=== PATIENT | female | born 1950 | race Caucasian/White ===

== ENCOUNTER → 2016-03-18 | Outpatient (CLI) | payer OTHER ==
[~2016-03-18] MED LIST: ATOR-54 PO; CHOL100010 PO; CITA20TA4 PO; FLNIN NAE; GLC/500 PO; LEVO88TA PO; OMEP20CA9 PO
--- NOTE | 2016-03-18 13:53 | MAMMOGRAPHY REPORT ---
BILATERAL DIGITAL DIAGNOSTIC MAMMOGRAM TOMOSYNTHESIS WITH CAD AND TARGETED LEFT ULTRASOUND: 7 CLINICAL HISTORY: History of right breast cancer status post treatment. Also with history of left br east calcifications in which stereotactic biopsy yielded atypical ductal hyperplasia, status post hdz rgical excision. TECHNIQUE: Breast tomosynthesis in addition to standard 2D mammography was performed. Current study was also evaluated with a Computer Aided Detection (CAD) system. Bilateral CC and MLO 2-D and yemi synthesis images and spot magnification left CC and ML views were obtained. COMPARISON: Comparison is made to exams dated: 10/27/2015 mammogram, 09/28/2015 mammogram, 12/23/2014 mammogram, 07/19/2013 mammogram, 07/18/2012 mammogram, and 02/09/2011 mammogram - [facility]. BREAST COMPOSITION: The tissue of both breasts is heterogeneously dense, which may obscure small ma sses. FINDINGS: There are new post surgical changes in the left lateral breast from a left breast surgical excision for atypia. Spot magnification views of the left breast demonstrate a new 6 mm cluster of coarse heterogeneous calcifications in the left breast at approximately 2 to 3:00 in the region of the surgical bed. These do not appear to be associated with a vessel and therefore do not appear to be vascular in origin. Given the history of left breast calcifications yielding atypia, the calcif ications are indeterminate and stereotactic biopsy is recommended for further evaluation. The remainder of both breasts are stable compared to prior exams, without suspicious masses, calcifi cations, or areas of architectural distortion noted. Other lateral benign calcifications are not si gnificantly changed. There are stable postsurgical changes in the right breast from prior lumpectom y. A biopsy marker clip is again noted within the left medial anterior breast. Targeted ultrasound was performed of the previously seen left breast masses. In the left breast at 7:00, 2 cm from the nipple, again noted is a slightly hypoechoic mass which measures 5 x 3 x 4 mm, s table compared to the December 2014 exam. In the left breast at 9:00, 1 cm from the nipple, again no shilo is an oval hypoechoic parallel mass which measures 5 x 4 x 2 mm, also stable compared to the Dec exam. Another oval hypoechoic mass in the left breast at 9:00, 1 cm from the nipple perlita uring 3 x 2 x 2 mm is also not significantly changed compared to the September 2015 exam. In the left breast at 9:00 subareolar region, there is an oval anechoic cyst with an isoechoic portion seen ante riorly, with the isoechoic portion measuring 3 x 2 mm and the cystic portion measuring 6 x 3 mm. Th is is probably benign and likely represents a complicated cyst. In the left breast at 12:00, 1 cm f rom the nipple, again noted is a hypoechoic circumscribed mass which measures 3 x 2 x 3 mm, which ap pears decreased compared to the December 2014 exam and is therefore benign and likely represents a c yst. IMPRESSION: ACR BI-RADS CATEGORY 4: SUSPICIOUS, TARGETED ULTRASOUND ACR BI-RADS CATEGORY 4: SUSPICI OUS 1. New 6 mm cluster of calcifications in the left 2 to 3:00 breast. Given the history of prior lef t breast calcifications which yielded atypia, the calcifications are indeterminate and stereotactic biopsy is recommended for further evaluation. 2. Multiple small similar appearing masses in the left breast on ultrasound, most which are stable dating back to the December 2014 exam and are therefore probably benign. Recommend follow-up ultras ound of the left breast in 6 months to reevaluate. A phone call was made to the physician's office to confirm faxed results were received. The patient has been verbally notified of the results. Approximately 10% of breast cancers are not detected with mammography. A negative mammographic repor t should not delay biopsy if a clinically suggestive mass is present. Nancy Kelly M.D. ah/:03/18/2016 12:01:37 Passenger Coach Driver: Shweta CARDONA)(Julianna), [facility] letter sent: Abnormal 4/5 BI-RADS Code: ACR BI-RADS Category 4: Suspicious Ultrasound BI-RADS: ACR BI-RADS Category 4: Suspic ious
== END | disposition home or self-care (01) ==
LOC: C.MAMM 09:03
PROVIDERS: ATTEND Surgery
DX: Z85.3 Personal history of malignant neoplasm of breast (principal); Z12.39 Encounter for other screening for malignant neoplasm of breast; R92.1 Mammographic calcification found on diagnostic imaging of breast; N63 Unspecified lump in breast

== ENCOUNTER → 2016-04-14 | Outpatient (CLI) | payer OTHER ==
--- NOTE | 2016-04-14 13:22 | Discharge Instructions ---
Discharge Instructions Procedure Procedure Date: Apr 14, 2016. Reason for visit: Left Calcifications. Discharge Discharge Date: Apr 14, 2016. Discharge Diagnosis: status post breast biopsy Instructions Activity Recommendations: Additional Limitations (see below) Return to School/Work: no limitations Recommended Home Diet: No Limitations Provider Instructions: ACTIVITY RECOMMENDATIONS: * No lifting, pushing, pulling or exercising the affected side for three days. RETURN TO SCHOOL/WORK: * You may return to work/school after the procedure, but do not perform any strenuous activities for 24 to 48 hours. MEDICATIONS: * Tylenol (two 325 mg) every four to six hours if needed for mild pain (if not allergic to Tylenol). DIET: * Resume previous diet. SPECIAL CARE INSTRUCTIONS: * Keep biopsy site dry for 24 hours. May shower after 24 hours, but do not soak (bathe) incision. * May remove Tegaderm (plastic patch) tomorrow AFTER showering. * Leave the steri-strips on for one week. Allow the steri-strips to fall off by themselves. If not off after one week, you may remove them. You may place a Bandaid crosswise over the strips, if desired. * Apply ice 10 minutes on and 10 minutes off as needed. * Wear a bra at bedtime to sleep more comfortably for 2-3 days. * Your referring physician should have the results after approximately 5 to 7 business days. * Call for unusual bleeding, fever, drainage, etc or if you have any questions call during normal business hours or after hours call Dr Kelly, [phone]. FOLLOW UP VISIT: Follow-up with Referring Physician as scheduled. Allergies Coded Allergies: Adhesives (Verified Allergy, Unknown, ITCHY, 10/25/12) Latex1 -Allergic Contact Dermititis (Verified Allergy, Unknown, LOCALIZED RASH, 10/25/12) Vinny Corado Recommendations: Call your doctor if: * Temperature above 101 degrees * Pain not relieved by pain medicine ordered * There is increased drainage or redness from any incision * You have any unanswered questions or concerns. Your Doctors Instructions noted above were prepared by provider Nancy Kelly. Patient Signature Section: Patient Instructions Signature Page Patricia Ryan Patient (or Guardian) Signature/Date: I have read and understand the instructions given to me by my caregivers. Caregiver/RN/Doctor Signature/Date: The above-named patient and/or guardian has received patient instructions on this date. + Original Patient Signature Page (only) stays with chart. Please make copy for patient.
--- NOTE | 2016-04-14 15:37 | MAMMOGRAPHY REPORT ---
UNILATERAL LEFT DIGITAL DIAGNOSTIC MAMMOGRAM: 04/14/2016 CLINICAL HISTORY: Status post stereotactic biopsy of left breast calcifications. TECHNIQUE: Postprocedural left CC and LM views were obtained. COMPARISON: Comparison is made to exams dated: 03/18/2016 mammogram, 10/27/2015 stereotactic biopsy, 09/28/2015 mammogram, 12/23/2014 mammogram, and 07/19/2013 mammogram - [facility]. BREAST COMPOSITION: The tissue of the left breast is heterogeneously dense, which may obscure small masses. FINDINGS: A new biopsy marker clip is seen within the left breast status post stereotactic biopsy o f left 3:00 breast calcifications. There is mild medial migration of the biopsy marker clip from th e biopsy site by approximately 2 cm, likely due to accordion effect. However, there are some residu al calcifications at the biopsy site which could be localized if surgical excision is needed. No si gnificant postbiopsy hematoma is seen. IMPRESSION: POST PROCEDURE IMAGING FOR MARKER PLACEMENT New biopsy marker clip status post stereotactic biopsy of left breast calcifications. There is medi al migration of the biopsy marker clip as described above. Pathology results are pending. Approximately 10% of breast cancers are not detected with mammography. A negative mammographic repor t should not delay biopsy if a clinically suggestive mass is present. Nancy Kelly M.D. ah/:04/14/2016 13:40:05 Hospice Community Liaison: Sirisha CARDONA)(M), [facility] BI-RADS Code: Post Procedure Imaging For Marker Placement
--- NOTE | 2016-04-14 15:37 | MAMMOGRAPHY REPORT ---
STEREOTACTIC GUIDED BIOPSY LEFT BREAST: 04/14/2016 CLINICAL HISTORY: Indeterminate cluster of calcifications in the left 2 to 3:00 breast. PATIENT CONSENT: The procedure, risks, benefits, and alternatives of stereotactic biopsy with clip p lacement were discussed with the patient, and verbal and written consent was obtained. A timeout wa s performed immediately prior to the procedure. PROCEDURE DESCRIPTION: With stereotactic guidance, aseptic technique, and lidocaine as a local anest hetic (1% lidocaine to anesthetize the skin and 1% lidocaine with epinephrine to anesthetize the celso per tissues), the area of concern was sampled multiple times with a 9-gauge vacuum-assisted biopsy n eedle ([employer]). The path of approach was lateral. The specimen radiograph demonstrates calcif ications to be present in the samples. The samples containing calcifications (labeled A) were separ ated from the samples without calcifications (labeled B). A metallic marker clip was placed at the biopsy site. This was confirmed on postprocedure mammograms. Direct pressure was applied at the bi opsy site and hemostasis was readily achieved. The patient tolerated the procedure without complica tion. She was given wound care instructions. COMPARISON: Comparison is made to exams dated: 03/18/2016 mammogram, 09/28/2015 mammogram, 10/27/2015 stereotactic biopsy, 12/23/2014 mammogram, and 07/19/2013 mammogram - [facility] [address]. IMPRESSION: STEREOTACTIC GUIDED BIOPSY Stereotactic biopsy of indeterminate calcifications in the left lateral breast at approximately 2 to 3:00, with clip placement. The patient will receive pathology results from her referring provider. Nancy Kelly M.D. ah/:04/14/2016 13:24:47 Attending Technologist: Michael Gonzalez RT(R)(M), [facility] [address] Nut Packer: Sirisha Alfredo RT(R)(M), [facility] [address]
== END | disposition home or self-care (01) ==
LOC: C.MAMM 12:28
PROVIDERS: ATTEND Surgery
DX: R92.1 Mammographic calcification found on diagnostic imaging of breast (principal)

== ENCOUNTER → 2016-10-14 | Outpatient (CLI) | payer OTHER ==
--- NOTE | 2016-10-17 15:52 | MAMMOGRAPHY REPORT ---
ULTRASOUND OF LEFT BREAST: 10/14/2016 CLINICAL HISTORY: History of right breast cancer status post treatment. Also with history of left afua ast calcifications in which stereotactic biopsy yielded atypical ductal hyperplasia, status post surg ical excision. The patient also had a recent benign left breast stereotactic biopsy. The patient pr esents for short interval follow-up of left breast masses. COMPARISON: Comparison is made to exams dated: 04/14/2016 stereotactic biopsy, 03/18/2016 mammogram, 11/2016 ultrasound, 10/27/2015 stereotactic biopsy, 10/27/2015 mammogram, and 12/31/2014 ultrasound - [facility]. TECHNIQUE: Real-time targeted ultrasound of the left breast was performed. FINDINGS: Real-time, high resolution targeted ultrasound was performed of the previously seen left b reast masses. In the left breast at 7:00, approximately 2-3 cm from the nipple, again noted is an ov al slightly hypoechoic 5 x 4 x 4 mm mass. The mass is not significantly changed dating back to the 2014 and September 2015 exams, when accounting for slight differences in measurement technique. In the left breast at 9:00, 1 cm from the nipple, again noted is an oval slightly hypoechoic mass wh ich measures 5 x 3 x 3 mm, not significantly changed dating back to at least the September 2015 exam and likely also the December 2014 exam. In the left breast at 9:00, 1 cm from the nipple, there is also an oval circumscribed anechoic mass which measures 4 x 5 mm, not significantly changed and has the a ppearance of a cyst on today's exam. In the left breast at 9:00 subareolar region, there is a circumscribed nearly anechoic 3 x 3 mm mass which is probably benign and likely represents a cyst. In the left 9:00 subareolar breast, again not ed is a mixed echogenicity circumscribed 6 x 3 x 3 mm mass, which contains an isoechoic as well as an echoic portion and is not significantly changed compared to the Mar 2016 exam and is probably benign and may represent a complicated cyst. In the left 9:00 subareolar breast, there is also a small isoe choic 3 x 2 x 2 mm mass, which is also unchanged compared to the Mar 2016 exam. In the left 12:00 br east, 1 cm from the nipple, there is an oval circumscribed anechoic 3 x 2 x 3 mm mass, which is uncha nged and has the appearance of a benign simple cyst on today's exam. Given the stability of the mass es, the masses are probably benign. Recommend another short interval follow-up in 6 months at the [facility] of routine mammograms. IMPRESSION: ACR-BI-RADS CATEGORY 3: PROBABLY BENIGN - FOLLOW-UP RECOMMENDED Multiple small masses in the left breast on ultrasound are stable compared to prior exams and are pro bably benign. Recommend another short interval follow-up targeted ultrasound in 6 months to reevaluat e benign-appearing masses in the left 7 and 9:00 breast. Routine bilateral diagnostic tomosynthesis m ammograms can be performed at that time. The patient was verbally notified of the results. Nancy Kelly M.D. ah/:10/14/2016 17:22:58 Legal Examiner: hSweta CARDONA)(Julianna), [facility] letter sent: Follow Up Recommended 3 BI-RADS Code: ACR-BI-RADS Category 3: Probably Benign
== END | disposition home or self-care (01) ==
LOC: C.MAMM 10:57
PROVIDERS: ATTEND Surgery
DX: N63 Unspecified lump in breast (principal)

== ENCOUNTER → 2017-05-19 | Outpatient (CLI) | payer OTHER ==
--- NOTE | 2017-05-22 07:46 | MAMMOGRAPHY REPORT ---
BILATERAL DIGITAL DIAGNOSTIC MAMMOGRAM TOMOSYNTHESIS WITH CAD AND TARGETED LEFT ULTRASOUND: 05/19/2017 CLINICAL HISTORY: History of right breast cancer status post treatment. Also with history of left afua ast calcifications in which stereotactic biopsy yielded atypical ductal hyperplasia, status post surg ical excision in 2015. She also underwent stereotactic biopsy of left breast calcifications April 25 which yielded benign findings including usual ductal hyperplasia. She presents for follow-up of l eft breast masses and for routine bilateral mammography. TECHNIQUE: Breast tomosynthesis in addition to standard 2D mammography was performed. Current study was also evaluated with a Computer Aided Detection (CAD) system. Bilateral CC and MLO 2D and tomosyn thesis images and spot magnification left CC and ML views were obtained. COMPARISON: Comparison is made to exams dated: 10/14/2016 ultrasound, 04/14/2016 mammogram, 03/18/2016 ma mmogram, 10/27/2015 mammogram, 09/28/2015 mammogram, and 12/23/2014 mammogram - [facility]. BREAST COMPOSITION: There are scattered areas of fibroglandular density in both breasts. FINDINGS: There are stable postsurgical changes in the right upper outer quadrant from prior lumpecto my as well as left upper outer quadrant from prior surgical excision for atypia. Numerous biopsy mar ker clips are again noted within the left breast. Bilateral benign-appearing calcifications are not significantly changed. Targeted ultrasound was performed of the areas of the previously seen left breast masses. In the lef t breast at 7:00, 3 cm from the nipple, again noted is an oval hypoechoic mass which measures 5 x 3 x 3 mm, not significantly changed dating back to the December 2014 exam. In the left breast at 9:00, 1 cm from the nipple, again noted is an oval slightly hypoechoic 5 x 4 mm mass which is not significa ntly changed compared to the December 2014 exam. An oval anechoic cyst measuring 5 mm is also seen w ithin the left breast at 9:00, 1 cm from the nipple, unchanged. The left subareolar breast there is a small isoechoic benign-appearing 3 x 2 mm mass which is also unchanged. A small oval anechoic bridgett gn simple cyst measuring 3 mm is seen within the left 12:00 breast, 1 cm from the nipple. IMPRESSION: ACR-BI-RADS CATEGORY 3: PROBABLY BENIGN, TARGETED ULTRASOUND ACR-BI-RADS CATEGORY 3: PRO BABLY BENIGN No mammographic evidence of malignancy in either breast. Small left breast masses at 7:00 and 9:00 s een on ultrasound are stable compared to multiple prior exams and are probably benign. Recommend michael ateral diagnostic tomosynthesis mammograms and repeat targeted ultrasound of the left breast in 12 mo nths to confirm longer stability. The patient has been verbally notified of the results. Approximately 10% of breast cancers are not detected with mammography. A negative mammographic report should not delay biopsy if a clinically suggestive mass is present. Nancy Kelly M.D. ah/:05/19/2017 15:45:25 Monomer Recovery Supervisor: Michael CRAFT(R)(M), [facility] letter sent: Follow Up Recommended 3 BI-RADS Code: ACR-BI-RADS Category 3: Probably Benign Ultrasound BI-RADS: ACR-BI-RADS Category 3: Pr obably Benign
== END | disposition home or self-care (01) ==
LOC: C.MAMM 10:22
PROVIDERS: ATTEND Surgery
DX: R92.1 Mammographic calcification found on diagnostic imaging of breast (principal); Z85.3 Personal history of malignant neoplasm of breast

== ENCOUNTER 2020-07-02 17:04 | Observation (INO) ==
--- NOTE | 2020-07-02 18:16 | Emergency Department Note ---
History of Present Illness General Chief complaint: Chest Pain Stated complaint: CHEST PAIN Time Seen by Provider: 07/02/20 18:01 Source: patient Mode of arrival: ambulatory Limitations: no limitations History of Present Illness Provider complaint: Chest pain Onset (ago): hour(s) Location: chest Radiation: non-radiation Severity: mild Pain Consistency: + now resolved Maximum Pain Intensity: 3 Current Pain Intensity: 0 Quality: + constant Relieved By: + none Exacerbated By: + none Associated symptoms: + nausea/vomiting; no fever/chills and no shortness of breath Treatments prior to arrival: none This is a 70-year-old female presents the emergency department with a complaint of chest pain that began earlier today. Patient states chest pain lasted about 45 minutes and then resolved spontaneously by the time she arrived here. Patient does have a history of CAD and does have a stent placed by Dr. Arango and to her "left main". Patient follows with Dr. Aguero routinely and actually saw him earlier this morning, prior to the onset of any symptoms. She states during this event she felt queasy/nauseated however did not vomit. Denies any coming dizziness/lightheadedness, or shortness of breath. Patient states she has intermittently noticed pain in her right neck recently, however this was not pronounced during the chest pain. Chest pain otherwise nonradiating, describes it as central and along the inferior medial aspect of the right breast. No other accompanying cough or cold symptoms recently, no fevers or chills. She denies any recent change in medications or diet. No recent change in activity. No history of GERD or reflux. Patient had not eaten since earlier this morning. Pt seen during a time of high acuity and national emergency pandemic while wearing PPE. Home Medications Medication Instructions Recorded Confirmed Type Jardiance 10 mg PO DAILY 07/02/20 07/02/20 History aspirin 81 mg PO HS 07/02/20 07/02/20 History citalopram 30 mg PO HS 07/02/20 07/02/20 History ergocalciferol (vitamin D2) 1,250 mcg PO WK 07/02/20 07/02/20 History [Vitamin D2] levothyroxine 88 mcg PO QAM 07/02/20 07/02/20 History metoprolol tartrate 12.5 mg PO Q12H 07/02/20 07/02/20 History omeprazole 20 mg PO DAILY PRN 07/02/20 07/02/20 History rosuvastatin 40 mg PO DAILY 07/02/20 07/02/20 History isosorbide mononitrate 30 mg PO QAM #30 tab 07/03/20 Rx Allergies Allergy/AdvReac Type Severity Reaction Status Date / Time adhesive Allergy Mild ITCHY Verified 07/02/20 18:52 latex Allergy Mild LOCALIZED Verified 07/02/20 18:52 RASH Past Med/Surg History Social History Smoking Status: Never smoker Second Hand Exposure: No; Do You Dip or Chew Tobacco: No; Hx Alcohol Use: No Hx Substance Use: No Preferred Language: Latvian Communication Ability: Effective Law Firm Consultant Required: No Beliefs That Will Affect Care: Hinduism marital status: Current Living Situation: Spouse Other Information That Helps Us Care for You: No Feels Safe at Home: Yes Safety Concerns: Feels Safe At This Time Assistive Devices: None Review of Systems See HPI for pertinent positives & negatives. and A total of 10 systems reviewed and were otherwise negative Physical Exam Vital Signs Vital Signs - 24 hr 07/02/20 17:11 Temperature 36.3 C L Temperature Source Temporal Artery Scan Pulse Rate 60 Respiratory Rate 18 Respiratory Effort / Characteristics Non-Labored Respiratory Depth Normal Blood Pressure 173/92 H Blood Pressure Mean 119 Pulse Oximetry 97 Oxygen Delivery Method Room Air Sepsis Recent Fever Within 48 Hours No Sepsis New/Unexplained Change in Mental Status No Sepsis Action Taken by Nursing No Action Required GENERAL: alert, well appearing, well nourished, no distress, non-toxic EYE EXAM: normal conjunctiva, PERRL and EOM's grossly intact OROPHARYNX: no exudate, no erythema, lips, buccal mucosa, and tongue normal and mucous membranes are moist NECK: supple, no nuchal rigidity, no adenopathy, non-tender LUNGS: Clear to auscultation. Normal chest wall mechanics, no w/r/r HEART: no murmurs, S1 normal and S2 normal, no reproducible pain with palpation. ABDOMEN: abdomen soft, non-tender, normo-active bowel sounds, no masses, no rebound or guarding. BACK: Back is symmetrical on inspection and there is no deformity, no midline tenderness, no CVA tenderness. SKIN: no rashes and no bruising UPPER EXTREMITIES: upper extremities are grossly normal. FROM, nml pulses b/l. LOWER EXTREMITIES: No pitting edema. FROM, nml pulses b/l. NEURO EXAM: Normal sensorium, cranial nerves II-XII grossly intact, normal speech, no gross weakness of arms, no gross weakness of legs. Gross sensation intact. Course Administered Medications Discontinued Medications Aspirin (Aspirin 81 Mg Ectab) 81 mg PO NOW STA Stop: 07/02/20 23:02 Last Admin: 07/03/20 00:35 Dose: 81 mg Documented by: [id number] Atropine Sulfate (Atropine Sulfate 0.1 Mg/Ml 10ml Syr) Confirm Administered Dose 2 mg IV .STK-MED ONE Stop: 07/03/20 09:51 Last Admin: 07/03/20 11:27 Dose: Not Given Documented by: [id number] Citalopram Hydrobromide (Citalopram 20 Mg Tab) 30 mg PO NOW STA Stop: 07/02/20 23:02 Last Admin: 07/03/20 00:34 Dose: 30 mg Documented by: [id number] Dobutamine HCl (Dobutamine Hcl 12.5 Mg/Ml 20 Ml Vial) Confirm Administered Dose 250 mg IV .STK-MED ONE Stop: 07/03/20 09:52 Last Admin: 07/03/20 11:28 Dose: 1 dose Documented by: [id number] Sodium Chloride (Nss 1000ml) 1,000 mls @ 80 mls/hr IV .[id number] [facility] Stop: 07/03/20 11:30 Last Infusion: 07/03/20 12:20 Dose: 0 mls/hr Documented by: [id number] Admin: 07/02/20 23:49 Dose: 80 mls/hr Documented by: [id number] Insulin Aspart (Insulin Aspart 100 Units/Ml 3 Ml Pen) 0 units SC ACHS FRANNY Stop: 08/02/20 07:29 Last Admin: 07/03/20 12:45 Dose: Not Given Documented by: [id number] Cosigned by: [id number] Admin: 07/03/20 09:24 Dose: Not Given Documented by: [id number] Cosigned by: [id number] Ioversol (Optiray 350 500ml) 110 ml IV ONCE ONE Stop: 07/02/20 21:44 Last Admin: 07/02/20 21:43 Dose: 110 ml Documented by: [id number] Isosorbide Mononitrate (Isosorbide [place] Extended Rel 30 Mg Tabcr) 30 mg PO QAM [facility] Stop: 08/02/20 10:59 Last Admin: 07/03/20 11:30 Dose: 30 mg Documented by: [id number] Levothyroxine Sodium (Levothyroxine Sodium 88 Mcg Tablet) 88 mcg PO DAILYBB [facility] Stop: 08/02/20 06:29 Last Admin: 07/03/20 05:54 Dose: 88 mcg Documented by: [id number] Metoprolol Tartrate (Metoprolol Tartrate 25 Mg Tab) 12.5 mg PO Q12 [facility] Stop: 08/01/20 23:00 Last Admin: 07/03/20 09:25 Dose: Not Given Documented by: [id number] Admin: 07/03/20 00:41 Dose: Not Given Documented by: [id number] Metoprolol Tartrate (Metoprolol Tartrate 1 Mg/Ml Vial) Confirm Administered Dose 10 mg IV .[employer] [facility] Stop: 07/03/20 09:51 Last Admin: 07/03/20 11:27 Dose: 5 mg Documented by: [id number] Rosuvastatin Calcium (Rosuvastatin Calcium 20 Mg Tab) 40 mg PO DAILY [facility] Stop: 08/02/20 08:59 Last Admin: 07/03/20 09:25 Dose: Not Given Documented by: [id number] Medical Decision Making Differential Diagnosis Differential diagnoses includes but is not limited to acute coronary syndrome, myocardial infarction, pericarditis, pulmonary embolus, aortic dissection, p neumonia, pneumothorax, musculoskeletal, shingles, esophageal. Medical Records Attestation: I reviewed the patient's medical records. Home Medications Current Medication List: was personally reviewed by me Laboratory Data Attestation: I reviewed the patient's lab results. Result diagrams: 07/03/20 06:04 07/03/20 06:04 Lab Results 07/02/20 07/02/20 07/02/20 Range/Units 18:15 18:15 18:15 WBC 9.79 (4.8-10.8) K/uL RBC 5.23 (4.2-5.4) M/uL Hgb 16.2 H (12.0-16.0) g/dL Hct 48.4 H (37-47) % MCV 92.5 (80-100) fL MCH 31.0 (25-34) pg MCHC 33.5 (32-36) g/dL RDW Std Deviation 47.7 H (36.4-46.3) fL RDW Coeff of Freya 14.1 (11.5-14.5) % Plt Count 572 H (130-400) K/uL MPV 10.8 H (7.4-10.4) fL Immature Gran % (Auto) 0.3 % Neut % (Auto) 69.3 % Lymph % (Auto) 19.6 % [place] % (Auto) 9.4 % Eos % (Auto) 0.8 % Baso % (Auto) 0.6 % Neut # (Auto) 6.78 H (1.4-6.5) K/uL Lymph # (Auto) 1.92 (1.2-3.4) K/uL [place] # (Auto) 0.92 H (0.11-0.59) K/uL Eos # (Auto) 0.08 (0-0.5) K/uL Baso # (Auto) 0.06 (0-0.2) K/uL Immature Gran # (Auto) 0.03 H (0.00-0.02) K/uL PT 10.3 (9.0-12.0) Seconds INR 1.0 (0.9-1.1) APTT 28.8 (21.0-31.0) Seconds PTT Ratio 1.1 D-Dimer 520 H* (0-500) ug/L FEU Sodium 138 (136-145) mmol/L Potassium 3.8 (3.5-5.1) mmol/L Chloride 105 (98-107) mmol/L Carbon Dioxide 26 (21-32) mmol/L Anion Gap 7.0 (3-11) BUN 14 (7-18) mg/dl Creatinine 0.75 (0.6-1.2) mg/dl Est Cr Clr Drug Dosing 51.2 ml/min Est GFR ( Amer) 92.3 ml/min Est GFR (Non-Af Amer) 79.6 ml/min BUN/Creatinine Ratio 19.0 (10-20) Glucose 127 H (70-99) mg/dl Calcium 9.6 (8.5-10.1) mg/dl Magnesium 2.4 (1.8-2.4) mg/dl Total Bilirubin 0.5 (0.2-1) mg/dl AST 14 L (15-37) U/L ALT 26 (12-78) U/L Alkaline Phosphatase 102 (45-117) U/L Troponin I < 0.015 (0-0.045) ng/ml NT-Pro-B Natriuret Pep 52 (0-900) pg/ml Total Protein 8.5 H (6.4-8.2) gm/dl Albumin 3.8 (3.4-5.0) gm/dl Globulin 4.7 H (2.5-4.0) gm/dl Albumin/Globulin Ratio 0.8 L (0.9-2) Lipase 111 (73-393) U/L TSH 0.755 (0.300-4.500) uIu/ml COVID-19 Eval Order SARS-CoV-2 (PCR) (Negative) 07/02/20 07/02/20 Range/Units 20:29 20:29 WBC (4.8-10.8) K/uL RBC (4.2-5.4) M/uL Hgb (12.0-16.0) g/dL Hct (37-47) % MCV (80-100) fL MCH (25-34) pg MCHC (32-36) g/dL RDW Std Deviation (36.4-46.3) fL RDW Coeff of Freya (11.5-14.5) % Plt Count (130-400) K/uL MPV (7.4-10.4) fL Immature Gran % (Auto) % Neut % (Auto) % Lymph % (Auto) % [place] % (Auto) % Eos % (Auto) % Baso % (Auto) % Neut # (Auto) (1.4-6.5) K/uL Lymph # (Auto) (1.2-3.4) K/uL [place] # (Auto) (0.11-0.59) K/uL Eos # (Auto) (0-0.5) K/uL Baso # (Auto) (0-0.2) K/uL Immature Gran # (Auto) (0.00-0.02) K/uL PT (9.0-12.0) Seconds INR (0.9-1.1) APTT (21.0-31.0) Seconds PTT Ratio D-Dimer (0-500) ug/L FEU Sodium (136-145) mmol/L Potassium (3.5-5.1) mmol/L Chloride (98-107) mmol/L Carbon Dioxide (21-32) mmol/L Anion Gap (3-11) BUN (7-18) mg/dl Creatinine (0.6-1.2) mg/dl Est Cr Clr Drug Dosing ml/min Est GFR ( Amer) ml/min Est GFR (Non-Af Amer) ml/min BUN/Creatinine Ratio (10-20) Glucose (70-99) mg/dl Calcium (8.5-10.1) mg/dl Magnesium (1.8-2.4) mg/dl Total Bilirubin (0.2-1) mg/dl AST (15-37) U/L ALT (12-78) U/L Alkaline Phosphatase (45-117) U/L Troponin I (0-0.045) ng/ml NT-Pro-B Natriuret Pep (0-900) pg/ml Total Protein (6.4-8.2) gm/dl Albumin (3.4-5.0) gm/dl Globulin (2.5-4.0) gm/dl Albumin/Globulin Ratio (0.9-2) Lipase (73-393) U/L TSH (0.300-4.500) uIu/ml COVID-19 Eval Order Covid19 at [facility] SARS-CoV-2 (PCR) NEGATIVE (Negative) Imaging Data My Impression: X-ray: I interpreted the following studies. Chest: A single view study of the chest was reviewed and was negative for cardiomegaly, focal infiltrate, effusion, pulmonary edema, or wide mediastinum. ECG Data Attestation: I personally reviewed and interpreted this ECG as follows: Indication: + chest pain Rate (beats per minute): 56 Rhythm: + sinus bradycardia ECG Intervals/blocks: + Normal QRS and + Normal QT ECG [place]: + Normal ECG ST segments: + Normal ST segments MDM Narrative This is a 70-year-old female presents emergency department with complaints of chest pain. Patient does have cardiac history including stenting prior. Patient was hemodynamically stable by the time of arrival pain resolved. Patient denied any changes in medications, does follow with cardiology regularly, however cannot recall her last echo or stress test. Due to patient's age, risk factors, and prior diagnosed CAD status post stenting, patient does have an elevated HEART score of 4. No other clear etiology for her chest pain earlier. Patient had a mildly elevated D-dimer, however when age-adjusted would be negative. Given patient's presentation and resolution of symptoms by arrival, I do not suspect PE. I do not otherwise suspect acute vascular phenomenon including dissection, thoracic aneurysm. I do not suspect GI bleed, perforation, mediastinitis, occult pneumonia, pleural effusion, pericarditis/telly carditis. Patient remained hemodynamically stable in the emergency room. Case discussed with hospitalist for additional evaluation and management. Patient had no recurrence of symptoms while here in the ER, no ectopy or dysrhythmia noted on telemetry. An order was placed for continuous cardiac monitoring. The monitor shows a rate of _60_ with _normal sinus_ rhythm. Impression & Plan Atypical chest pain Discharge Plan Visit Data Chief Complaint: Chest Pain Stated Complaint: CHEST PAIN ED Provider: Leeann Cruz Discharge Problem: Atypical chest pain Patient Disposition: Admitted As Inpatient Condition: Good Discharge Instructions Interventions: ED Discharge Assessment Last Done: 07/02/20 22:06
[2020-07-02 18:32] LABS: Basophils # (auto) 0.06 K/uL (0-0.2); Basophils % (auto) 0.6 %; Eosinophils # (auto) 0.08 K/uL (0-0.5); Eosinophils % (auto) 0.8 %; Hematocrit (blood only) 48.4 % (37-47); Hemoglobin 16.2 g/dL (12.0-16.0); Immature Granulocytes # (auto) 0.03 K/uL (0.00-0.02); Immature Granulocytes % (auto) 0.3 %; Lymphocytes # (auto) 1.92 K/uL (1.2-3.4); Lymphocytes % (auto) 19.6 %; Mean Corpuscular Hgb Conc 33.5 g/dL (32-36); Mean Corpuscular Volume 92.5 fL (80-100); Mean Platelet Volume 10.8 fL (7.4-10.4); Monocytes # (auto) 0.92 K/uL (0.11-0.59); Monocytes % (auto) 9.4 %; Neutrophils # (auto) 6.78 K/uL (1.4-6.5); Neutrophils % (auto) 69.3 %; Platelet Count 572 K/uL (130-400); RDW Coefficient of Variation 14.1 % (11.5-14.5); RDW Standard Deviation 47.7 fL (36.4-46.3); Red Blood Count 5.23 M/uL (4.2-5.4); White Blood Count 9.79 K/uL (4.8-10.8)
[2020-07-02 18:49] LABS: Partial Thromboplastin Ratio 1.1; Partial Thromboplastin Time 28.8 Seconds (21.0-31.0); Prothrombin Time 10.3 Seconds (9.0-12.0)
[2020-07-02 18:52] LABS: Alanine Aminotransferase 26 U/L (12-78); Albumin Level 3.8 gm/dl (3.4-5.0); Aspartate Aminotransferase 14 U/L (15-37); Blood Urea Nitrogen 14 mg/dl (7-18); Calcium 9.6 mg/dl (8.5-10.1); Carbon Dioxide 26 mmol/L (21-32); Chloride 105 mmol/L (98-107); Creatinine Clr Calc Pharmacy 51.2 ml/min; D Dimer 520 ug/L FEU (0-500); Est GFR (African American) 92.3 ml/min; Est GFR (Non-African American) 79.6 ml/min; Glucose 127 mg/dl (70-99); Lipase 111 U/L (73-393); Magnesium 2.4 mg/dl (1.8-2.4); Potassium 3.8 mmol/L (3.5-5.1); Sodium 138 mmol/L (136-145)
[2020-07-02 19:03] LABS: Albumin Globulin Ratio 0.8 (0.9-2); Alkaline Phosphatase 102 U/L (45-117); Bilirubin,Total 0.5 mg/dl (0.2-1); Globulin 4.7 gm/dl (2.5-4.0); NT Pro B Type Natriuretic Pept 52 pg/ml (0-900); Thyroid Stimulating Hormone 0.755 uIu/ml (0.300-4.500); Total Protein 8.5 gm/dl (6.4-8.2); Troponin I < 0.015 ng/ml (0-0.045)
--- NOTE | 2020-07-02 19:06 | XRay Report ---
XR chest 1V portable CLINICAL HISTORY: chest pain COMPARISON STUDY: Chest radiograph August 08, 2017. FINDINGS: Lung volumes are normal. Lungs are clear. There is no pneumothorax or pleural effusion. Car diac size is normal. Mediastinal contours are normal. There is no evidence for pulmonary edema. IMPRESSION: No acute cardiopulmonary findings. ACT 112: Negative or not required by law. Electronically signed by: Ariel Yao M.D. 07/02/2020 7:05 PM
[2020-07-02] MEDS ORDERED: OPTIRAY 350 500ml IV ONE (21:43)
[2020-07-02] MEDS ORDERED: SODIUM CHLORIDE 0.9% 1000ML 1,000 ML IV SCH (23:01)
[2020-07-02] MEDS ORDERED: ASPIRIN 81 MG ECTAB PO STA (23:01)
[2020-07-02] MEDS ORDERED: NITROGLYCERIN SL 0.4 MG/TAB TAB SL PRN (23:01)
[2020-07-02] MEDS ORDERED: ACETAMINOPHEN 325 MG TAB PO PRN (23:01)
[2020-07-02] MEDS ORDERED: CITALOPRAM 20 MG TAB PO STA (23:01)
[2020-07-02] MEDS ORDERED: PANTOprazole 40 MG TAB PO PRN (23:13)
[2020-07-02] MEDS ORDERED: GLUCAGON FOR INJ 1 MG VIAL IM PRN (23:15)
[2020-07-02] MEDS ORDERED: GLUCOSE 10 TABS/TUBE PO PRN (23:15)
[2020-07-02] MEDS ORDERED: GLUCOSE 40% GEL 15 GM TUBE PO PRN (23:15)
[2020-07-02] MEDS ORDERED: CARBOHYDRATES FOR HYPOGLYCEMIA PO PRN (23:15)
[2020-07-02] MEDS ORDERED: DEXTROSE 50% 50 ML SYRINGE IV PRN (23:15)
[2020-07-03] MEDS: METOPROLOL TARTRATE 25 MG TAB PO SCH ×2 (00:41→09:25)
--- NOTE | 2020-07-03 05:08 | History and Physical Report ---
DATE OF ADMISSION: 07/02/2020 CHIEF COMPLAINT: Chest pain. HISTORY OF PRESENT ILLNESS: A 70-year-old female with past medical history significant for type 2 diabetes, hypothyroidism, hyperlipidemia, history of CAD, status post stent to LAD, bilateral carotid artery stenosis, vitamin D deficiency, senile osteoporosis, who presents with chest pain. She was riding in the car when she noticed pain in central chest and below the right breast, discomfort like feeling, it lasted for 45 minutes. By the time, she came to the ER, the patient resolved. Pain was similar to her [place] and in the past. Currently resting comfortable and hemodynamically stable. Currently, no chest pain, no shortness of breath, no nausea, no dizziness, no headache, no blurred vision, no earache, no runny nose, no sore throat, no cough, no fevers, no abdominal pain. Normal bowel and bladder movements. Otherwise, she was ambulating fine before this episode. ALLERGIES: LATEX, LISINOPRIL, FOSAMAX. PAST MEDICAL HISTORY: As mentioned above. PAST SURGICAL HISTORY: Colonoscopy, laparoscopic cholecystectomy, ligation of oviduct, right breast lumpectomy, appendectomy. MEDICATIONS: The patient is on aspirin 81 mg p.o. at bedtime, citalopram 30 mg at bedtime, Jardiance 20 mg p.o. daily, vitamin D 1250 mcg p.o. weekly, levothyroxine 88 mcg p.o. a.m., metoprolol tartrate 12.5 mg p.o. b.i.d., omeprazole 20 mg p.o. daily p.r.n., rosuvastatin 40 mg p.o. daily. FAMILY HISTORY: Significant for mother has hypertension, father had heart attack. SOCIAL HISTORY: No smoking, no alcohol, no drug use. REVIEW OF SYMPTOMS: As per HPI. Rest of review of systems negative. PHYSICAL EXAMINATION: GENERAL: The patient is of moderate built, not in acute distress. VITAL SIGNS: Temperature 36.7, pulse 61, respiratory rate 16, blood pressure 117/76, oxygen 96% on room air. HEENT: Pupils equal, round, reactive to light. Oral mucosa moist. NECK: No JVD. No neck masses. CARDIOVASCULAR: S1, S2 heard, regular rate and rhythm. No murmur, no gallop. RESPIRATORY SYSTEM: Normal AP diameter. No accessory muscle use. No wheezing, no crackles. ABDOMEN: Soft. Bowel sounds present, nontender. No distention. CENTRAL NERVOUS SYSTEM: Cranial nerves II-XII grossly intact. Nonfocal. EXTREMITIES: No edema, no erythema. LABORATORY DATA: WBC 9.7, hemoglobin 16.2, hematocrit 48.4, platelets 572. PT 10.3, INR 1, APTT 28.18. D-dimer 520. Sodium 138, potassium 3.8, chloride 105, bicarbonate 26, BUN 14, creatinine 0.7, serum glucose 127, calcium 9.6, magnesium 2.4, total bilirubin 0.5, AST 14, ALT 26, alkaline phosphatase 102, troponin I less than 0.015. BNP 52. Lipase 111. TSH 0.7. SARS-CoV-2 PCR negative. IMAGING: Chest x-ray: No acute cardiopulmonary findings. CT of the chest, preliminary report, no PE, no acute findings. EKG: Sinus bradycardia, rate of 56, no acute ST changes seen. ASSESSMENT AND PLAN: This is a 70-year-old female who presents with chest pain. 1. Chest pain. History of coronary artery disease. Initial workup was negative. We will follow with serial enzymes, echo, keep n.p.o. after midnight and consult cardiology in a.m. for further recommendations. 2. History of coronary artery disease, status post stent. Continue statin, beta guillermina, and aspirin. 3. History of hypothyroidism. Continue Synthroid. 4. Hyperlipidemia. Continue statin. 5. Diabetes. Hold Jardiance, placed on insulin sliding scale. 6. Deep venous thrombosis prophylaxis, sequential compression devices. DISPOSITION: Observation in tele. Expect discharge and follow with family doctor. Level 1 full code. MTDD
[2020-07-03 06:27] LABS: Basophils # (auto) 0.03 K/uL (0-0.2); Basophils % (auto) 0.3 %; Eosinophils # (auto) 0.12 K/uL (0-0.5); Eosinophils % (auto) 1.1 %; Hematocrit (blood only) 45.2 % (37-47); Hemoglobin 15.4 g/dL (12.0-16.0); Immature Granulocytes # (auto) 0.03 K/uL (0.00-0.02); Immature Granulocytes % (auto) 0.3 %; Lymphocytes # (auto) 2.23 K/uL (1.2-3.4); Lymphocytes % (auto) 20.8 %; Mean Corpuscular Hemoglobin 30.9 pg (25-34); Mean Corpuscular Hgb Conc 34.1 g/dL (32-36); Mean Corpuscular Volume 90.8 fL (80-100); Mean Platelet Volume 10.6 fL (7.4-10.4); Monocytes # (auto) 1.07 K/uL (0.11-0.59); Neutrophils # (auto) 7.24 K/uL (1.4-6.5); Neutrophils % (auto) 67.5 %; Platelet Count 495 K/uL (130-400); RDW Coefficient of Variation 13.9 % (11.5-14.5); RDW Standard Deviation 45.5 fL (36.4-46.3); Red Blood Count 4.98 M/uL (4.2-5.4); White Blood Count 10.72 K/uL (4.8-10.8)
[2020-07-03] MEDS ORDERED: LEVOTHYROXINE SODIUM 88 MCG TABLET PO SCH (06:30)
[2020-07-03 07:01] LABS: BUN Creatinine Ratio 22.8 (10-20); Blood Urea Nitrogen 13 mg/dl (7-18); Calcium 8.7 mg/dl (8.5-10.1); Carbon Dioxide 23 mmol/L (21-32); Chloride 110 mmol/L (98-107); Est GFR (African American) 106.1 ml/min; Est GFR (Non-African American) 91.6 ml/min; Glucose 107 mg/dl (70-99); Magnesium 2.3 mg/dl (1.8-2.4); Potassium 3.7 mmol/L (3.5-5.1); Sodium 139 mmol/L (136-145)
[2020-07-03 07:06] LABS: Troponin I < 0.015 ng/ml (0-0.045)
--- NOTE | 2020-07-03 07:39 | CT Scan Report ---
CHEST CTA for PULMONARY ARTERIES CT DOSE: 214.07 mGy.cm HISTORY: Shortness of breath. TECHNIQUE: Multiaxial CT images of the chest were performed following the intravenous administration of contrast to evaluate the pulmonary arteries. Maximal intensity projection images were also obtaine d. A dose lowering technique was utilized adhering to the principles of ALARA. COMPARISON STUDY: None. FINDINGS: Normal caliber thoracic aorta with no evidence for dissection. 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 Nondiagnostic evaluation the bilateral lower lobe subsegmental pulmonary arteries d ue to the respiratory motion artifact. Otherwise, the remaining pulmonary arteries show no filling de fects to suggest a pulmonary embolus. Prominent mediastinal and bilateral hilar lymph nodes. Dominant AP window lymph node measures 17 x 11 mm. The remaining pulmonary lymph nodes are subcentimeter in s hort axis diameter. The heart is normal in size. No pleural or pericardial effusions. A 2 cm hypodens e lesion within the posterior segment of the right hepatic lobe. This favors a cyst. Cholecystectomy. The visualized spleen is unremarkable. Normal esophagus. Postoperative changes within the right krista st. Slightly heterogeneous left thyroid lobe is noted. No suspicious lytic or blastic osseous lesions . No pneumothorax. The central airways are patent. A 3 mm nodule within the right upper lobe in image 128. No focal lung consolidations to suggest pneumonia. IMPRESSION: 1. No evidence for pulmonary embolus. 2. Prominent mediastinal and bilateral hilar lymph nodes. These are of uncertain clinical significanc e. 3. A 3 mm indeterminate pulmonary nodule within the right upper lobe. Please refer to the chart below for recommended follow-up. Please refer to below summary of Fleischner criteria recommendations for follow-up of incidental CT n odules (Kvng Garcia, Guidelines for management of small pulmonary nodules detected on CT scans: A sta tement from the Fleischner Society, Radiology 237: [id number].) SOLID NODULES Solitary nodule size: <6 mm * Low risk patients: no follow-up needed * high risk patients: optional CT at 12 months Solitary nodule size: 6-8 mm * Low risk patients: follow-up at 6-12 months, then consider further follow-up at 18-24 months * high risk patients: initial follow-up CT at 6-12 months and then at 18-24 months if no change Solitary nodule size: >8 mm * either low or high risk patients - consider follow-up CT at 3 months, and/or CT-PET, and/or biopsy Multiple nodules size: <6 mm * Low risk patients: no routine follow-up * high risk patients: optional CT at 12 months Multiple nodules size: 6-8 mm * Low risk patients: follow-up at 3-6 months, then consider further follow-up at 18-24 months * high risk patients: follow-up at 3-6 months, then at 18-24 months if no change Multiple nodules size: >8 mm * Low risk patients: follow-up at 3-6 months, then consider further follow-up at 18-24 months * high risk patients: follow-up at 3-6 months, then at 18-24 months if no change Note: newly detected indeterminate nodule in persons 35 years of age or older. * Low risk patients: minimal or absent history of smoking and/or other known risk factors * high risk patients: history of smoking or of other known risk factors (e.g. first degree relative with lung cancer, or exposure to asbestos, radon, uranium) * if a nodule up to 8 mm is partly solid or is ground glass further follow-up is required after 24 m onths to exclude possible slow growing adenocarcinoma (OSVALDO) SUBSOLID NODULES Solitary pure ground-glass nodule * nodule size <6 mm - no CT follow-up required * nodule size >=6 mm - follow-up CT at 6-12 months, then every 2 years until 5 years Solitary part-solid nodule * nodule size <6 mm - no CT follow-up required * nodule size >=6 mm - follow-up CT at 3-6 months. If unchanged, and solid component remains <6 mm, then annual follow-up for 5 years Multiple subsolid nodules * nodule size <6 mm - follow-up CT at 3-6 months, consider further follow-up at 2 and 4 years if sta ble * nodule size >=6 mm - follow-up CT at 3-6 months, subsequent management based on the most suspiciou s nodule(s) ACT 112: Positive. There are findings on this exam that require communication between the performing entity and the patient following Patient Test Result Information Act ([place] Act 112) guidelines. Electronically signed by: Jaxon Brizuela M.D. 07/03/2020 7:38 AM
[2020-07-03] MEDS ORDERED: ROSUVASTATIN CALCIUM 20 MG TAB PO SCH (09:00)
[2020-07-03] MEDS: INSULIN ASPART 100 UNITS/ML 3 ML PEN SC SCH ×2 (09:24→12:45)
[2020-07-03] MEDS ORDERED: METOPROLOL TARTRATE 1 MG/ML VIAL IV ONE (09:50)
[2020-07-03] MEDS ORDERED: ATROPINE SULFATE 0.1 MG/ML 10ML SYR IV ONE (09:50)
[2020-07-03] MEDS ORDERED: DOBUTamine HCL 12.5 MG/ML 20 ML VIAL IV ONE (09:51)
--- NOTE | 2020-07-03 10:33 | Cardiology Consultation ---
Date of Consultation July 03, 2020 Assessment & Plan (1) Chest pain: (2) CAD (coronary artery disease): (3) DM type 2 (diabetes mellitus, type 2): (4) Dyslipidemia: Dobutamine stress echocardiogram was nonischemic so I do not see any cardiac component to her chest discomfort. No medication changes to be made. okay to discharge to home. Follow-up as scheduled as an outpatient. History of Present Illness Reason for Consultation: chest pain Requesting Physician: Dr. Yang Attending Physician: Elias Boles MD History of Present Illness It was my pleasure to see Mrs. Davis in consultation today E 2020. she is a very pleasant 70-year-old woman who normally follows with Dr. Aguero of our Cardiology practice. She was seen by him in routine follow-up today doing well that time but later developed chest discomfort. She described as a pain in her chest similar to her previous anginal equivalent. She states that lasted about 45 minutes and deviating factors. She also denies any associated symptoms. Otherwise, she states that her normal state of health lately and feeling well. She has been compliant with all her meds. Allergies Allergy/AdvReac Type Severity Reaction Status Date / Time adhesive Allergy Mild ITCHY Verified 07/02/20 18:52 latex Allergy Mild LOCALIZED Verified 07/02/20 18:52 RASH Home Medications Medication Instructions Recorded Confirmed Type Jardiance 10 mg PO DAILY 07/02/20 07/02/20 History aspirin 81 mg PO HS 07/02/20 07/02/20 History citalopram 30 mg PO HS 07/02/20 07/02/20 History ergocalciferol (vitamin D2) 1,250 mcg PO WK 07/02/20 07/02/20 History [Vitamin D2] levothyroxine 88 mcg PO QAM 07/02/20 07/02/20 History metoprolol tartrate 12.5 mg PO Q12H 07/02/20 07/02/20 History omeprazole 20 mg PO DAILY PRN 07/02/20 07/02/20 History rosuvastatin 40 mg PO DAILY 07/02/20 07/02/20 History isosorbide mononitrate 30 mg PO QAM #30 tab 07/03/20 Rx Patient History Social History Smoking Status: Never smoker Second Hand Exposure: No; Do You Dip or Chew Tobacco: No; Hx Alcohol Use: No Hx Substance Use: No Preferred Language: Spanish Communication Ability: Effective Director Pharmacovigilance Required: No Beliefs That Will Affect Care: Roman Catholic marital status: Current Living Situation: Spouse Other Information That Helps Us Care for You: No Feels Safe at Home: Yes Safety Concerns: Feels Safe At This Time Assistive Devices: None Review of Systems Review of Systems: All systems reviewed & are unremarkable except as noted in HPI & below Physical Exam Physical Exam: Physical Exam: General: Awake, alert and oriented x 3. No acute distress. HEENT: Normocephalic, atraumatic. Pupils equal, round and reactive to light and accommodation. Extraocular muscles are intact. Anicteric sclera. Moist mucous membranes. Neck: No JVD. No bruit. Cardiovascular: Regular. No S-4. Normal S-1 and S-2. No S-3. No murmurs, rubs or gallops. Pulmonary: Clear to auscultation bilaterally. No rales, rhonchi, or wheezing. Abdomen: Bowel sounds x 4, soft. No rebound, guarding or tenderness. No organomegaly. Extremities: No clubbing, cyanosis or edema. +2 pedal pulses bilaterally. Skin: Warm and dry. Results & Data ([facility]) Vital Signs (Past 12 Hours) Vital Signs Temp Pulse Pulse Resp BP Pulse Ox 07/03/20 09:00 72 07/03/20 07:27 36.7 C 60 16 127/68 92 07/03/20 02:54 36.7 C 61 16 117/76 96 07/03/20 01:43 62 07/03/20 00:40 57 L 16 134/79 98 07/02/20 23:08 36.6 C 53 L 18 132/90 97
[2020-07-03] MEDS ORDERED: ISOSORBIDE MONO EXTENDED REL 30 MG TABCR PO SCH (11:00)
--- NOTE | 2020-07-03 12:08 | Hospitalist Progress Note ---
Date of Service July 03, 2020 Assessment & Plan (1) Chest pain: History of CAD with LAD stent No more chest pain since admission Serial troponins and EKG remain unremarkable Echo of the heart showednormal LV chamber size with EF of 55 to 60%, no segmental wall motion abnormalities, grade 1 diastolic dysfunction, aortic valve sclerosis mild without aortic stenosis Appreciate cardiology input and recommendation Status post negative stress test She will be discharged home this afternoon (2) CAD (coronary artery disease): (3) DM type 2 (diabetes mellitus, type 2): As above new home medications Blood sugar remains stable in the hospital (4) Dyslipidemia: Continue statin (5) Hypothyroidism: Continue supplement DVT prophylaxis-SCDs and increase ambulation CODE STATUS-full Disposition Discharged home this afternoon Admission and Anticipated Discharge Date Admission Date: July 02, 2020 Subjective 07/03/2020 The patient was seen and examined in medical telemetry unit She has history of CAD status post stent to LAD was admitted yesterday with chest pain She denies any more chest pain since admission and remains hemodynamically stable She is a status post negative stress echo She denies any other significant symptoms Review of Systems Review of Systems: All systems reviewed and are unremarkable except as noted below Respiratory: no dyspnea on exertion Cardiovascular: no chest pain and no palpitations Physical Exam Physical Exam: Lying in bed comfortably Constitutional: average body habitus; not ill appearing Eyes: PERRL, conjunctivae normal, anicteric sclerae ENMT: external ear and nose normal, oropharynx normal Neck: trachea midline, no thyromegaly Respiratory: no respiratory distress Auscultation: lungs clear to auscultation bilaterally Cardiovascular: Rate/Rhythm: regular rate and regular rhythm Heart Sounds: no murmur Extremities: no edema Gastrointestinal (Abdomen): Inspection/Auscultation: normal bowel sounds; abdomen not distended Percussion/Palpation: abdomen soft; abdomen nontender Musculoskeletal: No acute arthritis in any joint Neurologic: Alert, awake and oriented x3. No focal sensory and/or motor deficit appreciated Psychiatric: A+Ox3, euthymic affect Lymphatic: no cervical or axillary lymphadenopathy Results & Data Results & Data ([facility]) Vital Signs (Past 12 Hours) Vital Signs Temp Pulse Pulse Resp BP Pulse Ox 07/03/20 11:23 36.7 C 54 L 16 119/73 96 07/03/20 09:00 72 07/03/20 07:27 36.7 C 60 16 127/68 92 07/03/20 02:54 36.7 C 61 16 117/76 96 07/03/20 01:43 62 07/03/20 00:40 57 L 16 134/79 98 Laboratory Results Short CBC 07/02/20 07/03/20 Range/Units 18:15 06:04 WBC 9.79 10.72 (4.8-10.8) K/uL Hgb 16.2 H 15.4 (12.0-16.0) g/dL Hct 48.4 H 45.2 (37-47) % Plt Count 572 H 495 H (130-400) K/uL BMP 07/02/20 07/03/20 18:15 06:04 Sodium 138 139 Potassium 3.8 3.7 Chloride 105 110 H Carbon Dioxide 26 23 BUN 14 13 Creatinine 0.75 0.59 L Glucose 127 H 107 H Calcium 9.6 8.7 Cardiac Enzymes 07/02/20 07/02/20 07/03/20 Range/Units 18:15 23:33 06:04 Troponin I < 0.015 < 0.015 < 0.015 (0-0.045) ng/ml Liver Function 07/02/20 Range/Units 18:15 Total Bilirubin 0.5 (0.2-1) mg/dl AST 14 L (15-37) U/L ALT 26 (12-78) U/L Alkaline Phosphatase 102 (45-117) U/L Albumin 3.8 (3.4-5.0) gm/dl Medications Administered Current Inpatient Medications Acetaminophen (Acetaminophen 325 Mg Tab) 650 mg PO Q4H PRN PRN Reason: Pain or Fever Stop: 08/01/20 23:00 Aspirin (Aspirin 81 Mg Ectab) 81 mg PO HS FRANNY Stop: 08/02/20 20:59 Citalopram Hydrobromide (Citalopram 20 Mg Tab) 30 mg PO HS FRANNY Stop: 08/02/20 20:59 Dextrose (Dextrose 50% 50 Ml Syringe) 25 - 50 ml IV UD PRN; Protocol PRN Reason: Hypoglycemia Protocol Stop: 08/01/20 23:14 Ergocalciferol (Ergocalciferol 50,000 Units 1250 Mcg Cap) 50,000 units PO Mcgrath@0900 FRANNY Stop: 08/04/20 08:59 Glucagon (Glucagon For Inj 1 Mg Vial) 1 mg IM UD PRN; Protocol PRN Reason: Hypoglycemia Protocol Stop: 08/01/20 23:14 Glucose (Glucose 40% Gel 15 Gm Tube) 15 - 30 gm PO UD PRN; Protocol PRN Reason: Hypoglycemia Protocol Stop: 08/01/20 23:14 Glucose (Glucose 10 Tabs/Tube) 4 - 8 tabs PO UD PRN; Protocol PRN Reason: Hypoglycemia Protocol Stop: 08/01/20 23:14 Insulin Aspart (Insulin Aspart 100 Units/Ml 3 Ml Pen) 0 units SC ACHS [facility] Stop: 08/02/20 07:29 Last Admin: 07/03/20 09:24 Dose: Not Given Documented by: Isosorbide Mononitrate (Isosorbide Carter Extended Rel 30 Mg Tabcr) 30 mg PO QAM [facility] Stop: 08/02/20 10:59 Last Admin: 07/03/20 11:30 Dose: 30 mg Documented by: Levothyroxine Sodium (Levothyroxine Sodium 88 Mcg Tablet) 88 mcg PO DAILYBB [facility] Stop: 08/02/20 06:29 Last Admin: 07/03/20 05:54 Dose: 88 mcg Documented by: Metoprolol Tartrate (Metoprolol Tartrate 25 Mg Tab) 12.5 mg PO Q12 [facility] Stop: 08/01/20 23:00 Last Admin: 07/03/20 09:25 Dose: Not Given Documented by: Miscellaneous (Carbohydrates For Hypoglycemia ) 15 - 30 gm PO UD PRN PRN Reason: Hypoglycemia Treatment Stop: 08/01/20 23:14 Nitroglycerin (Nitroglycerin Sl 0.4 Mg/Tab Tab) 0.4 mg SL UD PRN PRN Reason: Chest Pain Stop: 08/01/20 23:00 Pantoprazole Sodium (Pantoprazole 40 Mg Tab) 40 mg PO DAILY PRN PRN Reason: HEARTBURN/INDIGESTION Stop: 08/01/20 23:12 Rosuvastatin Calcium (Rosuvastatin Calcium 20 Mg Tab) 40 mg PO DAILY [facility] Stop: 08/02/20 08:59 Last Admin: 07/03/20 09:25 Dose: Not Given Documented by:
--- NOTE | 2020-07-03 15:40 | Electrocardiogram Report ---
Test Reason : Blood Pressure : / mmHG Vent. Rate : 059 BPM Atrial Rate : 059 BPM P-R Int : 186 ms QRS Dur : 072 ms QT Int : 450 ms P-R-T Axes : 049 -06 041 degrees QTc Int : 445 ms Sinus bradycardia Otherwise normal ECG When compared with ECG of 02-JUL-2020 17:16, (unconfirmed) No significant change was found Confirmed by Je Graf ([id number]) on 07/03/2020 3:40:22 PM Referred By: REFERRED SELF Confirmed By:Je Graf
[2020-07-03] MEDS ORDERED: CITALOPRAM 20 MG TAB PO SCH (21:00)
[2020-07-03] MEDS ORDERED: ASPIRIN 81 MG ECTAB PO SCH (21:00)
--- NOTE | 2020-07-04 08:28 | Discharge Summary ---
Date of Service July 04, 2020 Admission HPI Per Admitting Provider DICTATED BY: Neil Yang MD DATE OF ADMISSION: 07/02/2020 CHIEF COMPLAINT: Chest pain. HISTORY OF PRESENT ILLNESS: A 70-year-old female with past medical history significant for type 2 diabetes, hypothyroidism, hyperlipidemia, history of CAD, status post stent to LAD, bilateral carotid artery stenosis, vitamin D deficiency, senile osteoporosis, who presents with chest pain. She was riding in the car when she noticed pain in central chest and below the right breast, discomfort like feeling, it lasted for 45 minutes. By the time, she came to the ER, the patient resolved. Pain was similar to her SC and in the past. Currently resting comfortable and hemodynamically stable. Currently, no chest pain, no shortness of breath, no nausea, no dizziness, no headache, no blurred vision, no earache, no runny nose, no sore throat, no cough, no fevers, no abdominal pain. Normal bowel and bladder movements. Otherwise, she was ambulating fine before this episode. Admission Exam Per Admitting Provider GENERAL: The patient is of moderate built, not in acute distress. VITAL SIGNS: Temperature 36.7, pulse 61, respiratory rate 16, blood pressure 117/76, oxygen 96% on room air. HEENT: Pupils equal, round, reactive to light. Oral mucosa moist. NECK: No JVD. No neck masses. CARDIOVASCULAR: S1, S2 heard, regular rate and rhythm. No murmur, no gallop. RESPIRATORY SYSTEM: Normal AP diameter. No accessory muscle use. No wheezing, no crackles. ABDOMEN: Soft. Bowel sounds present, nontender. No distention. CENTRAL NERVOUS SYSTEM: Cranial nerves II-XII grossly intact. Nonfocal. EXTREMITIES: No edema, no erythema. Principal Diagnosis Chest pain, negative Dobutamine stress test, CAD, type 2 diabetes, hyperlipidemia, hypothyroidism Discharge Exam Constitutional average body habitus; not ill appearing Eyes PERRL, conjunctivae normal, anicteric sclerae ENMT external ear and nose normal, oropharynx normal Neck trachea midline, no thyromegaly Respiratory no respiratory distress Auscultation: lungs clear to auscultation bilaterally Cardiovascular Rate/Rhythm: regular rate and regular rhythm Heart Sounds: no murmur Extremities: no edema Gastrointestinal (Abdomen) Inspection/Auscultation: normal bowel sounds; abdomen not distended Percussion/Palpation: abdomen soft; abdomen nontender Psychiatric A+Ox3, euthymic affect Lymphatic no cervical or axillary lymphadenopathy Discharge Data Allergies Allergy/AdvReac Type Severity Reaction Status Date / Time adhesive Allergy Mild ITCHY Verified 07/02/20 18:52 latex Allergy Mild LOCALIZED Verified 07/02/20 18:52 RASH Consultations 07/02/20 20:27 ED Decision to Admit Stat 07/03/20 08:00 Consult Cardiology Routine Ordered Studies 07/02/20 21:01 CT angio chest PE protocol Urgent Hospital Course (1) Chest pain: History of CAD with LAD stent No more chest pain since admission Serial troponins and EKG remain unremarkable Echo of the heart showednormal LV chamber size with EF of 55 to 60%, no segmental wall motion abnormalities, grade 1 diastolic dysfunction, aortic valve sclerosis mild without aortic stenosis Appreciate cardiology input and recommendation Status post negative Dobutamine stress test She will be discharged home this afternoon (2) CAD (coronary artery disease): (3) DM type 2 (diabetes mellitus, type 2): As above new home medications Blood sugar remains stable in the hospital (4) Dyslipidemia: Continue statin (5) Hypothyroidism: Continue supplement DVT prophylaxis-SCDs and increase ambulation CODE STATUS-full Disposition Discharged home this afternoon Total Time Total Time Spent Total Time Spent (In Minutes): 35 minutes Total Time Includes: Examination of the Patient, Discharge Planning, Medication Reconciliation and Communication With Other Providers Discharge Plan Discharge Items Patient Disposition: Home - Self-Care Reason For Visit: CHEST PAIN Discharge Diagnosis: Chest pain, negative Dobutamine stress test, CAD, type 2 diabetes, hyperlipidemia, hypothyroidism Condition on Discharge: Good Activity: Resume your previous activity Non-emergency contact: Primary Care Provider Call non-emergency contact if: you have any medication questions and your sympt oms worsen Follow-up/Referrals: Rosita Diaz PA-C [Primary Care Provider] - (Date & Time 07/10/2020 9:00 AM Provider Allie Bull MD [facility] ) Diet: Carb Consistent or DM2 and Heart Healthy Addtl Attending Provider Instructions: Please keep follow-up appointments with your primary care physician and chemistry laboratory technician Your new medication is going to be isosorbide mononitrate once a day Please take your medications regularly Pending Studies at Discharge: No Stand-Alone Forms: [facility], Smoking Cessation Medications and DC Order Prescriptions: New isosorbide mononitrate 30 mg Tablet Extended Release 24 Hr 30 mg PO QAM Qty: 30 RF: 0 Continued aspirin 81 mg Tablet,Delayed Release (Dr/Ec) 81 mg PO HS RF: 0 levothyroxine 88 mcg tablet 88 mcg PO QAM RF: 0 citalopram 20 mg tablet 30 mg PO HS RF: 0 omeprazole 20 mg Capsule,Delayed Release(Dr/Ec) 20 mg PO DAILY PRN (Reason: HEARTBURN/INDIGESTION) RF: 0 ergocalciferol (vitamin D2) [Vitamin D2] 1,250 mcg (50,000 unit) Capsule 1,250 mcg PO WK RF: 0 rosuvastatin 40 mg tablet 40 mg PO DAILY RF: 0 metoprolol tartrate 25 mg tablet 12.5 mg PO Q12H RF: 0 Jardiance 10 mg tablet 10 mg PO DAILY RF: 0 Discharge Orders: Discharge Order (Routine); Ordered 07/03/20 Ordered By: Elias Boles Admission Data Admit Date/Time: 07/02/20 21:01 Attending Provider: Elias Boles Admit Provider: Neil Yang Primary Care Provider: Rosita Diaz Other Providers: Neil Yang ; Jacob Ríos ; Donte Grullon ; Donald Shepherd ; Sohan Aguero ; eBn Costello ; Ben Lui ; Belén King ; Francisca Yu ; Leelee Viveros ; Tad Tanner Other Interventions: Discharge Summary Assessment (RN) Last Done: 07/03/20 13:40
[2020-07-05] MEDS ORDERED: ERGOCALCIFEROL 50,000 UNITS 1250 MCG CAP PO SCH (09:00)
== END 2020-07-03 14:30 | disposition home or self-care (01) ==
LOC: 2N 17:04 → ED 17:04 → 2N 22:06
DX: E11.9 Type 2 diabetes mellitus without complications; E78.5 Hyperlipidemia, unspecified; I25.10 Atherosclerotic heart disease of native coronary artery without angina pectoris; Z88.8 Allergy status to other drugs, medicaments and biological substances; R07.9 Chest pain, unspecified; Z95.5 Presence of coronary angioplasty implant and graft; Z91.040 Latex allergy status; I65.23 Occlusion and stenosis of bilateral carotid arteries; Z79.899 Other long term (current) drug therapy; Z79.82 Long term (current) use of aspirin

== ENCOUNTER 2020-08-07 08:15 | Inpatient (IN) ==
[2020-08-07 08:58] LABS: Basophils # (auto) 0.02 K/uL (0-0.2); Basophils % (auto) 0.3 %; Eosinophils % (auto) 3.2 %; Hematocrit (blood only) 47.9 % (37-47); Hemoglobin 16.1 g/dL (12.0-16.0); Immature Granulocytes # (auto) 0.01 K/uL (0.00-0.02); Immature Granulocytes % (auto) 0.2 %; Lymphocytes # (auto) 0.99 K/uL (1.2-3.4); Lymphocytes % (auto) 15.9 %; Mean Corpuscular Hemoglobin 30.7 pg (25-34); Mean Corpuscular Hgb Conc 33.6 g/dL (32-36); Mean Corpuscular Volume 91.4 fL (80-100); Mean Platelet Volume 10.3 fL (7.4-10.4); Monocytes # (auto) 1.29 K/uL (0.11-0.59); Monocytes % (auto) 20.7 %; Neutrophils # (auto) 3.72 K/uL (1.4-6.5); Neutrophils % (auto) 59.7 %; Platelet Count 404 K/uL (130-400); RDW Coefficient of Variation 13.8 % (11.5-14.5); RDW Standard Deviation 46.7 fL (36.4-46.3); Red Blood Count 5.24 M/uL (4.2-5.4); White Blood Count 6.23 K/uL (4.8-10.8)
--- NOTE | 2020-08-07 09:03 | Emergency Department Note ---
Impression & Plan Chest pain, CAD (coronary artery disease), COVID ED Provider Note NAME: GALILEO LAWSON AGE: 70 SEX: F : 1950 ARRIVES VIA: Walk-In INFORMANT: Patient ED PROVIDER(S): Jarrett Sexton DO CHIEF COMPLAINT: Chest pain HPI: Patient is a 70-year-old female with a past medical history of an PR that presents to the ER for left-sided chest pain which radiates through to her back and she has a tightness going up to her jaw. She denies any shortness of breath. She notes this feels like her previous PR 2 to 3 years ago. Denies any belly pain, nausea, or vomiting. She admits to being diaphoretic when this occurred. It lasted for about an hour and has been off and on this morning since 4 AM. Denies any dysuria, urgency, or frequency. She is known and foll ows with [facility] cardiology group. She took 3 aspirin prior to arrival and the pain resolved. When she had this 3 weeks ago she was admitted and observed and had a stress test and was treated for esophageal issues per the patient. ROS: See above HPI for pertinent positives & negatives. A total of 10 systems reviewed and were otherwise negative. PAST MEDICAL HISTORY:See Below PAST SURGICAL HISTORY:See Below FAMILY HISTORY:See Below SOCIAL HISTORY:See Below HOME MEDICATIONS:See Below ALLERGIES:See Below VITALS:See Below PHYSICAL EXAMINATION: GENERAL: Sitting up in bed, alert, well appearing, well nourished, no distress, non-toxic EYE EXAM: normal conjunctiva. OROPHARYNX: no exudate, no erythema, lips, buccal mucosa, and tongue normal and mucous membranes are moist NECK: supple, no nuchal rigidity, no adenopathy, non-tender LUNGS: Clear to auscultation. Normal chest wall mechanics HEART: no murmurs, S1 normal and S2 normal ABDOMEN: abdomen soft, non-tender, normo-active bowel sounds, no masses, no rebound or guarding. UPPER EXTREMITIES: upper extremities are grossly normal. LOWER EXTREMITIES: No pitting edema. Calves are equal bilateral NEURO EXAM: Normal sensorium, cranial nerves II-XII grossly intact, normal speech, no gross weakness of arms, no gross weakness of legs. MEDICAL DECISION MAKING: Patient is a 68-year-old female with a past medical history of PR who presents the ER for chest pain which feels like previous PR. IV was established blood work was obtained. She is pain-free upon arrival. Labs show no significant leukocytosis or anemia. BMP with LFTs bilirubin and troponin was negative. Covid was ordered and was positive. Patient has no respiratory complaints. Troponin was negative and she was chest pain-free. D-dimer was elevated at 1100. D-dimer was positive at the end of June as well and she had a CTA following that which was negative. Dimer at that point was in the 500s. As this patient will likely be cath after discussion with Dr. Donald Shepherd deferred the CT and ordered duplex of lower extremities as I favor PE is very unlikely. Patient was updated bedside and discussed with hospitalist for further evaluation. Patient was taken to the [facility] prior to duplex of lower extremities. Triage Nursing notes reviewed. Limited review of prior medical records performed Vital Signs: reviewed and remarkable for no significant abnormalities Differential diagnosis: Differential diagnoses includes but is not limited to acute coronary syndrome, myocardial infarction, pericarditis, pulmonary embolus, aortic dissection, pneumonia, pneumothorax, musculoskeletal, shingles, esophageal. ER treatment provided: See below Diagnostics interpreted by me: ECG: Sinus rhythm rate of 61 Normal axis No PVCs QTC 426 Cardiac Monitoring: An order was placed for continuous cardiac monitoring. The monitor shows a rate of 60 with sinus rhythm. Laboratory studies: As stated above and show below. Imaging studies: Portable AP upright 1 view the chest was unremarkable Consultation(s): Discussed with Dr. Donald Shepherd who agreed to evaluate the patient Discussed with hospitalist for further evaluation Procedures: none Critical Care: None Past Med/Surg History Social History Smoking Status: Former smoker Tobacco Type: Cigarettes Second Hand Exposure: No; Hx Alcohol Use: No Hx Substance Use: No Preferred Language: Taiwanese Communication Ability: Effective Lift Electrician Required: No Beliefs That Will Affect Care: Denominational marital status: Current Living Situation: Spouse Feels Safe at Home: Yes Assistive Devices: None Allergies Allergies Allergy/AdvReac Type Severity Reaction Status Date / Time adhesive Allergy Mild ITCHY Verified 08/07/20 09:43 latex Allergy Mild LOCALIZED Verified 08/07/20 09:43 RASH lisinopril Allergy Swelling Verified 08/07/20 11:19 of Lip/Tongue/Throat Home Meds Home Medications Medication Instructions Recorded Confirmed Jardiance 10 mg PO QAM 07/02/20 08/07/20 aspirin 81 mg PO HS 07/02/20 08/07/20 citalopram 30 mg PO HS 07/02/20 08/07/20 ergocalciferol (vitamin D2) 1,250 mcg PO WK 07/02/20 08/07/20 [Vitamin D2] levothyroxine 88 mcg PO DAILYBB 07/02/20 08/07/20 metoprolol tartrate 12.5 mg PO Q12H 07/02/20 08/07/20 rosuvastatin 40 mg PO QAM 07/02/20 08/07/20 Results & Data (ED) Vital Signs Vital Signs - 24 hr 08/07/20 08:24 08/07/20 09:30 08/07/20 10:03 Temperature 36.3 C L Temperature Source Oral Pulse Rate 68 Pulse Rate [Finger] 63 Pulse Rate from SpO2 Sensor Pulse Rhythm [Finger] Pulse Strength [Finger] Respiratory Rate 20 18 Respiratory Effort / Characteristics Non-Labored Spontaneous Respiratory Depth Normal Respiratory Pattern Regular Blood Pressure 144/81 H Blood Pressure [Left Arm] 123/81 Blood Pressure Mean 102 Blood Pressure Mean [Left Arm] 95 Pulse Oximetry 97 98 98 Oxygen Delivery Method Room Air Room Air Room Air Sepsis Recent Fever Within 48 Hours No Sepsis New/Unexplained Change in Mental Status N/A Sepsis Action Taken by Nursing No Action Required 08/07/20 11:00 08/07/20 13:50 Temperature Temperature Source Pulse Rate 61 Pulse Rate [Finger] 61 Pulse Rate from SpO2 Sensor 61 Pulse Rhythm [Finger] Regular Pulse Strength [Finger] Normal Respiratory Rate 17 16 Respiratory Effort / Characteristics Non-Labored Respiratory Depth Normal Respiratory Pattern Regular Blood Pressure 182/111 H Blood Pressure [Left Arm] 156/72 H Blood Pressure Mean 134 Blood Pressure Mean [Left Arm] 100 Pulse Oximetry 99 98 Oxygen Delivery Method Room Air Sepsis Recent Fever Within 48 Hours Sepsis New/Unexplained Change in Mental Status Sepsis Action Taken by Nursing Laboratory Data Result diagrams: 08/07/20 08:50 08/07/20 08:50 Lab Results 08/07/20 08/07/20 08/07/20 Range/Units 08:50 08:50 08:50 WBC 6.23 (4.8-10.8) K/uL RBC 5.24 (4.2-5.4) M/uL Hgb 16.1 H (12.0-16.0) g/dL Hct 47.9 H (37-47) % MCV 91.4 (80-100) fL MCH 30.7 (25-34) pg MCHC 33.6 (32-36) g/dL RDW Std Deviation 46.7 H (36.4-46.3) fL RDW Coeff of Freya 13.8 (11.5-14.5) % Plt Count 404 H (130-400) K/uL MPV 10.3 (7.4-10.4) fL Immature Gran % (Auto) 0.2 % Neut % (Auto) 59.7 % Lymph % (Auto) 15.9 % [place] % (Auto) 20.7 % Eos % (Auto) 3.2 % Baso % (Auto) 0.3 % Neut # (Auto) 3.72 (1.4-6.5) K/uL Lymph # (Auto) 0.99 L (1.2-3.4) K/uL [place] # (Auto) 1.29 H (0.11-0.59) K/uL Eos # (Auto) 0.20 (0-0.5) K/uL Baso # (Auto) 0.02 (0-0.2) K/uL Immature Gran # (Auto) 0.01 (0.00-0.02) K/uL APTT 27.5 (21.0-31.0) Seconds PTT Ratio 1.0 Activ Coag Time Kaolin (94-140) SECONDS D-Dimer (0-500) ug/L FEU Sodium 135 L (136-145) mmol/L Potassium 3.8 (3.5-5.1) mmol/L Chloride 105 (98-107) mmol/L Carbon Dioxide 25 (21-32) mmol/L Anion Gap 6.0 (3-11) BUN 15 (7-18) mg/dl Creatinine 0.74 (0.6-1.2) mg/dl Est Cr Clr Drug Dosing 53.9 ml/min Est GFR ( Amer) 93.8 ml/min Est GFR (Non-Af Amer) 80.9 ml/min BUN/Creatinine Ratio 20.6 H (10-20) Glucose 149 H (70-99) mg/dl Calcium 9.3 (8.5-10.1) mg/dl Total Bilirubin 0.5 (0.2-1) mg/dl AST 35 (15-37) U/L ALT 38 (12-78) U/L Alkaline Phosphatase 106 (45-117) U/L Troponin I < 0.015 (0-0.045) ng/ml Total Protein 8.4 H (6.4-8.2) gm/dl Albumin 3.9 (3.4-5.0) gm/dl Globulin 4.5 H (2.5-4.0) gm/dl Albumin/Globulin Ratio 0.9 (0.9-2) Lipase 176 (73-393) U/L COVID-19 Eval Order SARS-CoV-2 (PCR) (Negative) 08/07/20 08/07/20 08/07/20 Range/Units 10:01 10:20 10:20 WBC (4.8-10.8) K/uL RBC (4.2-5.4) M/uL Hgb (12.0-16.0) g/dL Hct (37-47) % MCV (80-100) fL MCH (25-34) pg MCHC (32-36) g/dL RDW Std Deviation (36.4-46.3) fL RDW Coeff of Freya (11.5-14.5) % Plt Count (130-400) K/uL MPV (7.4-10.4) fL Immature Gran % (Auto) % Neut % (Auto) % Lymph % (Auto) % [place] % (Auto) % Eos % (Auto) % Baso % (Auto) % Neut # (Auto) (1.4-6.5) K/uL Lymph # (Auto) (1.2-3.4) K/uL [place] # (Auto) (0.11-0.59) K/uL Eos # (Auto) (0-0.5) K/uL Baso # (Auto) (0-0.2) K/uL Immature Gran # (Auto) (0.00-0.02) K/uL APTT (21.0-31.0) Seconds PTT Ratio Activ Coag Time Kaolin (94-140) SECONDS D-Dimer 1150 H* (0-500) ug/L FEU Sodium (136-145) mmol/L Potassium (3.5-5.1) mmol/L Chloride (98-107) mmol/L Carbon Dioxide (21-32) mmol/L Anion Gap (3-11) BUN (7-18) mg/dl Creatinine (0.6-1.2) mg/dl Est Cr Clr Drug Dosing ml/min Est GFR ( Amer) ml/min Est GFR (Non-Af Amer) ml/min BUN/Creatinine Ratio (10-20) Glucose (70-99) mg/dl Calcium (8.5-10.1) mg/dl Total Bilirubin (0.2-1) mg/dl AST (15-37) U/L ALT (12-78) U/L Alkaline Phosphatase (45-117) U/L Troponin I (0-0.045) ng/ml Total Protein (6.4-8.2) gm/dl Albumin (3.4-5.0) gm/dl Globulin (2.5-4.0) gm/dl Albumin/Globulin Ratio (0.9-2) Lipase (73-393) U/L COVID-19 Eval Order Covid19 at [facility] SARS-CoV-2 (PCR) POSITIVE A* (Negative) 08/07/20 Range/Units 13:23 WBC (4.8-10.8) K/uL RBC (4.2-5.4) M/uL Hgb (12.0-16.0) g/dL Hct (37-47) % MCV (80-100) fL MCH (25-34) pg MCHC (32-36) g/dL RDW Std Deviation (36.4-46.3) fL RDW Coeff of Freya (11.5-14.5) % Plt Count (130-400) K/uL MPV (7.4-10.4) fL Immature Gran % (Auto) % Neut % (Auto) % Lymph % (Auto) % [place] % (Auto) % Eos % (Auto) % Baso % (Auto) % Neut # (Auto) (1.4-6.5) K/uL Lymph # (Auto) (1.2-3.4) K/uL [place] # (Auto) (0.11-0.59) K/uL Eos # (Auto) (0-0.5) K/uL Baso # (Auto) (0-0.2) K/uL Immature Gran # (Auto) (0.00-0.02) K/uL APTT (21.0-31.0) Seconds PTT Ratio Activ Coag Time Kaolin 296 H (94-140) SECONDS D-Dimer (0-500) ug/L FEU Sodium (136-145) mmol/L Potassium (3.5-5.1) mmol/L Chloride (98-107) mmol/L Carbon Dioxide (21-32) mmol/L Anion Gap (3-11) BUN (7-18) mg/dl Creatinine (0.6-1.2) mg/dl Est Cr Clr Drug Dosing ml/min Est GFR ( Amer) ml/min Est GFR (Non-Af Amer) ml/min BUN/Creatinine Ratio (10-20) Glucose (70-99) mg/dl Calcium (8.5-10.1) mg/dl Total Bilirubin (0.2-1) mg/dl AST (15-37) U/L ALT (12-78) U/L Alkaline Phosphatase (45-117) U/L Troponin I (0-0.045) ng/ml Total Protein (6.4-8.2) gm/dl Albumin (3.4-5.0) gm/dl Globulin (2.5-4.0) gm/dl Albumin/Globulin Ratio (0.9-2) Lipase (73-393) U/L COVID-19 Eval Order SARS-CoV-2 (PCR) (Negative) Administered Medications Discontinued Medications Fentanyl Citrate (Fentanyl Citrate 100 Mcg/2 Ml Vial) Confirm Administered Dose 100 mcg .ROUTE .STK-MED ONE Stop: 08/07/20 11:56 Last Increment: 08/07/20 13:30 Dose: 37.5 mcg Documented by: [id number] Midazolam HCl (Midazolam Hcl 1 Mg/Ml 2ml Vial) Confirm Administered Dose 2 mg .ROUTE .STK-MED ONE Stop: 08/07/20 11:56 Last Admin: 08/07/20 13:30 Dose: 2 mg Documented by: [id number] Imaging Data Radiologist's Impression: Chest X-Ray 08/07/20 08:43 XR chest 1V portable CLINICAL HISTORY: Chest Pain COMPARISON STUDY: Chest radiograph and chest CT July 02, 2020. FINDINGS: Lung volumes are normal. Lungs are clear. There is no pneumothorax or pleural effusion. Cardiac size is normal. Mediastinal contours are normal. There is no evidence for pulmonary edema. IMPRESSION: No acute cardiopulmonary findings. ACT 112: Negative or not required by law. Electronically signed by: Ariel Yao M.D. 08/07/2020 9:54 AM Venous Doppler Study 08/07/20 10:43 BILATERAL LOWER EXTREMITY VENOUS DOPPLER CLINICAL HISTORY: + dd with recent cta neg COMPARISON STUDY: No previous studies for comparison. TECHNIQUE: Sonography of the deep venous system of the bilateral lower extremities was performed. Compression and augmentation were evaluated. FINDINGS: The bilateral common femoral, superficial femoral and popliteal veins were compressible. Augmentation was normal. Flow was shown within the deep calf vessels. IMPRESSION: No evidence of deep venous thrombus within the bilateral lower extremities. ACT 112: Negative or not required by law. Electronically signed by: Ariel Yao M.D. 08/07/2020 11:38 AM Discharge Plan Visit Data Chief Complaint: Chest Pain Stated Complaint: CHEST PAIN COMES AND GOES ED Provider: Jarrett Sexton Discharge Problem: Chest pain, CAD (coronary artery disease), COVID Discharge Instructions Interventions: ED Discharge Assessment Last Done: 08/07/20 11:46 Discharge Problem: Chest pain Qualifiers: Chest pain type: unspecified Qualified Code(s): R07.9 - Chest pain, unspecified CAD (coronary artery disease) Qualifiers: Coronary Disease-Associated Artery/Lesion type: unspecified vessel or lesion type Three Affiliated vs. transplanted heart: unspecified whether chicken ranch or transplanted heart Associated angina: unspecified whether angina present Qualified Code(s): I25.10 - Atherosclerotic heart disease of [place] coronary artery without angina pectoris
[2020-08-07 09:08] LABS: Partial Thromboplastin Time 27.5 Seconds (21.0-31.0)
[2020-08-07 09:15] LABS: Alanine Aminotransferase 38 U/L (12-78); Albumin Level 3.9 gm/dl (3.4-5.0); Aspartate Aminotransferase 35 U/L (15-37); BUN Creatinine Ratio 20.6 (10-20); Blood Urea Nitrogen 15 mg/dl (7-18); Calcium 9.3 mg/dl (8.5-10.1); Carbon Dioxide 25 mmol/L (21-32); Chloride 105 mmol/L (98-107); Creatinine Clr Calc Pharmacy 53.9 ml/min; Est GFR (African American) 93.8 ml/min; Est GFR (Non-African American) 80.9 ml/min; Glucose 149 mg/dl (70-99); Lipase 176 U/L (73-393); Potassium 3.8 mmol/L (3.5-5.1); Sodium 135 mmol/L (136-145)
[2020-08-07 09:20] LABS: Albumin Globulin Ratio 0.9 (0.9-2); Alkaline Phosphatase 106 U/L (45-117); Bilirubin,Total 0.5 mg/dl (0.2-1); Globulin 4.5 gm/dl (2.5-4.0); Total Protein 8.4 gm/dl (6.4-8.2); Troponin I < 0.015 ng/ml (0-0.045)
--- NOTE | 2020-08-07 09:55 | XRay Report ---
XR chest 1V portable CLINICAL HISTORY: Chest Pain COMPARISON STUDY: Chest radiograph and chest CT July 02, 2020. FINDINGS: Lung volumes are normal. Lungs are clear. There is no pneumothorax or pleural effusion. Car diac size is normal. Mediastinal contours are normal. There is no evidence for pulmonary edema. IMPRESSION: No acute cardiopulmonary findings. ACT 112: Negative or not required by law. Electronically signed by: Ariel Yao M.D. 08/07/2020 9:54 AM
--- NOTE | 2020-08-07 10:22 | History & Physical Report ---
Date of Service August 07, 2020 Assessment & Plan (1) Chest pain: -Admit to PCU -Consult cardiology-discussed with Dr. Shepherd, plans for cardiac cath today, make n.p.o. now -Most recent Echo of the heart showednormal LV chamber size with EF of 55 to 60%, no segmental wall motion abnormalities, grade 1 diastolic dysfunction, aortic valve sclerosis mild without aortic stenosis - During last hospital stay underwent Dobutamine stress test and was negative - Initial troponin negative, trend - EKG without changes - COVID screening pending - D-dimer elevated at 1150 - follow doppler BLE bilaterally - NSS 125 ml/hr x 1 L with anticipation of getting contrast with cardiac cath, Cr. 0.74, BUN 15. (2) CAD (coronary artery disease): - Hx of RI in 2019, s/p stenting to LAD - Cont metoprolol tartrate 12.5 mg BID, give dose now as she missed this medica tion this morning, rosuvastatin. -Took 3 baby aspirin this morning, continue daily ASA 81 mg tomorrow -Await cardiac recommendations regarding DAPT (3) DM type 2 (diabetes mellitus, type 2): -Last A1c on 03/13/2020 = 7.9-holding Jardiance -ISS with Accu-Cheks AC at bedtime, currently n.p.o. in anticipation of cardiac cath (4) Dyslipidemia: -Continue rosuvastatin (5) Hypothyroidism: -Continue levothyroxine 88 mcg daily, took med this morning DVT PPx: - teds, scds CODE: Full code Dispo: From home, likely to remain in the hospital x 1-2 days (6) COVID: asymptomatic will monitor History of Present Illness Chief Complaint: Chest pain Primary Care Provider: Rosita Diaz PA-C This is a 70 yo F with PMHx of CAD, history of RI 3 years ago s/p stenting to the LAD, HTN, HLD, DM type II, osteopenia, hypothyroidism, history of breast cancer, who presents to the ER with acute onset of chest pain. She reports drinking coffee this morning and typically does not drink much coffee, felt increased substernal chest pain which lasted for approximately 1 hour on and off. Currently she is chest pain-free. She took 3 baby aspirin's this morning before coming to the ER. Patient does not have a prescription for nitroglycerin, and did not take any today. She denies any radiation of pain but did note increased sweating. Her daughter is present with her at bedside and supports the history. She was previously admitted from 07/03 through 07/04 this spring for similar presentation with chest pain. At that time she underwent a dobutamine stress test which was found to be negative. Today, her initial troponin is negative, EKG is without any acute ST wave inversions or changes, cardiology was consulted and plans to perform cardiac cath today, prior to the holiday weekend. 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 She is a full code. Patient would not want to be maintained on life support. Her and daughter would make decisions for her if she was unable to. Patient reports strong family history of CAD, HTN. She denies any personal history of previous stroke, arrhythmia but admits to previous heart attack 3 years ago. Allergies Allergy/AdvReac Type Severity Reaction Status Date / Time adhesive Allergy Mild ITCHY Verified 08/07/20 09:43 latex Allergy Mild LOCALIZED Verified 08/07/20 09:43 RASH lisinopril Allergy Swelling Verified 08/07/20 11:19 of Lip/Tongue/Throat Home Medications Medication Instructions Recorded Confirmed Type Jardiance 10 mg PO QAM 07/02/20 08/07/20 History aspirin 81 mg PO HS 07/02/20 08/07/20 History citalopram 30 mg PO HS 07/02/20 08/07/20 History ergocalciferol (vitamin D2) 1,250 mcg PO WK 07/02/20 08/07/20 History [Vitamin D2] levothyroxine 88 mcg PO DAILYBB 07/02/20 08/07/20 History metoprolol tartrate 12.5 mg PO Q12H 07/02/20 08/07/20 History rosuvastatin 40 mg PO QAM 07/02/20 08/07/20 History Past Med/Surg History Social History Smoking Status: Former smoker Tobacco Type: Cigarettes Second Hand Exposure: No; Hx Alcohol Use: No Hx Substance Use: No Preferred Language: Malawian Communication Ability: Effective Protein Scientist Required: No Beliefs That Will Affect Care: None marital status: Current Living Situation: Spouse Feels Safe at Home: Yes Safety Concerns: Feels Safe At This Time Assistive Devices: None Review of Systems Review of Systems: Constitutional: No fever, sweats or chills Eyes: No diplopia, no worsening or blurred vision ENT: normal hearing, no trouble swallowing Respiratory: No cough, sputum, dyspnea at rest or on exertion Cardiovascular: As per HPI, currently no chest pain, tightness or palpitations Abdomen: No pain, nausea, vomiting, diarrhea or constipation Musculoskeletal: No joint pain, calf pain, swelling Neurologic: No weakness, numbness/tingling, or balance problems Psychiatric: No anxiety or depression Skin: No rash or itch Physical Exam Physical Exam: General: awake, alert, no apparent distress Head: Normocephalic, atraumatic ENT: PERRL, EOMI, no pharyngeal exudate, mucous membranes moist, no carotid bruits Chest: Clear to auscultation, on room air, no adventitious breath sounds Cardiac: Regular rate and rhythm, no murmur, no JVD, normal peripheral pulses, good capillary refill Abdominal: NABS x 4 quadrants, soft, nondistended, nontender to palpation, no rebound or guarding Extremities: Normal inspection, no peripheral edema or erythema, calfs nontender to palpation Psych: Normal mood and affect Neuro: AAO x 3, strength intact bilaterally and rated 5/5, no motor deficits, speech is clear, no peripheral sensory deficits Results & Data Results & Data ([facility]) Vital Signs (Past 12 Hours) Vital Signs Temp Pulse Pulse Resp BP BP Pulse Ox 08/07/20 10:03 63 18 123/81 98 08/07/20 09:30 98 08/07/20 08:24 36.3 C L 68 20 144/81 H 97 Diagnostic Findings Chest X-Ray 08/07/20 08:43 XR chest 1V portable CLINICAL HISTORY: Chest Pain COMPARISON STUDY: Chest radiograph and chest CT July 02, 2020. FINDINGS: Lung volumes are normal. Lungs are clear. There is no pneumothorax or pleural effusion. Cardiac size is normal. Mediastinal contours are normal. There is no evidence for pulmonary edema. IMPRESSION: No acute cardiopulmonary findings. ACT 112: Negative or not required by law. Electronically signed by: Ariel Yao M.D. 08/07/2020 9:54 AM ECG Rhythm: normal sinus Comparison ECG Date: from (07/03/20) Change: no significant change Code Status & VTE Plan Code Status Full code - discussed with the patient at bedside Supervising Physician Co-Signing Physician Notes Care coordinated with Alisha Escalona PA-C. Agree with above note. Patient seen and examined. Please refer to her notes for full details. Vital signs reviewed. Physical exam: General exam: Alert and oriented. Not in acute distress. CVS: S1 and S2 heard, regular rate and rhythm, no murmurs. RS: Clear to auscultation, no wheezing or crackles. ABD: Soft, bowel sounds present, nontender, no distention. REEL MAN: Nonfocal. EXT: No edema, no erythema left wrist cath site ok Labs: Reviewed. Assessment and plan: 70F with hx of cad s/p lad stent, dm, hyperlipidemia presents with chest pain. She was here recently with chest pain and dobutamine stress test was negative at that time. Today Cardiology wanted to do cardiac cath . [facility] s/p cardiac cath and found to have 805 lesion in circumflex and s/p stent placement. Currently chest pain free. After cath patient developed some hives and itching. received benadryl and feeling fine now. No sob. Afebrile. No cough or sob. Covi screening came back positive. Patient is not vaccinated. Denies any exposures. No symptoms. Chest pain hx of cad s/p cath and stent to circumflex aspirin,, plavix, statin and b guillermina post cath care as per cardiology allergy reaction post cath s/p benadryl seems resolved will monitor. Covid incidental finding asymptomatic saturating fine will monitor. Other diagnosis and plan of care as per Alisha Escalona PA-C. Neil mayes MD.
[2020-08-07 10:40] LABS: D Dimer 1150 ug/L FEU (0-500)
--- NOTE | 2020-08-07 11:00 | Cardiology Consultation ---
Date of Consultation August 07, 2020 Assessment & Plan (1) Chest pain at rest: Patient is a 70-year-old female with chronic stable ischemic heart disease and class I angina status post coronary intervention for non-ST segment elevation myocardial infarction August 2017. She presents for second admission with complaints of chest pain at rest with symptoms early this morning of substernal chest pain radiating to the shoulder and jaw with associated diaphoresis. Initial EKGs and enzymes are negative for acute injury pattern Symptoms are concerning for recurrence of similar complaints 1 month ago. Stress testing at that time nonischemic. CTA of the chest without evidence of pulmonary embolus or acute process Discussed above findings in detail with patient and daughter, options of management discussed. Given recent stress testing without abnormality and recurrent symptoms with concerning pattern suggestive of angina at rest patient will be referred for diagnostic cardiac catheterization later today. Procedure and risks explained in detail to the patient and informed consent will be obtained. Patient agreeable to plan Further recommendations pending the results of testing (2) CAD (coronary artery disease): (3) Dyslipidemia: (4) DM type 2 (diabetes mellitus, type 2): (5) HTN (hypertension): History of Present Illness Reason for Consultation: Chest pain at rest Requesting Physician: Dr. Sexton Attending Physician: Dr. Blount History of Present Illness Patient is a 70-year-old female with ongoing issues which include 1. Atherosclerotic coronary disease status post non-ST segment elevation myocardial infarction 08/08/2017 receiving drug-eluting stent to the mid left anterior descending with residual mild left circumflex disease 2. Dyslipidemia 3. Type 2 diabetes mellitus 4. Hypertension Patient presents today noting having had an episode of substernal chest pain radiating to the left shoulder and jaw last night. Symptoms were associated with intermittent diaphoresis and waxed and waned. It recurred briefly this morning then resolved she did take 3 baby aspirin due to concerns. History is notable for recent hospitalization approximately 1 month ago with similar concerns of chest pain and discomfort with dobutamine stress echocardiography not notable for ischemia. Patient notes not having felt well for several days with generalized malaise. No overt fevers but occasionally chills. No worsening shortness of breath. Notes chronic sleep disruption. Has chronic headaches but no visual changes. No acute weight loss or gain. No bleeding difficulties. No signs of edema or orthopnea. Appetite generally good, no difficulty taking medication. Sugars variable Allergies Allergy/AdvReac Type Severity Reaction Status Date / Time adhesive Allergy Mild ITCHY Verified 08/07/20 09:43 latex Allergy Mild LOCALIZED Verified 08/07/20 09:43 RASH lisinopril Allergy Swelling Verified 08/07/20 11:19 of Lip/Tongue/Throat Home Medications Medication Instructions Recorded Confirmed Type Jardiance 10 mg PO QAM 07/02/20 08/07/20 History aspirin 81 mg PO HS 07/02/20 08/07/20 History citalopram 30 mg PO HS 07/02/20 08/07/20 History ergocalciferol (vitamin D2) 1,250 mcg PO WK 07/02/20 08/07/20 History [Vitamin D2] levothyroxine 88 mcg PO DAILYBB 07/02/20 08/07/20 History metoprolol tartrate 12.5 mg PO Q12H 07/02/20 08/07/20 History rosuvastatin 40 mg PO QAM 07/02/20 08/07/20 History Patient History Social History Smoking Status: Former smoker Tobacco Type: Cigarettes Second Hand Exposure: No; Hx Alcohol Use: No Hx Substance Use: No Preferred Language: Lao Communication Ability: Effective 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: No Beliefs That Will Affect Care: Congregational marital status: Current Living Situation: Spouse Feels Safe at Home: Yes Assistive Devices: None Review of Systems Review of Systems: All systems reviewed & are unremarkable except as noted in HPI & below Physical Exam Constitutional: WD/WN, vitals as above Eyes: PERRL, conjunctivae normal, anicteric sclerae ENMT: external ear and nose normal, oropharynx normal Neck: trachea midline, no thyromegaly Respiratory: normal respiratory effort, lungs clear to auscultation Cardiovascular: Rate/Rhythm: regular rate and regular rhythm Heart Sounds: normal S1 and normal S2; no gallop and no murmur Palpation: normal PMI Vessels: normal carotid upstroke and radial pulses present; no JVD and no carotid bruit Extremities: no edema Gastrointestinal (Abdomen): normal bowel sounds, soft, nontender, no hepatosplenomegaly Musculoskeletal: no cyanosis or clubbing, extremities motor strength 5/5 Skin: no rashes, warm and dry Neurologic: PERRL, EOMI, accommodation nl, no face palsy, no dysarthria Psychiatric: A+Ox3, euthymic affect Results & Data ([facility]) Vital Signs (Past 12 Hours) Vital Signs Temp Pulse Pulse Resp BP BP Pulse Ox 08/07/20 10:03 63 18 123/81 98 08/07/20 09:30 98 08/07/20 08:24 36.3 C L 68 20 144/81 H 97 Laboratory Results Laboratory Results - last 24 hr 08/07/20 08/07/20 08/07/20 08:50 08:50 08:50 WBC 6.23 RBC 5.24 Hgb 16.1 H Hct 47.9 H MCV 91.4 MCH 30.7 MCHC 33.6 RDW Std Deviation 46.7 H RDW Coeff of Freya 13.8 Plt Count 404 H MPV 10.3 Immature Gran % (Auto) 0.2 Neut % (Auto) 59.7 Lymph % (Auto) 15.9 Lassen % (Auto) 20.7 Eos % (Auto) 3.2 Baso % (Auto) 0.3 Neut # (Auto) 3.72 Lymph # (Auto) 0.99 L [place]assen # (Auto) 1.29 H Eos # (Auto) 0.20 Baso # (Auto) 0.02 Immature Gran # (Auto) 0.01 APTT 27.5 PTT Ratio 1.0 D-Dimer Sodium 135 L Potassium 3.8 Chloride 105 Carbon Dioxide 25 Anion Gap 6.0 BUN 15 Creatinine 0.74 Est Cr Clr Drug Dosing 53.9 Est GFR ( Amer) 93.8 Est GFR (Non-Af Amer) 80.9 BUN/Creatinine Ratio 20.6 H Glucose 149 H Calcium 9.3 Total Bilirubin 0.5 AST 35 ALT 38 Alkaline Phosphatase 106 Troponin I < 0.015 Total Protein 8.4 H Albumin 3.9 Globulin 4.5 H Albumin/Globulin Ratio 0.9 Lipase 176 COVID-19 Eval Order SARS-CoV-2 (PCR) 08/07/20 08/07/20 08/07/20 10:01 10:20 10:20 WBC RBC Hgb Hct MCV MCH MCHC RDW Std Deviation RDW Coeff of Freya Plt Count MPV Immature Gran % (Auto) Neut % (Auto) Lymph % (Auto) Lassen % (Auto) Eos % (Auto) Baso % (Auto) Neut # (Auto) Lymph # (Auto) Lassen # (Auto) Eos # (Auto) Baso # (Auto) Immature Gran # (Auto) APTT PTT Ratio D-Dimer 1150 H* Sodium Potassium Chloride Carbon Dioxide Anion Gap BUN Creatinine Est Cr Clr Drug Dosing Est GFR ( Amer) Est GFR (Non-Af Amer) BUN/Creatinine Ratio Glucose Calcium Total Bilirubin AST ALT Alkaline Phosphatase Troponin I Total Protein Albumin Globulin Albumin/Globulin Ratio Lipase COVID-19 Eval Order Covid19 at [facility] SARS-CoV-2 (PCR) Pending
[2020-08-07] MEDS ORDERED: SODIUM CHLORIDE 0.9% 1000ML 1,000 ML IV SCH (11:30)
--- NOTE | 2020-08-07 11:40 | Ultrasound Report ---
BILATERAL LOWER EXTREMITY VENOUS DOPPLER CLINICAL HISTORY: + dd with recent cta neg COMPARISON STUDY: No previous studies for comparison. TECHNIQUE: Sonography of the deep venous system of the bilateral lower extremities was performed. Co mpression and augmentation were evaluated. FINDINGS: The bilateral common femoral, superficial femoral and popliteal veins were compressible. A ugmentation was normal. Flow was shown within the deep calf vessels. IMPRESSION: No evidence of deep venous thrombus within the bilateral lower extremities. ACT 112: Negative or not required by law. Electronically signed by: Ariel Yao M.D. 08/07/2020 11:38 AM
[2020-08-07] MEDS ORDERED: fentaNYL citrate 100 MCG/2 ML VIAL ONE (11:55)
[2020-08-07] MEDS ORDERED: niCARdipine HCL INJ 2.5 MG/ML 10 ML AMP ONE (11:55)
[2020-08-07] MEDS ORDERED: HEPARIN (PORCINE) 1000 UNIT/ML 10 ML (CATH LAB USE ONLY) ONE (11:55)
[2020-08-07] MEDS ORDERED: MIDAZOLAM HCL 1 MG/ML 2ML VIAL ONE (11:55)
[2020-08-07] MEDS ORDERED: NITROGLYCERIN/D5W 100MCG/ML 20ML SYR ONE (11:56)
--- NOTE | 2020-08-07 12:27 | Pre Anesthesia Assessment ---
Date of Service August 07, 2020 Pre Sedation Assessment Vital Signs Temp Pulse Pulse Resp BP BP Pulse Ox 08/07/20 11:00 61 17 182/111 H 99 08/07/20 10:03 63 18 123/81 98 08/07/20 09:30 98 08/07/20 08:24 36.3 C L 68 20 144/81 H 97 Cardiovascular RRR, no murmur, no edema Respiratory normal respiratory effort, lungs clear to auscultation Pre-Sedation Airway Assessment Smoking Status: Former smoker Short, Thick Neck: No Thyromental Distance: > or= 3.5 Finger Breadths Oral Cavity: + Dentures Mallampati Class: III ASA: ASA3 NPO Status Date of Last Intake of Fluids: 08/06/20 Date of Last Intake of Solid Food: 08/06/20 Procedure Planning Contraindications for Sedation: none Current Medications Reviewed: Yes Notes The planned sedation has been discussed with the patient. Informed Consent was obtained. I have identified the patient, determined the appropriateness of sedation and have assessed the patient immediately prior to the procedure. All medicine(s) and interventions are by my order.
--- NOTE | 2020-08-07 13:09 | Cardiac Catheterization ---
Cardiac Cath Procedure Brief Procedure Date August 07, 2020 Pre-Procedure Diagnosis Pre-Procedure Diagnosis: Angina AUC Score AUC Score: 8 Post-Procedure Diagnosis Post-Procedure Diagnosis: Severe CAD (Single-vessel, left circumflex) Procedure(s) Performed Procedure(s) Performed: Coronary Angiography and Left Heart Cath Pool Cleaner Donald Shepherd MD Cook Ship(s) Radhika Craig Estimated Blood Loss Estimated Blood Loss: <15cc Medication(s) Medication(s): Fentanyl (12.5 mcg IV), Heparin (5000 units IV), Lidocaine 1% (Local infiltration access site), Nicardipine (250 mcg intra-arterial after arterial sheath insertion) and Versed (1 mg IV) Preliminary Findings Right dominant coronary anatomy Widely patent stent left anterior descending Single-vessel culprit disease with 80% proximal left circumflex stenosis Normal left ventricular end-diastolic pressure Recommendations Recommendations: PCI without planned CABG Specimens Specimens: None Fluids (cc crystalloids) Fluids (cc crystalloids): 50 Anesthesia Start time 1235, stop time 1257 Procedural Complication(s) None Disposition PCI
--- NOTE | 2020-08-07 13:16 | Cardiac Catheterization ---
Cardiac Cath Procedure Full Procedure Date August 07, 2020 Pre-Procedure Diagnosis Pre-Procedure Diagnosis: Angina AUC Score AUC Score: 8 Post-Procedure Diagnosis Post-Procedure Diagnosis: Severe CAD (Single-vessel, left circumflex) Procedure(s) Performed Procedure(s) Performed: Coronary Angiography and Left Heart Cath Flying Squad Salesperson Donald Shepherd MD Grand Scribe(s) Radhika Craig Estimated Blood Loss Estimated Blood Loss: <15cc Medication(s) Medication(s): Fentanyl (12.5 mcg IV), Heparin (5000 units IV), Lidocaine 1% (Local infiltration access site), Nicardipine (250 mcg intra-arterial after arterial sheath insertion) and Versed (1 mg IV) Summary of Findings Final impressions: Right dominant coronary anatomy Widely patent stent left anterior descending Single-vessel culprit disease with 80% proximal left circumflex stenosis Normal left ventricular end-diastolic pressure Coronary angiography: Left main: Normal length and caliber without disease, mild calcification Left anterior descending: Type II in distribution. Gives rise to 2 moderate- sized diagonal branches in its proximal third and a small diagonal branch in its distal portion. Stent mid vessel widely patent. Moderate irregularities distal vessel Left circumflex: Moderately large nondominant. It gives rise to a bifurcating high obtuse marginal and continues to give rise to a second marginal branch. Between the first and second marginal branches the circumflex has a discrete 80% stenosis with moderate diffuse disease surrounding. Right coronary artery: Large and dominant distribution. It gives rise to a sinoatrial branch and 2 right ventricular branches in its proximal third. At the AV groove it gives rise to a long posterior descending artery and along the AV groove a bifurcating terminal posterior ventricular branch. There is mild luminal irregularities in the coronary greatest in its proximal third LV angiography: Not performed LV hemodynamics: 171/8/LVEDP 8 Catheters used: Long 6 Tunisian right radial glide sheath, 5 Tunisian Tullos, 5 Tunisian JL 3 5, 5 Tunisian JR4 5 Tunisian straight pick Hemodynamics Rest Ao:: 166/68/107 Final Ao: 164/63/95 LV: 171/8, LVEDP 8 Recommendations Recommendations: PCI without planned CABG Specimens Specimens: None Radiation Exposure (mGy) 331 Contrast (mls) 45 Fluids (cc crystalloids) Fluids (cc crystalloids): 50 Anesthesia Start time 1235, stop time 1257 Procedural Complication(s) None Disposition PCI I attest to the content of the Intraoperative Record and any orders documented therein. Any exceptions are noted below. ACC Data: Mop Handle Assembler Cardiac Status Clinical evaluation leading to the procedure CAD Presenation: Unstable angina Anginal Classification: CCS IV Heart Failure: No Cardiogenic Shock within 24 Hours: No Cardiac Arrest within 24 Hours: No Imaging Studies Past 6 Months: Yes Stress Studies Past 6 Months: Yes Standard Exercise Test: No Stress Echocardiogram: Yes - Negative Stress Testing w/SPECT MPI: No Cardiac CTA: No Coronary Anatomy Dominant: Right Left Main (% Stenosis): Normal LAD (% Stenosis): Mid (Widely patent stent mid vessel) and Distal (Moderate irregularity) D1 (% Stenosis): Normal D2 (% Stenosis): Normal D3 (% Stenosis): Normal (Very small) Circumflex (% Stenosis): Mid (80%) OM1 (% Stenosis): Normal OM2 (% Stenosis): Proximal (Moderate irregularity) RCA (% Stenosis): Proximal (Mild irregularity) R PDA (% Stenosis): Normal R PL1 (% Stenosis): Normal Left Ventricular Angiography EF (%): N/A Diagnostic Physicians Name: Donald Shepherd MD Closure Device Percutaneous Entry Location: Radial Recommendations: PCI without planned CABG
[2020-08-07] MEDS ORDERED: CLOPIDOGREL BISULFATE 300 MG TAB ONE (13:31)
--- NOTE | 2020-08-07 13:40 | Post Anesthesia Assessment ---
Date of Service August 07, 2020 Post Sedation Assessment Vital Signs Temp Pulse Pulse Resp BP BP Pulse Ox 08/07/20 11:00 61 17 182/111 H 99 08/07/20 10:03 63 18 123/81 98 08/07/20 09:30 98 08/07/20 08:24 97.3 F L 68 20 144/81 H 97 Recovery Score Activity: Moves 4 extremities Respiration: Deep Breath/Cough Circulation: +/-20% PreAnes Value Consciousness: Fully Awake Oxygen Saturation: O2 needed for >90% Discharge Sedation Level of Care: Fast Track Phase II Post Sedation Plan On clinical assessment, the patient appears to have tolerated the sedation without complications. Patient is recovering as anticipated. Patient will continue to be monitored by nursing and may be discharged when sedation discharge criteria are met per below protocol. Upon Completions of procedure up to 15 minutes continue every 5 minute vital signs and the P.A.R. score; then discharge to a Phase I or Fast Track to Phase II per the following guidelines: * Discharge Patient to appropriate Phase II area if PAR is 8 or greater or return to pre- procedure baseline. The post - procedure orders will be as directed. * If PAR score is less than 8 or not return to pre-procedure baseline then patient will follow Phase I monitoring till PAR is reached for Phase II. The Phase I may be done in procedure room or may call to secure a Phase I area. * If naloxone or flumazenil are used for reversal, hold in Phase I for continued monitoring from when last reversal dose was given for a minimum of 60 minutes or longer pending the nurse and/or physician discretion of patient condition before discharge to Phase II. Please call the Sedation Physician to re-evaluate and complete post-note for discharge to Phase II area. Do NOT discharge from procedure sedation or Phase 1 until post- sedation evaluation note is complete by procedure /sedation MD Sedation Discharge Instructions to be given to the patient at discharge to home.
[2020-08-07] MEDS ORDERED: ONDANSETRON INJ 2 MG/ML 2 ML VIAL IV PRN ×2 (13:49→14:02)
[2020-08-07] MEDS ORDERED: ACETAMINOPHEN 325 MG TAB PO PRN ×2 (13:49→14:02)
--- NOTE | 2020-08-07 13:49 | Cardiac Catheterization ---
ACC Data: Pediatric Oncologist Cardiac Status Clinical evaluation leading to the procedure CAD Presenation: Unstable angina Anginal Classification: CCS IV Cardiogenic Shock within 24 Hours: No Cardiac Arrest within 24 Hours: No Imaging Studies Past 6 Months: Yes Stress Studies Past 6 Months: No Diagnostic Physicians Name: Tim Arango MD Status: Elective Closure Device Percutaneous Entry Location: Radial Closure Device: Radial Band Recommendations: PCI without planned CABG PCI Indication: Unstable Angina Lesion Segment Name: Proximal circumflex Culprit Artery: Yes Stenosis Prior to Rx (%): 90 Chronic Total Occlusion: No IVUS: No FFR: No Pre-Procedure SOREN Flow: 3 Previously Treated Lesion: No Lesion Complexity: Non-High/Non-C Lesion Length (mm): 10 Thrombus Present: No Bifurcation Lesion: No Guidewire Across Lesion: Stenosis Post-Procedure (%): 0 Post-Procedure SOREN Flow: 3 Devices(s) Deployed: Yes Yes Intraprocedure Events Significant Disection: No Perforation: No Cardiac Cath Procedure Full Procedure Date August 07, 2020 Pre-Procedure Diagnosis Pre-Procedure Diagnosis: Angina AUC Score AUC Score: 8 Post-Procedure Diagnosis Post-Procedure Diagnosis: Severe CAD (Single-vessel, left circumflex) and Successful PCI Procedure(s) Performed Procedure(s) Performed: Coronary Angiography and Drug Eluting Stent Nursery Manager Tim Arango MD Compliance Representative(s) [place] Estimated Blood Loss Estimated Blood Loss: <15cc Medication(s) Medication(s): Clopidogrel, Fentanyl (12.5 mcg IV), Heparin (5000 units IV), Nicardipine (250 mcg intra-arterial after arterial sheath insertion), Nitroglycerin and Versed (1 mg IV) Summary of Findings Indication: History of CAD post prior LAD stent, recurrent anginal symptoms Access: 6 Fr right radial artery Catheters: EBU 3.5 guide Findings: For full details of patient's coronary angiography please see cath report dictated by Dr. Shepherd. Briefly, patient found to have severe CAD involving proximal circumflex. LAD stent widely patent. Decision to proceed with PCI. -- PCI -- Antithrombotic therapy: Heparin, clopidogrel Procedure: Left main cannulated with EBU 3.5 guide Co Founder And Cto 50 wire passed across lesion into distal vessel Proximal lesion predilated with 2.0 compliant balloon Dilated lesion stented with 2.25 x 12 mm Xience drug-eluting stent Stent post-dilated with stent balloon Post procedure SOREN 3 flow, stent well expanded with minimal residual stenosis and no apparent cardiac complications. Arterial Closure: TR band Summary: 1. Successful PCI of proximal circumflex with single drug-eluting stent (2.25 x 12 mm Xience). Recommendations: To PCU for continued monitoring Loaded with clopidogrel 600 mg in Pediatric Oncologist Continue dual-antiplatelet therapy for at least 6 months Consult cardiac Rehab Hemodynamics Rest Ao:: 164/63/95 Final Ao: 166/68/107 LV: 171/8 Recommendations Recommendations: PCI without planned CABG Specimens Specimens: None Radiation Exposure (mGy) 1012 Contrast (mls) 60 Drains Drains: None Anesthesia Start time 1300, stop time 1332 Procedural Complication(s) None Disposition PCU I attest to the content of the Intraoperative Record and any orders documented therein. Any exceptions are noted below. [facility] Card Cath Procedure Codes Moderate Sedation Procedure 1: Sedation/Anesthesia: 85631 Mod Sedation by the same physician; Ea [id number] Minutes Stenting Procedure 1: Cardiovascular Stent Procedures: 72306 Perc transcatheter placement of intracoronary stent(s), with ang PG Care Time/CCT Total # of Minutes Spent Total Time Spent with Patient: Total time spent is greater than 50% in coordination of care (as documented) at patient's floor/unit and/or counseling patient:
[2020-08-07] MEDS ORDERED: diphenhydrAMINE 50 MG/ML VIAL IV ONE (14:00)
[2020-08-07] MEDS ORDERED: CARBOHYDRATES FOR HYPOGLYCEMIA PO PRN (14:02)
[2020-08-07] MEDS ORDERED: GLUCOSE 40% GEL 15 GM TUBE PO PRN (14:02)
[2020-08-07] MEDS ORDERED: GLUCOSE 10 TABS/TUBE PO PRN (14:02)
[2020-08-07] MEDS ORDERED: GLUCAGON FOR INJ 1 MG VIAL SQ PRN (14:02)
[2020-08-07] MEDS ORDERED: DEXTROSE 50% 50 ML SYRINGE IV PRN (14:02)
[2020-08-07] MEDS ORDERED: INSULIN ASPART 100 UNITS/ML 3 ML PEN SC SCH (14:02)
[2020-08-07] MEDS: METOPROLOL TARTRATE 25 MG TAB PO SCH ×2 (14:18→23:34)
[2020-08-07] MEDS ORDERED: PNEUMOCOCCAL Polysaccharide Vaccine 25mcg/0.5mL vial/Syr IM ONE (15:45)
--- NOTE | 2020-08-07 15:55 | Electrocardiogram Report ---
Test Reason : Blood Pressure : / mmHG Vent. Rate : 061 BPM Atrial Rate : 061 BPM P-R Int : 196 ms QRS Dur : 076 ms QT Int : 424 ms P-R-T Axes : 045 -12 032 degrees QTc Int : 426 ms Normal sinus rhythm Normal ECG When compared with ECG of 03-JUL-2020 05:59, No significant change was found Confirmed by Nigel Lezama ([id number]) on 08/07/2020 3:54:29 PM Referred By: REFERRED SELF Confirmed By:Nigel Lezama
[2020-08-07] MEDS: INSULIN ASPART 100 UNITS/ML 3 ML PEN SC SCH ×2 (17:53→21:01)
[2020-08-07] MEDS ORDERED: Nursing to Pharmacy Communication SCH (18:45)
[2020-08-07] MEDS: CITALOPRAM 20 MG TAB PO SCH (20:02)
[2020-08-07] MEDS: amLODIPine BESYLATE 5 MG TAB PO SCH (20:02)
[2020-08-07] MEDS ORDERED: ASPIRIN 81 MG ECTAB PO SCH (21:00)
[2020-08-07] MEDS ORDERED: LORATADINE 10 MG TAB PO ONE (22:00)
[2020-08-08] MEDS: LEVOTHYROXINE SODIUM 88 MCG TABLET PO SCH (06:11)
[2020-08-08 06:38] LABS: Basophils # (auto) 0.03 K/uL (0-0.2); Basophils % (auto) 0.4 %; Eosinophils # (auto) 0.19 K/uL (0-0.5); Eosinophils % (auto) 2.4 %; Hematocrit (blood only) 46.6 % (37-47); Hemoglobin 16.1 g/dL (12.0-16.0); Immature Granulocytes # (auto) 0.02 K/uL (0.00-0.02); Immature Granulocytes % (auto) 0.3 %; Lymphocytes # (auto) 1.12 K/uL (1.2-3.4); Lymphocytes % (auto) 14.2 %; Mean Corpuscular Hemoglobin 31.4 pg (25-34); Mean Corpuscular Hgb Conc 34.5 g/dL (32-36); Mean Corpuscular Volume 90.8 fL (80-100); Mean Platelet Volume 10.3 fL (7.4-10.4); Monocytes # (auto) 1.18 K/uL (0.11-0.59); Monocytes % (auto) 14.9 %; Neutrophils # (auto) 5.37 K/uL (1.4-6.5); Neutrophils % (auto) 67.8 %; Platelet Count 420 K/uL (130-400); RDW Coefficient of Variation 13.6 % (11.5-14.5); RDW Standard Deviation 45.8 fL (36.4-46.3); Red Blood Count 5.13 M/uL (4.2-5.4); White Blood Count 7.91 K/uL (4.8-10.8)
[2020-08-08 07:30] LABS: Albumin Level 3.5 gm/dl (3.4-5.0); BUN Creatinine Ratio 21.8 (10-20); Calcium 8.7 mg/dl (8.5-10.1); Creatinine Clr Calc Pharmacy 63.9 ml/min; Est GFR (African American) 103.9 ml/min; Est GFR (Non-African American) 89.6 ml/min; Magnesium 2.1 mg/dl (1.8-2.4); Potassium 3.9 mmol/L (3.5-5.1)
[2020-08-08 07:33] LABS: Albumin Globulin Ratio 0.9 (0.9-2); Bilirubin,Total 0.5 mg/dl (0.2-1); Total Protein 7.5 gm/dl (6.4-8.2)
[2020-08-08] MEDS ORDERED: diphenhydrAMINE Capsule 25 MG CAP PO ONE (07:54)
[2020-08-08] MEDS ORDERED: FAMOTIDINE 20 MG TAB PO ONE (07:54)
[2020-08-08] MEDS: CLOPIDOGREL BISULFATE 75 MG TAB PO SCH (08:44)
[2020-08-08] MEDS: ASPIRIN 81 MG ECTAB PO SCH (08:44)
[2020-08-08] MEDS: ROSUVASTATIN CALCIUM 20 MG TAB PO SCH (08:44)
[2020-08-08] MEDS ORDERED: Nursing to Pharmacy Communication STA (09:00)
[2020-08-08] MEDS: INSULIN ASPART 100 UNITS/ML 3 ML PEN SC SCH ×5 (09:36→23:43)
[2020-08-08] MEDS ORDERED: methylPREDNISolone 40 MG in SYRINGE 0 ML IV ONE (12:30)
[2020-08-08] MEDS: METOPROLOL TARTRATE 25 MG TAB PO SCH ×2 (12:30→23:34)
[2020-08-08] MEDS: diphenhydrAMINE Capsule 25 MG CAP PO SCH ×2 (12:31→20:22)
--- NOTE | 2020-08-08 14:29 | Cardiology Progress Note ---
Date of Service August 08, 2020 Assessment & Plan (1) Chest pain at rest: Patient is a 70-year-old female with chronic stable ischemic heart disease and class I angina status post coronary intervention for non-ST segment elevation myocardial infarction August 2017. She presents for second admission with complaints of chest pain at rest with symptoms early this morning of substernal chest pain radiating to the shoulder and jaw with associated diaphoresis. Initial EKGs and enzymes are negative for acute injury pattern Underwent cardiac catheterization on 08/07/2020 revealing significant circumflex stenosis and undergoing successful PCI. Unfortunately, she now appears to be having an allergic reaction possibly to the dye, did not occur with first PCI to her LAD. Being treated by primary team with Benadryl and steroids. We will continue to monitor closely and may require emergent intubation to secure airway should there be any signs of stridor or worsening shortness of breath. (2) CAD (coronary artery disease): (3) Dyslipidemia: (4) DM type 2 (diabetes mellitus, type 2): (5) HTN (hypertension): Admission and Anticipated Discharge Date Admission Date: August 07, 2020 Subjective Chart reviewed and case discussed with nursing. Spoke with patient by phone to decrease risk of exposure to staff given Covid positivity. Currently states that her lips are swollen and her throat is feeling a little scratchy. Has received Benadryl and steroids. States that she is not having any shortness of breath at all. States no further chest discomfort, palpitations, l ightheadedness or dizziness. Telemetry reviewed: Normal sinus rhythm without arrhythmias. Review of Systems Review of Systems: All systems reviewed & are unremarkable except as noted in HPI & below Results & Data ([facility]) Vital Signs (Past 12 Hours) Vital Signs Temp Pulse Pulse Resp BP Pulse Ox 08/08/20 11:30 36.6 C 78 18 122/69 95 08/08/20 10:13 70 08/08/20 08:00 36.8 C 81 16 117/73 97 08/08/20 07:07 36.8 C 75 17 128/79 96 08/08/20 02:33 37.3 C 70 17 136/71 96 (1) CAD (coronary artery disease) Associated angina: unspecified whether angina present Coronary Disease- Associated Artery/Lesion type: unspecified vessel or lesion type [place] vs. transplanted heart: unspecified whether [place] or transplanted heart Qualified Code(s): I25.10 - Atherosclerotic heart disease of [place] coronary artery without angina pectoris
--- NOTE | 2020-08-08 19:43 | Hospitalist Progress Note ---
Date of Service August 08, 2020 Assessment & Plan (1) Chest pain: Present on admission with chest pain EKG on admission showed no ischemic changes initial troponin negative Initial troponin negative Cardiology on board Status post cardiac cath showed severe CAD involving proximal circumflex. Successful PCI of proximal circumflex with single drug-eluting stent Cardiology recommended to continue dual-antiplatelet therapy with aspirin and Plavix for at least 6 months Continue metoprolol Most recent Echo of the heart showednormal LV chamber size with EF of 55 to 60%, no segmental wall motion abnormalities Will need outpatient cardiac Rehab Currently denies any chest pain (2) COVID-19: COVID-19 positive on admission Asymptomatic (3) Lip swelling: Possible related to the dye from the cardiac cath Lip swelling started this morning Solu-Medrol 40 mg x 1, Benadryl and Pepcid We will monitor for signs of airway compromise We will continue Pepcid and Benadryl (4) CAD (coronary artery disease): Hx of [place] in 2019, s/p stenting to LAD Cont metoprolol tartrate 12.5 mg BID, A and Plavix spirin (5) DM type 2 (diabetes mellitus, type 2): Hemoglobin A1c pending Continue to hold p.o. diabetes meds On insulin sliding scale (6) Dyslipidemia: -Continue rosuvastatin (7) Hypothyroidism: -Continue levothyroxine 88 mcg daily, took med this morning DVT PPx: - teds, scds CODE: Full code Dispo: Possible discharge home tomorrow Admission and Anticipated Discharge Date Admission Date: August 07, 2020 Subjective Patient was seen and examined for follow up of chest pain Lying in bed with no distress This morning patient developed allergic reaction with lips swelling She said that she felt scratchy in her throat She denies any difficulty of breathing Denies any chest pain, palpitation, dizziness, shortness of breath. Review of Systems Review of Systems: All systems reviewed & are unremarkable except as noted in Subjective Physical Exam Physical Exam: General- No acute distress Head- atraumatic Eyes- PERRL, EOMI, ENT- Lips swelling Neck- supple, no JVD Lungs- clear to auscultation Heart- regular rhythm; no murmur Abdomen- normal bowel sounds, soft, nontender Extremities- no calf tenderness, no hematoma in right wrist area Neuro- alert, oriented x 3; PERRL, EOMI; no facial palsy; no dysarthria Skin- warm & dry Results & Data Results & Data ([facility]) Vital Signs (Past 12 Hours) Vital Signs Temp Pulse Pulse Resp BP Pulse Ox 08/08/20 16:00 71 16 98 08/08/20 11:30 36.6 C 78 18 122/69 95 08/08/20 10:13 70 08/08/20 08:00 36.8 C 81 16 117/73 97 (1) CAD (coronary artery disease) Associated angina: unspecified whether angina present Coronary Disease- Associated Artery/Lesion type: unspecified vessel or lesion type [place] vs. transplanted heart: unspecified whether [place] or transplanted heart Qualified Code(s): I25.10 - Atherosclerotic heart disease of [place] coronary artery without angina pectoris (2) Chest pain Chest pain type: unspecified Qualified Code(s): R07.9 - Chest pain, unspecified
[2020-08-08] MEDS: amLODIPine BESYLATE 5 MG TAB PO SCH (20:22)
[2020-08-08] MEDS: FAMOTIDINE 20 MG TAB PO SCH (20:22)
[2020-08-08] MEDS: CITALOPRAM 20 MG TAB PO SCH (20:23)
[2020-08-08] MEDS ORDERED: INSULIN GLARGINE SOLOSTAR 100 UNITS/ML 3 ML PEN SC STA (21:14)
[2020-08-08] MEDS ORDERED: NSS + 20MEQ KCL 20 MEQ/1,000 ML BAG IV ONE (21:30)
[2020-08-09] MEDS: LEVOTHYROXINE SODIUM 88 MCG TABLET PO SCH (04:39)
[2020-08-09] MEDS: diphenhydrAMINE Capsule 25 MG CAP PO SCH ×2 (04:39→11:00)
[2020-08-09] MEDS ORDERED: LORATADINE 10 MG TAB PO ONE (04:48)
[2020-08-09] MEDS ORDERED: diphenhydrAMINE 50 MG/ML VIAL IV STA (04:48)
[2020-08-09] MEDS ORDERED: methylPREDNISolone 20 MG in SYRINGE 0 ML IV ONE (05:00)
[2020-08-09] MEDS: INSULIN GLARGINE SOLOSTAR 100 UNITS/ML 3 ML PEN SQ SCH ×2 (05:17→05:43)
[2020-08-09 06:52] LABS: Hematocrit (blood only) 48.4 % (37-47); Mean Corpuscular Hemoglobin 31.3 pg (25-34); Mean Corpuscular Hgb Conc 35.1 g/dL (32-36); Mean Corpuscular Volume 89.1 fL (80-100); Mean Platelet Volume 10.5 fL (7.4-10.4); Platelet Count 483 K/uL (130-400); RDW Coefficient of Variation 13.6 % (11.5-14.5); RDW Standard Deviation 44.4 fL (36.4-46.3); Red Blood Count 5.43 M/uL (4.2-5.4)
[2020-08-09 07:23] LABS: Albumin Level 3.4 gm/dl (3.4-5.0); BUN Creatinine Ratio 30.3 (10-20); Creatinine Clr Calc Pharmacy 53.7 ml/min; Est GFR (African American) 92.3 ml/min; Est GFR (Non-African American) 79.6 ml/min; Potassium 4.3 mmol/L (3.5-5.1)
[2020-08-09 07:25] LABS: Albumin Globulin Ratio 0.8 (0.9-2); Bilirubin,Total 0.6 mg/dl (0.2-1); Globulin 4.1 gm/dl (2.5-4.0); Total Protein 7.5 gm/dl (6.4-8.2)
[2020-08-09] MEDS: FAMOTIDINE 20 MG TAB PO SCH (08:29)
[2020-08-09] MEDS: CLOPIDOGREL BISULFATE 75 MG TAB PO SCH (08:29)
[2020-08-09] MEDS: ASPIRIN 81 MG ECTAB PO SCH (08:29)
[2020-08-09] MEDS: ROSUVASTATIN CALCIUM 20 MG TAB PO SCH (08:30)
[2020-08-09] MEDS: INSULIN ASPART 100 UNITS/ML 3 ML PEN SC SCH ×2 (08:39→12:26)
[2020-08-09] MEDS ORDERED: INSULIN GLARGINE SOLOSTAR 100 UNITS/ML 3 ML PEN SQ SCH (09:00)
[2020-08-09] MEDS: METOPROLOL TARTRATE 25 MG TAB PO SCH (11:00)
--- NOTE | 2020-08-09 13:03 | Cardiology Progress Note ---
Date of Service August 09, 2020 Assessment & Plan (1) Chest pain at rest: Patient is a 70-year-old female with chronic stable ischemic heart disease and class I angina status post coronary intervention for non-ST segment elevation myocardial infarction August 2017. She presents for second admission with complaints of chest pain at rest with symptoms early this morning of substernal chest pain radiating to the shoulder and jaw with associated diaphoresis. Initial EKGs and enzymes are negative for acute injury pattern Underwent cardiac catheterization on 08/07/2020 revealing significant circumflex stenosis and undergoing successful PCI. Unfortunately, she now appears to be having an allergic reaction possibly to the dye, did not occur with first PCI to her LAD. Being treated by primary team with Benadryl and steroids. Her reaction seems to have resolved. Recommend DC to home with Medrol Dosepak along with Benadryl and Pepcid. Patient counseled at great length that should she develop any shortness of breath or recurrent swelling she should be seen at the nearest emergency department immediately, she states that she will comply. My office will call to arrange follow-up in the next 2 to 4 weeks. Okay to DC to home on current medical regimen. (2) CAD (coronary artery disease): (3) Dyslipidemia: (4) DM type 2 (diabetes mellitus, type 2): (5) HTN (hypertension): Admission and Anticipated Discharge Date Admission Date: August 07, 2020 Subjective Chart reviewed and case discussed with nursing. To limit staff exposure to COVID-19 spoke to patient by phone. States that she is feeling much better today. Lip swelling and throat scratchiness have resolved. Only a slight rash on her thighs. Denies chest pain, shortness of breath, palpitations, lighthead edness, dizziness or syncope. Telemetry reviewed: Normal sinus rhythm without arrhythmia or significant ectopy. Review of Systems Review of Systems: All systems reviewed & are unremarkable except as noted in HPI & below Results & Data ([place]) Vital Signs (Past 12 Hours) Vital Signs Temp Pulse Pulse Resp BP Pulse Ox 08/09/20 11:20 36.8 C 81 16 136/72 98 08/09/20 10:58 83 130/86 08/09/20 07:42 36.5 C 64 16 116/73 98 08/09/20 07:27 72 08/09/20 04:55 68 08/09/20 04:26 37.0 C 68 17 148/78 H 97 (1) CAD (coronary artery disease) Associated angina: unspecified whether angina present Coronary Disease- Associated Artery/Lesion type: unspecified vessel or lesion type [place] vs. transplanted heart: unspecified whether [place] or transplanted heart Qualified Code(s): I25.10 - Atherosclerotic heart disease of [place] coronary artery without angina pectoris
--- NOTE | 2020-08-09 13:37 | Hospitalist Progress Note ---
Date of Service August 09, 2020 Assessment & Plan (1) Chest pain: Present on admission with chest pain EKG on admission showed no ischemic changes initial troponin negative Initial troponin negative Cardiology on board Status post cardiac cath showed severe CAD involving proximal circumflex. Successful PCI of proximal circumflex with single drug-eluting stent Cardiology recommended to continue dual-antiplatelet therapy with aspirin and Plavix for at least 6 months Continue metoprolol 12.5 mg BID Most recent Echo of the heart showednormal LV chamber size with EF of 55 to 60%, no segmental wall motion abnormalities Will need outpatient cardiac Rehab Currently denies any chest pain Case discussed with cardiology and ok from cardiology standpoint to discharge home Follow up with cardiology in 2 to 4 weeks (2) COVID-19: COVID-19 positive on admission Asymptomatic Pt was advised to remain quarantine for atleast 10 days even though she does not have any symptoms (3) Lip swelling: Allergic reaction She developed Lip swelling, rash and itching Possible related to the dye from the cardiac cath Lip swelling yesterday- seems to be a delay reaction with the dye Received Solu-Medrol 40 mg, Benadryl and Pepcid No signs of airway compromise and saturated well on Ra We will continue steroid (medrol dose or Prednisone 20mg daily ) Pepcid and Benadryl Pt was advised if she develops any SOB or lips swelling reoccurs to seek urgent medical attention (4) CAD (coronary artery disease): Hx of [place] in 2019, s/p stenting to LAD Cont metoprolol tartrate 12.5 mg BID, A and Plavix spirin (5) DM type 2 (diabetes mellitus, type 2): Hemoglobin A1c pending Continue to hold p.o. diabetes meds during hospital course, will resume on discharge On insulin sliding scale (6) Dyslipidemia: Continue rosuvastatin (7) Hypothyroidism: -Continue levothyroxine 88 mcg daily CODE: Full code Dispo: Possible discharge home today Admission and Anticipated Discharge Date Admission Date: August 07, 2020 Subjective Pt was seen and examined for follow up of lips swelling Pt already standing in her room dress and ready to discharge Her lips swelling improves significantly She said that she feels fine Denies any chest pain, palpitation, dizziness and SOB Review of Systems Review of Systems: All systems reviewed & are unremarkable except as noted in Subjective Physical Exam Physical Exam: General- No acute distress Head- atraumatic Eyes- PERRL, EOMI, ENT- Lips swelling Neck- supple, no JVD Lungs- clear to auscultation Heart- regular rhythm; no murmur Abdomen- normal bowel sounds, soft, nontender Extremities- no calf tenderness, no hematoma in right wrist area Neuro- alert, oriented x 3; PERRL, EOMI; no facial palsy; no dysarthria Skin- warm & dry Results & Data Results & Data ([facility]) Vital Signs (Past 12 Hours) Vital Signs Temp Pulse Pulse Resp BP Pulse Ox 08/09/20 11:20 36.8 C 81 16 136/72 98 08/09/20 10:58 83 130/86 08/09/20 07:42 36.5 C 64 16 116/73 98 08/09/20 07:27 72 08/09/20 04:55 68 08/09/20 04:26 37.0 C 68 17 148/78 H 97 (1) CAD (coronary artery disease) Associated angina: unspecified whether angina present Coronary Disease- Associated Artery/Lesion type: unspecified vessel or lesion type [place] vs. transplanted heart: unspecified whether [place] or transplanted heart Qualified Code(s): I25.10 - Atherosclerotic heart disease of [place] coronary artery without angina pectoris (2) Chest pain Chest pain type: unspecified Qualified Code(s): R07.9 - Chest pain, unspecified
[2020-08-10 07:46] LABS: Estimated Average Glucose 177 mg/dl; Hemoglobin A1C 7.8 % (4.5-5.6)
--- NOTE | 2020-08-10 13:08 | Discharge Summary ---
Date of Service August 09, 2020 Admission HPI Per Admitting Provider This is a 70 yo F with PMHx of CAD, history of [place] 3 years ago s/p stenting to the LAD, HTN, HLD, DM type II, osteopenia, hypothyroidism, history of breast cancer, who presents to the ER with acute onset of chest pain. She reports drinking coffee this morning and typically does not drink much coffee, felt increased substernal chest pain which lasted for approximately 1 hour on and off. Currently she is chest pain-free. She took 3 baby aspirin's this morning before coming to the ER. Patient does not have a prescription for nitroglycerin, and did not take any today. She denies any radiation of pain but did note increased sweating. Her daughter is present with her at bedside and supports the history. She was previously admitted from 07/03 through 07/04 this spring for similar presentation with chest pain. At that time she underwent a dobutamine stress test which was found to be negative. Today, her initial troponin is negative, EKG is without any acute ST wave inversions or changes, cardiology was consulted and plans to perform cardiac cath today, prior to the holiday weekend. 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 She is a full code. Patient would not want to be maintained on life support. Her and daughter would make decisions for her if she was unable to. Patient reports strong family history of CAD, HTN. She denies any personal history of previous stroke, arrhythmia but admits to previous heart attack 3 years ago. Admission Exam Per Admitting Provider General: awake, alert, no apparent distress Head: Normocephalic, atraumatic ENT: PERRL, EOMI, no pharyngeal exudate, mucous membranes moist, no carotid bruits Chest: Clear to auscultation, on room air, no adventitious breath sounds Cardiac: Regular rate and rhythm, no murmur, no JVD, normal peripheral pulses, good capillary refill Abdominal: NABS x 4 quadrants, soft, nondistended, nontender to palpation, no rebound or guarding Extremities: Normal inspection, no peripheral edema or erythema, calfs nontender to palpation Psych: Normal mood and affect Neuro: AAO x 3, strength intact bilaterally and rated 5/5, no motor deficits, speech is clear, no peripheral sensory deficits Principal Diagnosis Chest pain: COVID-19: Lip swelling/Rash due to allergic reaction CAD (coronary artery disease): DM type 2 (diabetes mellitus, type 2): Discharge Exam General- No acute distress Head- atraumatic Eyes- PERRL, EOMI, ENT- Lips swelling Neck- supple, no JVD Lungs- clear to auscultation Heart- regular rhythm; no murmur Abdomen- normal bowel sounds, soft, nontender Extremities- no calf tenderness, no hematoma in right wrist area Neuro- alert, oriented x 3; PERRL, EOMI; no facial palsy; no dysarthria Skin- warm & dry Discharge Data Allergies Allergy/AdvReac Type Severity Reaction Status Date / Time clopidogrel Allergy Severe Lip Verified 08/10/20 09:57 swelling, hives adhesive Allergy Mild ITCHY Verified 08/10/20 09:24 latex Allergy Mild LOCALIZED Verified 08/10/20 09:24 RASH lisinopril Allergy Swelling Verified 08/10/20 09:24 of Lip/Tongue/Throat Consultations 08/07/20 10:25 ED Decision to Admit Stat 08/07/20 13:56 Consult Cardiac Rehabilitation Routine 08/07/20 14:02 Consult Cardiology Routine Procedures Performed Operation Date: 08/07/20 12:00 Actual Procedures s Cineradiography w/Routine Exam - Arun Arango MD p Drug Eluting Stent each ADDTL Vessel - Arun Arango MD p Cath, Left with Cors and Vent - Donald Shepherd MD Ordered Studies 08/07/20 10:43 US venous doppler LE BI Stat 08/07/20 11:44 CL Cath Imgs for PACS use only Stat BILATERAL LOWER EXTREMITY VENOUS DOPPLER CLINICAL HISTORY: + dd with recent cta neg COMPARISON STUDY: No previous studies for comparison. TECHNIQUE: Sonography of the deep venous system of the bilateral lower extremities was performed. Compression and augmentation were evaluated. FINDINGS: The bilateral common femoral, superficial femoral and popliteal veins were compressible. Augmentation was normal. Flow was shown within the deep calf vessels. IMPRESSION: No evidence of deep venous thrombus within the bilateral lower extremities. ACT 112: Negative or not required by law. Electronically signed by: Ariel Yao M.D. 08/07/2020 11:38 AM Dictated: 08/07/20 1138Transcribed: 08/07/20 1138 XR chest 1V portable CLINICAL HISTORY: Chest Pain COMPARISON STUDY: Chest radiograph and chest CT July 02, 2020. FINDINGS: Lung volumes are normal. Lungs are clear. There is no pneumothorax or pleural effusion. Cardiac size is normal. Mediastinal contours are normal. There is no evidence for pulmonary edema. IMPRESSION: No acute cardiopulmonary findings. ACT 112: Negative or not required by law. Electronically signed by: Ariel Yao M.D. 08/07/2020 9:54 AM Dictated: 08/07/20 0953Transcribed: 08/07/20 0953 Hospital Course (1) Chest pain: Present on admission with chest pain EKG on admission showed no ischemic changes initial troponin negative Initial troponin negative Cardiology on board Status post cardiac cath showed severe CAD involving proximal circumflex. Successful PCI of proximal circumflex with single drug-eluting stent Cardiology recommended to continue dual-antiplatelet therapy with aspirin and Plavix for at least 6 months Continue metoprolol 12.5 mg BID Most recent Echo of the heart showednormal LV chamber size with EF of 55 to 60%, no segmental wall motion abnormalities Will need outpatient cardiac Rehab Currently denies any chest pain Case discussed with cardiology and ok from cardiology standpoint to discharge home Follow up with cardiology in 2 to 4 weeks (2) COVID-19: COVID-19 positive on admission Asymptomatic Pt was advised to remain quarantine for atleast 10 days even though she does not have any symptoms (3) Lip swelling: Allergic reaction She developed Lip swelling, rash and itching Possible related to the dye from the cardiac cath Lip swelling yesterday- seems to be a delay reaction with the dye Received Solu-Medrol 40 mg, Benadryl and Pepcid No signs of airway compromise and saturated well on Ra We will continue steroid (medrol dose or Prednisone 20mg daily ) Pepcid and Benadryl Pt was advised if she develops any SOB or lips swelling reoccurs to seek urgent medical attention (4) CAD (coronary artery disease): Hx of [place] in 2019, s/p stenting to LAD Cont metoprolol tartrate 12.5 mg BID, A and Plavix spirin (5) DM type 2 (diabetes mellitus, type 2): Hemoglobin A1c pending Continue to hold p.o. diabetes meds during hospital course, will resume on di scharge On insulin sliding scale (6) Dyslipidemia: Continue rosuvastatin (7) Hypothyroidism: -Continue levothyroxine 88 mcg daily CODE: Full code Dispo: Possible discharge home today Total Time Total Time Spent Total Time Spent (In Minutes): 35 minutes Total Time Includes: Examination of the Patient, Discharge Planning, Medication Reconciliation, Communication With Other Providers and Other Discharge Plan Discharge Items Patient Disposition: Home - Self-Care Reason For Visit: CHEST PAIN Discharge Diagnosis: Chest pain: COVID-19: Lip swelling/Rash due to allergic reaction CAD (coronary artery disease): DM type 2 (diabetes mellitus, type 2): Activity: Resume your previous activity Non-emergency contact: Primary Care Provider and [employer] Team Member Call non-emergency contact if: you have any medication questions and your symptoms worsen Follow-up/Referrals: Rosita Diaz PA-C [Primary Care Provider] - Allie Bull MD [Outside Practitioners] - 08/14/20 3:40 pm (Please follow up with Dr. Bull on Monday08/14/20 at 3:40 pm. Please arrive to the office at 3:25 pm for your appointment. If you are unable to keep this appointment, please call the office to reschedule at [phone].) Diet: Carb Consistent or DM2 Addtl Attending Provider Instructions: Follow up with your primary care provider within 1 week (please call for the appointment) Follow up with cardiology in 2 - 4 weeks Continue dual antiplatelet therapy with aspirin and plavix Your provider or photographic processor will refer you for cardiac rehab Seeks urgent medical attention if you develop recurrent lips swelling or shortness of breath Continue to wear mask and quarantine for atlest 10 days from positive test on 08/07/20 Keep the area for the cardiac cath clean and dry to avoid any infection Do not use creams, lotions or ointment on the wound site Do not take a bath, tub soak, go in a Jacuzzi, or swim in a pool or hanna for one week after the procedure. Do not participate in strenuous activities for 3 days after the procedure. Gradually increase your activities until you reach your normal activity level within two days after the procedure. Avoid heavy lifting (more than 10 pounds) and pushing or pulling heavy objects for the first 5 days after the procedure. Coronavirus disease 2019 (COVID-19) is a virus that causes a respiratory illness. It is caused by a coronavirus called 2019 novel coronavirus (2019- nCoV). There are many types of coronavirus. Coronaviruses are a very common cause of bronchitis. They may sometimes cause lung infection(pneumonia). Symptoms can range from mild to severe respiratory illness. These viruses are also foundin some animals. COVID-19 was first found in people in [facility], in late 2019. In 2020, several cases of COVID-19 have been confirmed in the [place] Public health officials are working to find the source. How the virus spreads is not yet fully known. It may be spread through droplets of fluid that a person coughs or sneezes into the air. It may be spread if you touch a surface with virus on it, such as a handle or object, and then touch your mouth. What are the symptoms of COVID-19? Some people have no symptoms or mild symptoms. Symptoms may appear 2 to 14 days after contact with the virus. Symptoms can include: Fever Coughing Trouble breathing What are possible complications from COVID-19? In many cases, this virus can cause infection (pneumonia) in both lungs. In some cases, this can cause . How is COVID-19 diagnosed? Your healthcare provider will ask about your symptoms. He or she will also ask about your recent travel and contact with sick people. Testing for the virus is only done through the CDC. If yourhealthcare provider thinks you may have COVID- 19, he or she will work with your local health department and the CDC on testing. Follow all instructions from your healthcare provider. COVID-19 is diagnosed by: Nasal and throat swab. A cotton-tipped swab is wiped inside your nose or throat. This is done to check for viruses in your nasal mucus. Sputum culture. A small sample of mucus coughed from your lungs (sputum) is collected if you have a cough. It is checked for the virus. How is COVID-19 treated? There is currently no medicine to treat the virus. Treatment is done to help your body while it fights the virus. This is known as supportive care. Supportive care may include: Pain medicine. These include acetaminophen and ibuprofen. They are used to help ease pain and reduce fever. Bed rest. This helps your body fight the illness. For severe illness, you may need to stay in the hospital. Care during severe illness may include: IV (intravenous) fluids.These are given through a vein to help keep your body hydrated. Oxygen. Supplemental oxygen or ventilation with a breathing machine (ventilator) may be given. This is done to keep enough oxygen in your body. Are you at risk for COVID-19? If youve been to a place where people have been sick with this virus, you are at risk for infection. You are at risk if you: Recently traveled to an affected area Had contact with a sick person who recently traveled to this area Had contact with a person who was diagnosed with COVID-19 How can COVID-19 be prevented? There is no vaccine yet. The best prevention is to not have contact with the virus. The CDC advises that people should not travel to areas where there are COVID-19 outbreaks right now for any reason that is not urgent. To help prevent spreading the infection, wash your hands often, or use an alcohol-basedhand pv design engineer. If you are in an area with COVID-19: Wash your hands often. Or use an alcohol-based hand pv design engineer often. Only touch your eyes, nose, or mouth with clean hands. Dont have contact with people who are sick. Follow local instructions about being in public. For example, you may be told to not use public transport for a period of time. Stay away from markets that have live or animals. Wash your hands after touching any animals. Don't touch animals that may be sick. Dont share eating or drinking tools with sick people. Dont kiss someone who is sick. Clean surfaces often with disinfectant. If you were in an area with COVID-19 in the last 14 days: Call your healthcare provider. He or she can talk with local health staff to see what action may be needed. Follow all instructions from your provider. Take your temperature every morning and evening for at least 14 days. This is to check for fever. Keep a record of the readings. Keep watch for symptoms of the virus. Tell your provider right away if you have symptoms. If you were in an area with COVID-19 and have a fever or other symptoms: Dont panic. Keep in mind that other illnesses can cause similar symptoms. Stay away from work, school, and public places. Limit physical contact with family members. Don't kiss anyone or share eating or drinking utensils. Clean surfaces you touch with disinfectant. This is to help prevent the virus from spreading. Call your healthcare provider. Explain that you have been exposed to COVID-19 and have symptoms. Do this before going to any hospital. Wait for instructions. Keep in mind that healthcare staff may wear protective equipment such as masks, gowns, gloves, and eye protection. You may be put in a separate room. This is to prevent the possible virus from spreading. Tell the healthcare staff about recent travel. This includes local travel on public transport. Staff may need to find other people you have been in contact with. Follow all instructions the healthcare staff give you. If you have been diagnosed with COVID-19 Follow all instructions from your healthcare provider. Dont leave your home, except to get medical care. Call your healthcare providers office before going. They can prepare and give you instructions. This will help prevent the virus from spreading. Dont go to work, school, or public areas. Dont use public transport or taxis. Stay away from other people in your home. Have them wear face masks around you. Dont share household items or food. Wear a face mask if you can. This includes at home or in a medical facility. Cover your face with a tissue when you cough or sneeze. Throw the tissue away. Wash your hands. Wash your hands often. Caregivers should: Follow all instructions from healthcare staff. Wear a face mask and protective clothing as advised. Wash hands often. Keep track of the sick persons symptoms. Clean surfaces, fabrics, and laundry thoroughly. Keep other people away from the sick person. When to call your healthcare provider Call your healthcare provider: If youve recently traveled and have symptoms If you have been diagnosed with COVID-19 and your symptoms are worse To learn more To find out more about COVID-19, visit the CDC website at www.cdc.gov/cor onavirus/2019-ncov/index.html. The [employer]. [address] [place] [address], [place] [address]. All rights reserved. This information is not intended as a substitute for professional medical care. Always follow your healthcare professional's instructions. This information has been adapted from [employer] Home Isolation COVID-19 Instructions The following information about Home Isolation is from the CDC Website: https://www.cdc.gov/coronavirus/2019-ncov/hcp/ftxkijau-doqavib-gctxth.html Stay home except to get medical care People who are mildly ill with COVID-19 are able to isolate at home during their illness. You should restrict activities outside your home, except for getting medical care. Do not go to work, school, or public areas. Avoid using public transportation, ride-sharing, or taxis. Separate yourself from other people and animals in your home People: As much as possible, you should stay in a specific room and away from other people in your home. Also, you should use a separate bathroom, if available. Animals: You should restrict contact with pets and other animals while you are sick with COVID-19, just like you would around other people. Although there have not been reports of pets or other animals becoming sick with COVID-19, it is still recommended that people sick with COVID-19 limit contact with animals until more information is known about the virus. When possible, have another member of your household care for your animals while you are sick. If you are sick with COVID-19, avoid contact with your pet, including petting, snuggling, being kissed or licked, and sharing food. If you must care for your pet or be around animals while you are sick, wash your hands before and after you interact with pets and wear a face mask. Call ahead before visiting your doctor If you have a medical appointment, call the healthcare provider and tell them that you have or may have COVID-19. This will help the healthcare providers office take steps to keep other people from getting infected or exposed. Wear a face mask You should wear a face mask when you are around other people (e.g., sharing a room or vehicle) or pets and before you enter a healthcare providers office. If you are not able to wear a face mask (for example, because it causes trouble breathing), then people who live with you should not stay in the same room with you, or they should wear a face mask if they enter your room. Cover your coughs and sneezes Cover your mouth and nose with a tissue when you cough or sneeze. Throw used tissues in a lined trash can. Immediately wash your hands with soap and water for at least 20 seconds or, if soap and water are not available, clean your hands with an alcohol-based hand pv design engineer that contains at least 60% alcohol. Clean your hands often Wash your hands often with soap and water for at least 20 seconds, especially after blowing your nose, coughing, or sneezing; going to the bathroom; and before eating or preparing food. If soap and water are not readily available, use an alcohol-based hand pv design engineer with at least 60% alcohol, covering all surfaces of your hands and rubbing them together until they feel dry. Soap and water are the best option if hands are visibly dirty. Avoid touching your eyes, nose, and mouth with unwashed hands. Avoid sharing personal household items You should not share dishes, drinking glasses, cups, eating utensils, towels, or bedding with other people or pets in your home. After using these items, they should be washed thoroughly with soap and water. Clean all high-touch surfaces everyday High touch surfaces include counters, tabletops, doorknobs, bathroom fixtures, toilets, phones, keyboards, tablets, and bedside tables. Also, clean any surfaces that may have blood, stool, or body fluids on them. Use a household cleaning spray or wipe, according to the label instructions. Labels contain instructions for safe and effective use of the cleaning product including precautions you should take when applying the product, such as wearing gloves and making sure you have good ventilation during use of the product. Monitor your symptoms Seek prompt medical attention if your illness is worsening (e.g., difficulty breathing).Beforeseeking care, call your healthcare provider and tell them that you have, or are being evaluated for, COVID-19. Put on a face mask before you enter the facility. These steps will help the healthcare providers office to keep other people in the office or waiting room from getting infected or exposed. Ask your healthcare provider to call the local or state health department. Persons who are placed under active monitoring or facilitated self- monitoring should follow instructions provided by their local health department or occupational health professionals, as appropriate. When working with your local health department check their available hours. If you have a medical emergency and need to call 911, notify the dispatch personnel that you have, or are being evaluated for COVID-19. If possible, put on a face mask before emergency medical services arrive. Discontinuing home isolation Patients with confirmed COVID-19 should remain under home isolation precautions until the risk of secondary transmission to others is thought to be low. The decision to discontinue home isolation precautions should be made on a [id number] basis, in consultation with healthcare providers and state and local health departments. Pending Studies at Discharge: Yes Stand-Alone Forms: [facility], Smoking Cessation Medications and DC Order Prescriptions: New diphenhydramine HCl [Benadryl] 25 mg Capsule 25 mg PO Q8H 5 Days Qty: 15 RF: 0 clopidogrel 75 mg Tablet 75 mg PO QAM Qty: 30 RF: 0 amlodipine [Norvasc] 5 mg Tablet 5 mg PO HS Qty: 30 RF: 0 famotidine 20 mg Tablet 20 mg PO BID 5 Days Qty: 10 RF: 0 prednisone 20 mg tablet 20 mg PO DAILY Qty: 5 RF: 0 Continued aspirin 81 mg Tablet,Delayed Release (Dr/Ec) 81 mg PO HS RF: 0 levothyroxine 88 mcg tablet 88 mcg PO DAILYBB RF: 0 citalopram 20 mg tablet 30 mg PO HS RF: 0 ergocalciferol (vitamin D2) [Vitamin D2] 1,250 mcg (50,000 unit) Capsule 1,250 mcg PO WK RF: 0 rosuvastatin 40 mg tablet 40 mg PO QAM RF: 0 metoprolol tartrate 25 mg tablet 12.5 mg PO Q12H RF: 0 Jardiance 10 mg tablet 10 mg PO QAM RF: 0 Discharge Orders: Discharge Order (Routine); Ordered 08/09/20 Ordered By: Julian Figueroa/Other Patient Handouts: COVID-19 Home Care, Taking Amlodipine Admission Data Admit Date/Time: 08/07/20 13:54 Attending Provider: Julian Blount Admit Provider: Julian Blount Primary Care Provider: Rosita Diaz Other Providers: Julian Blount ; Donald Shepherd Other Interventions: Discharge Summary Assessment (RN) Last Done: 08/09/20 13:59
== END 2020-08-09 14:21 | disposition home or self-care (01) | DRG 246 ==
LOC: ED 08:15 → CC 11:50 → 2S 11:50 → SUATTDRO 13:54

== ENCOUNTER 2020-08-10 08:30 | Observation (INO) ==
[2020-08-10] MEDS ORDERED: SODIUM CHLORIDE 0.9% 1000ML 1,000 ML IV ONE (09:33)
[2020-08-10] MEDS ORDERED: FAMOTIDINE 20MG IV PUSH 20 MG/5 ML SYR IV STA (09:33)
[2020-08-10] MEDS ORDERED: methylPREDNISolone 125 MG/2 ML VIAL IV STA (09:33)
[2020-08-10] MEDS ORDERED: diphenhydrAMINE 50 MG/ML VIAL IV STA (09:33)
[2020-08-10] MEDS ORDERED: TICAGRELOR 90 MG TAB PO ONE (10:00)
--- NOTE | 2020-08-10 10:17 | Pharmacy Report ---
ED Pharmacist Progress Note - ED Pharmacist Progress Note Date of Service:: August 10, 2020 Notes:: Situation * Patient presented to ED today with significant hives all over her body per Dr. Bai. Assessment of causative agent requested given multiple medication exposures recently. Background * Patient admitted to [facility] 08/07-08/09 for cardiac cath. Received IV dye during the cath on 08/07 and a clopidogrel loading dose was overriden from the [facility]. New start amlodipine was initiated 08/07 PM. Clopidogrel administered 08/08 @ 0844. 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 Allergic reaction noted by hospitalist team - initially attributed to delayed reaction from IV dye from cath on 08/07. Amlodipine administered 08/08 PM. Clopidogrel administered 08/09 AM. Patient discharged 08/09 with new Rx's for clopidogrel, amlodipine, diphen hydramine, famotidine, and prednisone * Spoke w patient on 08/10 in ED - she reports no known previous exposure to clopidogrel prior to her recent admission. She notes she has received IV dye before (confirmed in chart - Ioversol ordered on 10/02/06 and 07/02/20). Patient also reports previous cardiac cath on 08/08/17 (NSTEMI s/p OMAR to LAD discharged on aspirin and Brilinta per chart review). She reports she did not have any symptoms of an allergic reaction on 08/07 and confirms the symptoms started 08/08 AM. 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 Furthermore, symptoms began ~20 hours after the most recent exposure. Patient worsening on 08/10 with presentation to the ED also makes allergy to IV dye less likely as patient has not received this since 08/07 * Clopidogrel fits the anticipated timeline for Type 1 hypersensitivity (within an hour of the dose on 08/08 AM) and also the exposure history (likely the 2nd dose with no previous exposures noted) Recommendation * Stop clopidogrel. Switch to a different antiplatelet medication (per Dr. Bai - cardiology recommended Brilinta) * Clopidogrel has been added to the patient's allergy list
[2020-08-10] MEDS ORDERED: EPINEPHrine INJ 1 MG/ML AMP IM STA ×2 (10:58→11:49)
[2020-08-10] MEDS ORDERED: EPINEPHrine ADULT AUTO-INJECT 0.3 MG SYR IM STA (10:59)
--- NOTE | 2020-08-10 14:50 | History & Physical Report ---
Date of Service August 10, 2020 Assessment & Plan (1) Allergic reaction: -Admit to telemetry -Patient presenting from home with reports of worsening hives -S/p cardiac cath w/ stent on 08/07. Initially thought to have reaction to IVP dye however after pharmacist extensive chart review, reaction seems to be due to Plavix. Was discharged on prednisone, famotidine, Benadryl. -Received IV famotidine, IV Benadryl, IV Solu-Medrol 125 mg, epinephrine IM x2 in the ED w/ improvement -Airway intact, no signs of angioedema -Continue famotidine twice daily, scheduled Benadryl every 8 hours, prednisone 40 mg daily starting tomorrow (2) CAD (coronary artery disease): -S/p OMAR to proximal circumflex on 08/07/2020 -Change Plavix to Brilinta per Cardio (ED provider discussed) -Continue aspirin, statin, beta-guillermina (3) DM type 2 (diabetes mellitus, type 2): -Hgb A1c 7.8 08/2019 -Hold oral agents and utilize NovoLog protocol while hospitalized (4) Hypothyroidism: -Continue levothyroxine (5) DVT prophylaxis: -SQ Lovenox History of Present Illness Chief Complaint: Hives, allergic reaction Primary Care Provider: Rosita Diaz PA-C 70-year-old female with PMH CAD s/p OMAR to proximal circumflex 08/07/2020 and previous mid LAD OMAR, DM type II, hypothyroidism, history of breast cancer, and other problems to below who presents the ED for evaluation of hives and allergic reaction. Patient recently admitted to [facility] 08/07 through 08/09 for chest pain and underwent cardiac catheterization and received OMAR to proximal circumflex. Post cath, patient developed lip swelling and hives and was treated with Benadryl and steroids. Reaction initially thought to be secondary to IV dye from cardiac cath. Patient discharged yesterday on prednisone, famotidine, scheduled Benadr yl. Patient reports that since returning home, hives have significantly worsened and cover her entire body. She denies difficulty swallowing and shortness of breath. No chest pain or palpitations. Denies lightheadedness, dizziness, diaphoresis, syncopal events. No abdominal pain, nausea, vomiting, diarrhea. Denies any urinary symptoms. In the ED, pharmacist completed extensive chart review and identified that patient is likely having a reaction to Plavix. Patient received IV famotidine, IV Solu-Medrol 125 mg, Benadryl 25 mg IV, epinephrine IM x 2 doses. Cardiology was contacted who recommended switching the patient to Brilinta. Patient reports taking Brilinta in 2018 after cardiac cath at that time and tolerated without difficulty. Allergies Allergy/AdvReac Type Severity Reaction Status Date / Time clopidogrel Allergy Severe Lip Verified 08/10/20 09:57 swelling, hives adhesive Allergy Mild ITCHY Verified 08/10/20 09:24 latex Allergy Mild LOCALIZED Verified 08/10/20 09:24 RASH lisinopril Allergy Swelling Verified 08/10/20 09:24 of Lip/Tongue/Throat Home Medications Medication Instructions Recorded Confirmed Type Jardiance 10 mg PO QAM 07/02/20 08/10/20 History aspirin 81 mg PO HS 07/02/20 08/10/20 History citalopram 30 mg PO HS 07/02/20 08/10/20 History ergocalciferol (vitamin D2) 1,250 mcg PO WK 07/02/20 08/10/20 History [Vitamin D2] levothyroxine 88 mcg PO DAILYBB 07/02/20 08/10/20 History metoprolol tartrate 12.5 mg PO Q12H 07/02/20 08/10/20 History rosuvastatin 40 mg PO QAM 07/02/20 08/10/20 History amlodipine [Norvasc] 5 mg PO HS #30 tab 08/09/20 08/10/20 Rx clopidogrel 75 mg PO QAM #30 tab 08/09/20 08/10/20 Rx diphenhydramine HCl [Benadryl] 25 mg PO Q8H 5 Days #15 cap 08/09/20 08/10/20 Rx famotidine 20 mg PO BID 5 Days #10 tab 08/09/20 08/10/20 Rx prednisone 20 mg PO DAILY #5 tab 08/09/20 08/10/20 Rx Past Med/Surg History Medical History (Updated 08/10/20 @ 14:55 by HAYDEE Dieog) Breast cancer CAD (coronary artery disease) 2018-OMAR to mid LAD 08/07/2020-OMAR to proximal circumflex DM type 2 (diabetes mellitus, type 2) Dyslipidemia Hypothyroidism Surgical History Hx of appendectomy Hx of cholecystectomy Hx of tubal ligation S/P lumpectomy, right breast Family History Father Heart disease Social History Smoking Status: Never smoker Tobacco Type: Cigarettes Second Hand Exposure: No; Do You Dip or Chew Tobacco: No; Tobacco Cessation Education Requested by Patient: No Hx Alcohol Use: No Hx Substance Use: No Preferred Language: Chinese Communication Ability: Effective Registered Nurse Required: No Beliefs That Will Affect Care: None marital status: Current Living Situation: Spouse Other Information That Helps Us Care for You: No Feels Safe at Home: Yes Safety Concerns: Feels Safe At This Time Assistive Devices: Glasses Review of Systems Review of Systems: ROS per HPI, all other systems reviewed and negative Physical Exam Constitutional: WD/WN, vitals as above Eyes: PERRL, conjunctivae normal, anicteric sclerae ENMT: external ear and nose normal, oropharynx normal Respiratory: normal respiratory effort, lungs clear to auscultation Cardiovascular: Rate/Rhythm: regular rate and regular rhythm Vessels: normal peripheral pulses Extremities: no edema Gastrointestinal (Abdomen): normal bowel sounds, soft, nontender, no hepatosplenomegaly Musculoskeletal: no cyanosis or clubbing, extremities motor strength 5/5 Skin: + rash (fading urticaria covering entire body) Neurologic: PERRL, EOMI, accommodation nl, no face palsy, no dysarthria Psychiatric: A+Ox3, euthymic affect Results & Data Results & Data ([facility]) Vital Signs (Past 12 Hours) Vital Signs Temp Pulse Pulse Resp BP BP Pulse Ox 08/10/20 14:07 88 18 110/69 95 08/10/20 13:30 95 H 18 129/79 96 08/10/20 13:00 79 18 129/65 99 08/10/20 11:01 79 18 129/75 99 08/10/20 08:44 36.8 C 92 H 20 126/85 98 Code Status & VTE Plan VTE Prophylaxis Plan VTE Prophylaxis will be ordered: Yes Supervising Physician Co-Signing Physician Notes Pt was seen and examined. Agreed with Terri HUBBARD exam, assessment and plan. 70-year-old female with PMH CAD s/p OMAR to proximal circumflex 08/07/2020 and previous mid LAD OMAR, DM type II, hypothyroidism, history of breast cancer presents the ED for evaluation of hives and allergic reaction with diffused rash. Patient recently admitted to [facility] 08/07 through 08/09 for chest pain and underwent cardiac catheterization with stent placement. The next day after post cath she developed lip swelling and hives and was treated with Benadryl, pepcid and steroids. Swelling and rash improved significantly and she was discharged with prednisone, Benadryl and famotidine. Pt said that at home rash get worst (diffused all over her body) and itching. Denies difficulty swallowing, shortness of breath, chest pain, palpitations, abdominal pain, nausea, vomiting, diarrhea. In the ED, pharmacist completed extensive chart review and identified that patient is likely having a reaction to Plavix. Patient received IV famotidine, IV Solu-Medrol 125 mg, Benadryl 25 mg IV, epinephrine IM x 2 doses in the ER. Will change Plavix to Brilinta. Her repeat covid test negative. Will continue monitor closely. MD Mine (1) CAD (coronary artery disease) Associated angina: unspecified whether angina present Coronary Disease- Associated Artery/Lesion type: unspecified vessel or lesion type [place] vs. transplanted heart: unspecified whether [place] or transplanted heart Qualified Code(s): I25.10 - Atherosclerotic heart disease of [place] coronary artery without angina pectoris
--- NOTE | 2020-08-10 15:15 | Emergency Department Note ---
Impression & Plan Allergic reaction ED Provider Note NAME: GALILEO LAWSON AGE: 70 SEX: F : 1950 ARRIVES VIA: Walk-In INFORMANT: Patient, ED PROVIDER(S): Lalit Bai MD CHIEF COMPLAINT: Rash, hives HPI: This is a 70 year old female who had a cardiac cath on Monday. A stent was placed and the patient was subsequently placed on Plavix. The patient's daughter reports that the patient has been on Plavix. The patient has been taking Prednisone and Benadryl for the rash without any reduction in symptoms. The patient describes the rash as very itchy with no relief of the itchiness. She reports she is so itchy she cannot sleep. She reports nothing makes the itchiness better or worse. ROS: See above HPI for pertinent positives & negatives. A total of 10 systems reviewed and were otherwise negative. PAST MEDICAL HISTORY: See Below PAST SURGICAL HISTORY: See Below FAMILY HISTORY: See Below SOCIAL HISTORY: See Below HOME MEDICATIONS: See Below ALLERGIES: See Below VITALS: See Below PHYSICAL EXAMINATION: VITAL SIGNS - Vital signs and nursing notes were reviewed. GENERAL - 70-year-old female appearing stated age who is in no acute distress. Communicates well with provider and answers questions appropriately. SKIN -diffuse urticarial rash present on trunk legs face,. HEAD - NC/AT. EYES - PERRL with EOMI bilaterally. Sclera anicteric. Palpebral conjunctiva pink and moist with no injection noted. EARS - No deformities of external structures noted on gross examination bilaterally. NOSE - Midline and without cyanosis. No epistaxis or purulent drainage noted. Septum midline without deviation or septal hematoma noted. MOUTH/OROPHARYNX - Without perioral cyanosis. Buccal mucosa pink and moist and without leukoplakia. Tongue midline with equal elevation of palate bilaterally. No tonsillar hypertrophy, erythema, or exudates noted. NECK - Neck with FROM. Supple to palpation. No nuchal rigidity. LUNGS - Chest wall symmetric without accessory muscle use, intercostals retractions, or central cyanosis. Normal vesicular breath sounds CTA B/L. No wheezes, rales, or rhonchi appreciated. CARDIAC - RRR with S1/S2. No murmur, rubs, or gallops appreciated. ABDOMEN - Abdominal contour without pulsations or visible masses. BS normoactive all four quadrants. No tenderness, palpable masses, hepatosplenomegaly, or ascites noted. EXTREMITIES - No clubbing or peripheral cyanosis. No pretibial edema present. +3/5 radial, posterior tibial, and dorsalis pedis pulses palpated throughout. +5/5 strength noted in UE/LE bilaterally. NEUROLOGIC - Cranial nerves II through XII grossly intact. Sensory intact to light touch throughout. Patellar reflexes +2/4. PSYCH - A&Ox3 and cooperates fully with examiner. Pt is very pleasant and interacts well with examiner. MEDICAL DECISION MAKING: Patient was seen and evaluated as above in room A3. Review was performed of nursing notes and vital signs. I did review pertinent previous visits and patient history. After obtaining a thorough history and physical examination the above work up was performed. This is a 70-year-old female who presents emergency department complaining of diffuse rash. He reports that taking prednisone and Benadryl Has not helped. The patient was given fluids as well as Solu-Medrol Benadryl and Pepcid however this did not improve his symptoms. After this she was then given epinephrine. This improved the patient somewhat. The patient then needed additional doses of epinephrine based on this I do feel the patient should be admitted to the hospital. I did discuss the case to the hospital service who did agree with the patient. An order was placed for continuous cardiac monitoring. The monitor shows a rate of 88 with Normal SInus rhythm. The patient was evaluated during a period of high volume and high acuity during the global COVID-19 pandemic, and that diagnosis was suspected/considered upon their initial presentation. Their evaluation, treatment and testing was co nsistent with current guidelines for patients who present with complaints or symptoms that may be related to COVID-19. Patient was seen while provider was wearing PPE. Triage Nursing notes reviewed. Prior medical records reviewed Vital Signs: reviewed and remarkable for no significant abnormalities Differential diagnosis: Allergic reaction, anaphylaxis, urticaria, Galeano-Mohamud syndrome, toxic epidermal necrolysis, erythema multiforme, contact dermatitis, cellulitis, as well as other pathologies. ER treatment provided: See below Laboratory studies: As stated above and show below. Consult: Internal Medicine I have personally spent greater than 30 minutes of critical care time in the direct management of this patient. This includes bedside care, interpretation of diagnostic studies, and testing, discussion with consultants, patient, and family members, and other required patient management activities. This 30 minutes is in excess of all separately billable procedures. Past Med/Surg History Medical History (Updated 08/13/20 @ 01:52 by Lalit Bai MD) Breast cancer Dyslipidemia Surgical History Hx of appendectomy Hx of cholecystectomy Hx of tubal ligation S/P lumpectomy, right breast Family History Father Heart disease Social History Smoking Status: Never smoker Tobacco Type: Cigarettes Second Hand Exposure: No; Do You Dip or Chew Tobacco: No; Tobacco Cessation Education Requested by Patient: No Hx Alcohol Use: No Hx Substance Use: No Preferred Language: Czech Communication Ability: Effective Lamps Tester And Inspector Required: No Beliefs That Will Affect Care: None marital status: Current Living Situation: Spouse Other Information That Helps Us Care for You: No Feels Safe at Home: Yes Safety Concerns: Feels Safe At This Time Assistive Devices: Glasses Allergies Allergies Allergy/AdvReac Type Severity Reaction Status Date / Time clopidogrel Allergy Severe Lip Verified 08/10/20 09:57 swelling, hives adhesive Allergy Mild ITCHY Verified 08/10/20 09:24 latex Allergy Mild LOCALIZED Verified 08/10/20 09:24 RASH lisinopril Allergy Swelling Verified 08/10/20 09:24 of Lip/Tongue/Throat Home Meds Home Medications Medication Instructions Recorded Confirmed Jardiance 10 mg PO QAM 07/02/20 08/10/20 aspirin 81 mg PO HS 07/02/20 08/10/20 citalopram 30 mg PO HS 07/02/20 08/10/20 ergocalciferol (vitamin D2) 1,250 mcg PO WK 07/02/20 08/10/20 [Vitamin D2] levothyroxine 88 mcg PO DAILYBB 07/02/20 08/10/20 metoprolol tartrate 12.5 mg PO Q12H 07/02/20 08/10/20 rosuvastatin 40 mg PO QAM 07/02/20 08/10/20 Previous Rx's Medication Instructions Recorded amlodipine [Norvasc] 5 mg PO HS #30 tab 08/09/20 prednisone 20 mg PO DAILY #5 tab 07/04/21 diphenhydramine HCl [Benadryl] 25 mg PO Q6H PRN #30 cap 08/11/20 epinephrine [EpiPen] 0.3 mg IM ONCE PRN #1 ea 08/11/20 famotidine 20 mg PO BID #30 tab 08/11/20 prednisone 40 mg PO DAILY #7 tab 08/11/20 ticagrelor [Brilinta] 90 mg PO BID #60 tab 08/11/20 Results & Data (ED) Vital Signs Vital Signs - 24 hr 08/10/20 08:44 08/10/20 11:01 08/10/20 13:00 Temperature 36.8 C Temperature Source Temporal Artery Scan Pulse Rate 92 H Pulse Rate [Left] 79 79 Pulse Rhythm Regular Pulse Rhythm [Left] Regular Regular Pulse Strength Normal Pulse Strength [Left] Normal Normal Respiratory Rate 20 18 18 Respiratory Effort / Characteristics Non-Labored Non-Labored Non-Labored Respiratory Depth Normal Normal Normal Respiratory Pattern Regular Regular Regular Blood Pressure 126/85 Blood Pressure [Left Arm] 129/75 129/65 Blood Pressure Mean 98 Blood Pressure Mean [Left Arm] 93 86 Blood Pressure Position Sitting Blood Pressure Position [Left Arm] Sitting Sitting Pulse Oximetry 98 99 99 Oxygen Delivery Method Room Air Room Air Room Air Sepsis Recent Fever Within 48 Hours No Sepsis New/Unexplained Change in Mental Status N/A Sepsis Action Taken by Nursing No Action Required 08/10/20 13:30 08/10/20 14:07 Temperature Temperature Source Pulse Rate Pulse Rate [Left] 95 H 88 Pulse Rhythm Pulse Rhythm [Left] Regular Regular Pulse Strength Pulse Strength [Left] Normal Normal Respiratory Rate 18 18 Respiratory Effort / Characteristics Non-Labored Respiratory Depth Normal Normal Respiratory Pattern Regular Regular Blood Pressure Blood Pressure [Left Arm] 129/79 110/69 Blood Pressure Mean Blood Pressure Mean [Left Arm] 95 82 Blood Pressure Position Blood Pressure Position [Left Arm] Lying Lying Pulse Oximetry 96 95 Oxygen Delivery Method Room Air Room Air Sepsis Recent Fever Within 48 Hours Sepsis New/Unexplained Change in Mental Status Sepsis Action Taken by Nursing Laboratory Data Result diagrams: 08/10/20 15:50 08/10/20 15:50 Lab Results 08/10/20 Range/Units 13:36 COVID-19 Eval Order Covid19 at [facility] Administered Medications Discontinued Medications Amlodipine Besylate (Amlodipine Besylate 5 Mg Tab) 5 mg PO HS FRANNY Stop: 09/09/20 20:59 Last Admin: 08/10/20 20:57 Dose: 5 mg Documented by: [id number] Aspirin (Aspirin 81 Mg Ectab) 81 mg PO [facility] Stop: 09/09/20 20:59 Last Admin: 08/10/20 20:56 Dose: 81 mg Documented by: [id number] Citalopram Hydrobromide (Citalopram 20 Mg Tab) 30 mg PO [facility] Stop: 09/09/20 20:59 Last Admin: 08/10/20 20:57 Dose: 30 mg Documented by: [id number] Diphenhydramine HCl (Diphenhydramine 50 Mg/Ml Vial) 25 mg IV NOW STA Stop: 08/10/20 09:34 Last Admin: 08/10/20 09:56 Dose: 25 mg Documented by: [id number] Diphenhydramine HCl (Diphenhydramine Capsule 25 Mg Cap) 25 mg PO Q8H FRANNY Stop: 09/09/20 17:35 Last Admin: 08/11/20 02:30 Dose: Not Given Documented by: [id number] Admin: 08/10/20 19:11 Dose: 25 mg Documented by: [id number] Diphenhydramine HCl (Diphenhydramine Capsule 25 Mg Cap) 25 mg PO Q8H FRANNY Stop: 09/10/20 05:59 Last Admin: 08/11/20 12:50 Dose: 25 mg Documented by: [id number] Admin: 08/11/20 06:26 Dose: 25 mg Documented by: [id number] Enoxaparin Sodium (Enoxaparin Inj 40 Mg/0.4 Ml Syr) 40 mg SQ Q24H FRANNY Stop: 09/09/20 17:35 Last Admin: 08/10/20 20:58 Dose: 40 mg Documented by: [id number] Epinephrine HCl (Epinephrine Inj 1 Mg/Ml Amp) 0.3 mg IM NOW STA Stop: 08/10/20 10:59 Last Admin: 08/10/20 11:17 Dose: 0.3 mg Documented by: [id number] Epinephrine HCl (Epinephrine Adult Auto-Inject 0.3 Mg Syr) 0.3 mg IM NOW STA Stop: 08/10/20 11:00 Last Admin: 08/10/20 14:36 Dose: Not Given Documented by: [id number] Epinephrine HCl (Epinephrine Inj 1 Mg/Ml Amp) 0.3 mg IM NOW STA Stop: 08/10/20 11:50 Last Admin: 08/10/20 11:52 Dose: 0.3 mg Documented by: [id number] Famotidine (Famotidine 20 Mg Tab) 20 mg PO BID FRANNY Stop: 09/09/20 20:59 Last Admin: 08/11/20 08:47 Dose: 20 mg Documented by: [id number] Admin: 08/10/20 20:57 Dose: 20 mg Documented by: [id number] Sodium Chloride (Nss 1000ml) 1,000 mls @ 999 mls/hr IV .Q1H1M ONE Stop: 08/10/20 10:33 Last Infusion: 08/10/20 11:02 Dose: 0 mls/hr Documented by: [id number] Admin: 08/10/20 09:56 Dose: 999 mls/hr Documented by: [id number] Famotidine (Pepcid 20mg Iv Push) 20 mg in 5 mls @ 2.5 mls/min IV NOW STA Stop: 08/10/20 09:34 Last Admin: 08/10/20 09:56 Dose: 2.5 mls/min Documented by: [id number] Insulin Aspart (Insulin Aspart 100 Units/Ml 3 Ml Pen) 0 units SC ACHS FRANNY Stop: 09/09/20 17:59 Last Admin: 08/11/20 18:16 Dose: 5 units Documented by: [id number] Cosigned by: [id number] Admin: 08/11/20 12:26 Dose: 6 units Documented by: [id number] Cosigned by: [id number] Admin: 08/11/20 08:52 Dose: 8 units Documented by: [id number] Cosigned by: [id number] Admin: 08/10/20 20:52 Dose: 7 units Documented by: [id number] Cosigned by: [id number] Admin: 08/10/20 19:12 Dose: 5 units Documented by: [id number] Cosigned by: [id number] Insulin Aspart (Insulin Aspart 100 Units/Ml 3 Ml Pen) 0 units SC 0000,0400 [facility] Stop: 08/11/20 04:01 Last Admin: 08/11/20 04:13 Dose: 2 units Documented by: [id number] Cosigned by: [id number] Admin: 08/11/20 00:15 Dose: 5 units Documented by: [id number] Cosigned by: [id number] Insulin Glargine (Insulin Glargine Solostar 100 Units/Ml 3 Ml Pen) 20 units SC NOW ONE Stop: 08/10/20 18:31 Last Admin: 08/10/20 19:17 Dose: 20 units Documented by: [id number] Cosigned by: [id number] Insulin Human NPH (Novolin-N (Nph) Per Unit Charge) 12 units SQ DAILY FRANNY Stop: 08/11/20 12:00 Last Admin: 08/11/20 08:53 Dose: 12 units Documented by: [id number] Cosigned by: [id number] Levothyroxine Sodium (Levothyroxine Sodium 88 Mcg Tablet) 88 mcg PO DAILYBB FRANNY Stop: 09/10/20 06:29 Last Admin: 08/11/20 05:44 Dose: 88 mcg Documented by: [id number] Loratadine (Loratadine 10 Mg Tab) 10 mg PO NOW ONE Stop: 08/11/20 00:37 Last Admin: 08/11/20 00:48 Dose: 10 mg Documented by: [id number] Methylprednisolone (Methylprednisolone 125 Mg/2 Ml Vial) 125 mg IV NOW STA Stop: 08/10/20 09:34 Last Admin: 08/10/20 09:56 Dose: 125 mg Documented by: [id number] Metoprolol Tartrate (Metoprolol Tartrate 25 Mg Tab) 12.5 mg PO Q12H FRANNY Stop: 09/09/20 17:35 Last Admin: 08/11/20 08:46 Dose: 12.5 mg Documented by: [id number] Admin: 08/10/20 20:56 Dose: 12.5 mg Documented by: [id number] Prednisone (Prednisone 20 Mg Tab) 40 mg PO DAILY FRANNY Stop: 09/10/20 06:04 Last Admin: 08/11/20 06:22 Dose: 40 mg Documented by: [id number] Rosuvastatin Calcium (Rosuvastatin Calcium 20 Mg Tab) 40 mg PO QAM FRANNY Stop: 09/10/20 08:59 Last Admin: 08/11/20 08:47 Dose: 40 mg Documented by: [id number] Ticagrelor (Ticagrelor 90 Mg Tab) 90 mg PO NOW ONE Stop: 08/10/20 10:01 Last Admin: 08/10/20 10:44 Dose: 90 mg Documented by: [id number] Ticagrelor (Ticagrelor 90 Mg Tab) 90 mg PO BID FRANNY Stop: 09/09/20 20:59 Last Admin: 08/11/20 08:47 Dose: 90 mg Documented by: [id number] Admin: 08/10/20 20:58 Dose: 90 mg Documented by: [id number] Discharge Plan Visit Data Chief Complaint: Allergic Reaction Stated Complaint: HIVES, POSSIBLE ALLERGIC REACTION ED Provider: Lalit Bai Discharge Problem: Allergic reaction Patient Disposition: Admitted As Inpatient Discharge Instructions Interventions: ED Discharge Assessment Last Done: 08/10/20 17:18 Discharge Problem: Allergic reaction Qualifiers: Encounter type: initial encounter Qualified Code(s): T78.40XA - Allergy, unspecified, initial encounter
[2020-08-10 15:58] LABS: Hematocrit (blood only) 43.2 % (37-47); Hemoglobin 14.9 g/dL (12.0-16.0); Mean Corpuscular Hemoglobin 31.2 pg (25-34); Mean Corpuscular Hgb Conc 34.5 g/dL (32-36); Mean Corpuscular Volume 90.4 fL (80-100); Mean Platelet Volume 10.4 fL (7.4-10.4); Platelet Count 470 K/uL (130-400); RDW Coefficient of Variation 13.7 % (11.5-14.5); RDW Standard Deviation 45.3 fL (36.4-46.3); Red Blood Count 4.78 M/uL (4.2-5.4); White Blood Count 7.72 K/uL (4.8-10.8)
[2020-08-10 16:22] LABS: BUN Creatinine Ratio 20.9 (10-20); Calcium 8.4 mg/dl (8.5-10.1); Creatinine Clr Calc Pharmacy 54.9 ml/min; Est GFR (African American) 95.4 ml/min; Est GFR (Non-African American) 82.3 ml/min; Potassium 4.1 mmol/L (3.5-5.1)
[2020-08-10 16:32] LABS: Beta-Hydroxybutyrate 6.09 mg/dl (0.2-2.81)
[2020-08-10] MEDS ORDERED: GLUCOSE 40% GEL 15 GM TUBE PO PRN (17:36)
[2020-08-10] MEDS ORDERED: GLUCOSE 10 TABS/TUBE PO PRN (17:36)
[2020-08-10] MEDS ORDERED: CARBOHYDRATES FOR HYPOGLYCEMIA PO PRN (17:36)
[2020-08-10] MEDS ORDERED: ACETAMINOPHEN 325 MG TAB PO PRN (17:36)
[2020-08-10] MEDS ORDERED: GLUCAGON FOR INJ 1 MG VIAL SQ PRN (17:36)
[2020-08-10] MEDS ORDERED: DEXTROSE 50% 50 ML SYRINGE IV PRN (17:36)
[2020-08-10] MEDS ORDERED: PHARMACY GLYCEMIC MGMT CONSULT PRN (17:54)
[2020-08-10] MEDS ORDERED: INSULIN GLARGINE SOLOSTAR 100 UNITS/ML 3 ML PEN SC ONE (18:30)
[2020-08-10] MEDS: diphenhydrAMINE Capsule 25 MG CAP PO SCH (19:11)
[2020-08-10] MEDS: INSULIN ASPART 100 UNITS/ML 3 ML PEN SC SCH ×2 (19:12→20:52)
[2020-08-10] MEDS: METOPROLOL TARTRATE 25 MG TAB PO SCH (20:56)
[2020-08-10] MEDS: FAMOTIDINE 20 MG TAB PO SCH (20:57)
[2020-08-10] MEDS: TICAGRELOR 90 MG TAB PO SCH (20:58)
[2020-08-10] MEDS ORDERED: amLODIPine BESYLATE 5 MG TAB PO SCH (21:00)
[2020-08-10] MEDS ORDERED: ENOXAPARIN INJ 40 MG/0.4 ML SYR SQ SCH (21:00)
[2020-08-10] MEDS ORDERED: CITALOPRAM 20 MG TAB PO SCH (21:00)
[2020-08-10] MEDS ORDERED: ASPIRIN 81 MG ECTAB PO SCH (21:00)
[2020-08-11] MEDS: INSULIN ASPART 100 UNITS/ML 3 ML PEN SC SCH ×5 (00:15→18:16)
[2020-08-11] MEDS ORDERED: LORATADINE 10 MG TAB PO ONE (00:36)
[2020-08-11] MEDS: diphenhydrAMINE Capsule 25 MG CAP PO SCH ×3 (02:30→12:50)
[2020-08-11] MEDS ORDERED: predniSONE 20 MG TAB PO SCH ×2 (06:05→09:00)
[2020-08-11] MEDS ORDERED: diphenhydrAMINE Capsule 25 MG CAP PO PRN (06:15)
[2020-08-11] MEDS ORDERED: LEVOTHYROXINE SODIUM 88 MCG TABLET PO SCH (06:30)
[2020-08-11] MEDS: METOPROLOL TARTRATE 25 MG TAB PO SCH (08:46)
[2020-08-11] MEDS: TICAGRELOR 90 MG TAB PO SCH (08:47)
[2020-08-11] MEDS: FAMOTIDINE 20 MG TAB PO SCH (08:47)
[2020-08-11] MEDS ORDERED: NovoLIN-N (NPH) PER UNIT CHARGE SQ SCH (09:00)
[2020-08-11] MEDS ORDERED: ROSUVASTATIN CALCIUM 20 MG TAB PO SCH (09:00)
--- NOTE | 2020-08-11 11:04 | Pharmacy Report ---
Pharmacy Glycemic Short Note 2 - Date of Service August 11, 2020 - Glycemic Short BSG Results (Last 24 hours): 08/10/20 08/10/20 08/10/20 15:50 17:35 20:22 Glucose 323 H* POC Glucose 265 H 314 H* 08/10/20 08/11/20 08/11/20 20:50 00:07 04:06 Glucose POC Glucose 293 H 243 H 189 H 08/11/20 07:32 Glucose POC Glucose 110 H OUTPATIENT ANTIDIABETIC REGIMEN: * Jardiance 10 mg daily * A1c 7.8% 08/08/20 ASSESSMENT: * 70 year old admitted for allergic reaction, possibly to Plavix. Started on steroids d/t significant rash, shortness of breath and difficulty swallowing. Type 2 diabetic managed on jardiance at home. * Pharmacy consulted to help with glycemic management. BSGs on arrival in upper 200s. Patient previously on prednisone 20 mg at home, likely contributing to elevated BSGs. * Patient received total of 37 units of insulin yesterday, of which 20 units were basal insulin last evening * Fasting BSG much improved at 110 mg/dL, likely still seeing effects of basal insulin. Starting prednisone 40 mg daily. Will start NPH 0.2 units/kg daily with prednisone today. Typically would aim for higher dosing of NPH, however Lantus still providing coverage therefore will start at lower dosing PLAN FOR INPATIENT GLYCEMIC CONTROL: * Hold outpatient oral diabetes medications * Basal insulin * NPH 12 units daily x 1 * Bolus insulin * NovoLog per scale ACHS or Q6hrs while NPO * Goal Range: Low 110 mg/dL - High 140 mg/dL * Correction Factor: 30 mg/dL/unit * Nutritional / Prandial insulin per carb ratio of 1 unit per 10 grams CHO consumed PLAN FOR DISCHARGE: * A1c ~7.8% - reasonable goal for patient is less than 7% * Dosing of Jardiance could be titrated for additional glycemic control, however this could be discussed outpatient with patient's PCP. Would recommend further improvement of healthy lifestyle (diet, exercise) first before adjustment of medication are made * Would encourage continued self monitoring of blood sugars outpatient, especially if continued prednisone use
--- NOTE | 2020-08-11 13:44 | Hospitalist Progress Note ---
Date of Service August 11, 2020 Assessment & Plan (1) Allergic reaction: Present on admission with worsening rash Thought to be delayed reaction from the contrast, but pt continue to have rash But pharmacy did an extensive chart review, reaction seems to be due to Plavix. Pt was discharged on on prednisone, famotidine, Benadryl. In the ER, received IV famotidine, IV Benadryl, IV Solu-Medrol 125 mg, epinephrine IM x2 Airway intact, no signs of angioedema Continue famotidine twice daily, scheduled Benadryl every 8 hours, prednisone 40 mg daily Will consider follow up with allergies specialist outpatient Clinically improved (2) CAD (coronary artery disease): S/p cardiac cath w/ stent on 08/07 with successfully OMAR to proximal circumflex on 08/07/2020 Plavix changed to Brilinta per Cardio Patient reports taking Brilinta in 2018 after cardiac cath at that time and tolerated without difficulty. Continue aspirin, statin, beta-guillermina (3) DM type 2 (diabetes mellitus, type 2): Most Hgb A1c 7.8 on 08/2020 Oral DM on hold during the hospital course On NovoLog protocol while hospitalized (4) Hypothyroidism: Continue levothyroxine COVID 19 Covid 19 on last admission was positive Repeat COVID test this admission negative Pt is asymptomatic spoke to infectious disease control and recommended if pt wants to be off isolation, we can repeat the covid 19 test again today If 2 negative tests with 24 hrs, pt can be off isolation Plan to discharge home today (5) DVT prophylaxis: -SQ Lovenox Admission and Anticipated Discharge Date Admission Date: August 10, 2020 Subjective Pt was seen and examined for follow up of rash and hives Lying in bed with no distress using her tablet Pt said that rash is getting better No itching this morning, but nurse call few minutes ago and said pt was itching Denies any chest pain, palpitation, dizziness and SOB Review of Systems Review of Systems: All systems reviewed & are unremarkable except as noted in Subjective Physical Exam Physical Exam: General- No acute distress Head- atraumatic Eyes- PERRL, EOMI, ENT- oropharynx clear Neck- supple, no JVD Lungs- clear to auscultation Heart- regular rhythm; no murmur Abdomen- normal bowel sounds, soft, nontender Extremities- no calf tenderness Neuro- alert, oriented x 3; PERRL, EOMI; no facial palsy; no dysarthria Skin- warm & dry, rash improves significantly Results & Data Results & Data ([facility]) Vital Signs (Past 12 Hours) Vital Signs Temp Pulse Pulse Resp BP Pulse Ox 08/11/20 11:38 36.7 C 73 18 122/71 97 08/11/20 08:08 36.4 C L 69 18 127/69 96 08/11/20 08:00 74 08/11/20 04:07 36.6 C 69 20 131/78 96 (1) CAD (coronary artery disease) Associated angina: unspecified whether angina present Coronary Disease- Associated Artery/Lesion type: unspecified vessel or lesion type [place] vs. transplanted heart: unspecified whether [place] or transplanted heart Qualified Code(s): I25.10 - Atherosclerotic heart disease of [place] coronary artery without angina pectoris
--- NOTE | 2020-08-19 08:01 | Discharge Summary ---
Date of Service August 11, 2020 Admission HPI Per Admitting Provider 70-year-old female with PMH CAD s/p OMAR to proximal circumflex 08/07/2020 and previous mid LAD OMAR, DM type II, hypothyroidism, history of breast cancer, and other problems to below who presents the ED for evaluation of hives and allergic reaction. Patient recently admitted to [facility] 08/07 through 08/09 for chest pain and underwent cardiac catheterization and received OMAR to proximal circumflex. Post cath, patient developed lip swelling and hives and was treated with Benadryl and steroids. Reaction initially thought to be secondary to IV dye from cardiac cath. Patient discharged yesterday on prednisone, famotidine, scheduled Benadryl. Patient reports that since returning home, hives have significantly worsened and cover her entire body. She denies difficulty swallowing and shortness of breath. No chest pain or palpitations. Denies lightheadedness, dizziness, diaphoresis, syncopal events. No abdominal pain, nausea, vomiting, diarrhea. Denies any urinary symptoms. In the ED, pharmacist completed extensive chart review and identified that patient is likely having a reaction to Plavix. Patient received IV famotidine, IV Solu-Medrol 125 mg, Benadryl 25 mg IV, epinephrine IM x 2 doses. Cardiology was contacted who recommended switching the patient to Brilinta. Patient reports taking Brilinta in 2018 after cardiac cath at that time and tolerated without difficulty. Admission Exam Per Admitting Provider Constitutional: WD/WN, vitals as above Eyes: PERRL, conjunctivae normal, anicteric sclerae ENMT: external ear and nose normal, oropharynx normal Respiratory: normal respiratory effort, lungs clear to auscultation Cardiovascular: regular rate and regular rhythm Vessels: normal peripheral pulses Extremities: no edema Gastrointestinal: normal bowel sounds, soft, nontender, no hepatosplenomegaly Musculoskeletal: no cyanosis or clubbing, extremities motor strength 5/5 Skin: + rash (fading urticaria covering entire body) Neurologic: PERRL, EOMI, accommodation nl, no face palsy, no dysarthria Psychiatric: A+Ox3, euthymic affect Principal Diagnosis Allergic reaction: CAD (coronary artery disease): DM type 2 (diabetes mellitus, type 2): Hypothyroidism: Discharge Exam General- No acute distress Head- atraumatic Eyes- PERRL, EOMI, ENT- oropharynx clear Neck- supple, no JVD Lungs- clear to auscultation Heart- regular rhythm; no murmur Abdomen- normal bowel sounds, soft, nontender Extremities- no calf tenderness Neuro- alert, oriented x 3; PERRL, EOMI; no facial palsy; no dysarthria Skin- warm & dry, rash improves significantly Discharge Data Allergies Allergy/AdvReac Type Severity Reaction Status Date / Time clopidogrel Allergy Severe Lip Verified 08/10/20 09:57 swelling, hives adhesive Allergy Mild ITCHY Verified 08/10/20 09:24 latex Allergy Mild LOCALIZED Verified 08/10/20 09:24 RASH lisinopril Allergy Swelling Verified 08/10/20 09:24 of Lip/Tongue/Throat Consultations 08/10/20 14:30 ED Decision to Admit Stat Hospital Course (1) Allergic reaction: Present on admission with worsening rash Thought to be delayed reaction from the contrast, but pt continue to have rash But pharmacy did an extensive chart review, reaction seems to be due to Plavix. Pt was discharged on on prednisone, famotidine, Benadryl. In the ER, received IV famotidine, IV Benadryl, IV Solu-Medrol 125 mg, epinephrine IM x2 Airway intact, no signs of angioedema Continue famotidine twice daily, scheduled Benadryl every 8 hours, prednisone 40 mg daily Will consider follow up with allergies specialist outpatient Clinically improved (2) CAD (coronary artery disease): S/p cardiac cath w/ stent on 08/07 with successfully OMAR to proximal circumflex on 08/07/2020 Plavix changed to Brilinta per Cardio Patient reports taking Brilinta in 2018 after cardiac cath at that time and tolerated without difficulty. Continue aspirin, statin, beta-guillermina (3) DM type 2 (diabetes mellitus, type 2): Most Hgb A1c 7.8 on 08/2020 Oral DM on hold during the hospital course On NovoLog protocol while hospitalized (4) Hypothyroidism: Continue levothyroxine COVID 19 Covid 19 on last admission was positive Repeat COVID test this admission negative Pt is asymptomatic spoke to infectious disease control and recommended if pt wants to be off isolation, we can repeat the covid 19 test again today If 2 negative tests with 24 hrs, pt can be off isolation Plan to discharge home today (5) DVT prophylaxis: -SQ Lovenox Total Time Total Time Spent Total Time Spent (In Minutes): 35 minutes Discharge Plan Discharge Items Patient Disposition: Home - Self-Care Reason For Visit: ALLERGIC REACTION Discharge Diagnosis: Allergic reaction: CAD (coronary artery disease): DM type 2 (diabetes mellitus, type 2): Hypothyroidism: Activity: Resume your previous activity Non-emergency contact: Primary Care Provider and Donkey Ride Operator Call non-emergency contact if: you have any medication questions and your symptoms worsen Follow-up/Referrals: Rosita Diaz PA-C [Primary Care Provider] - (Date & Time 08/14/2020 3:40 PM Provider Allie Bull MD Department [facility] ) Diet: Carb Consistent or DM2 and Heart Healthy Addtl Attending Provider Instructions: Follow up with your primary care provider Dr. Bull on 08/14/2020 @ 3:40 PM at the [facility] Follow up with cardiology in 2 - 4 weeks Consider outpatient referral with an personal computer specialist if symptoms continue Continue dual antiplatelet therapy with aspirin and Brillinta Your provider or retail stocker will refer you for cardiac rehab Avoid any other NSAID such as motrin, aleve, naproxen, ibuprofen, advil while on Brillinta and aspirin due to increase risk of bleeding Seeks urgent medical attention if you develop recurrent lips swelling or shortness of breath Continue to wear mask and quarantine for at least 10 days from the positive test Covid 19 test on 08/07/[address] operate any machine after taking the benadryl due to risk of drowsiness and lethargy Pending Studies at Discharge: No Stand-Alone Forms: My [facility] FreeCharge, Smoking Cessation Medications and DC Order Prescriptions: New Brilinta 90 mg Tablet 90 mg PO BID Qty: 60 RF: 0 prednisone 20 mg Tablet 40 mg PO DAILY Qty: 7 RF: 0 epinephrine [EpiPen] 0.3 mg/0.3 mL auto-injector 0.3 mg IM ONCE PRN (Reason: anaphylaxis) Qty: 1 RF: 0 Continued aspirin 81 mg Tablet,Delayed Release (Dr/Ec) 81 mg PO HS RF: 0 levothyroxine 88 mcg tablet 88 mcg PO DAILYBB RF: 0 citalopram 20 mg tablet 30 mg PO HS RF: 0 ergocalciferol (vitamin D2) [Vitamin D2] 1,250 mcg (50,000 unit) Capsule 1,250 mcg PO WK RF: 0 rosuvastatin 40 mg tablet 40 mg PO QAM RF: 0 metoprolol tartrate 25 mg tablet 12.5 mg PO Q12H RF: 0 Jardiance 10 mg tablet 10 mg PO QAM RF: 0 amlodipine [Norvasc] 5 mg Tablet 5 mg PO HS Qty: 30 RF: 0 prednisone 20 mg tablet 20 mg PO DAILY Qty: 5 RF: 0 Changed diphenhydramine HCl [Benadryl] 25 mg Capsule 25 mg PO Q6H PRN (Reason: rash and itching) Qty: 30 RF: 0 Discontinued clopidogrel 75 mg Tablet 75 mg PO QAM Qty: 30 RF: 0 famotidine 20 mg Tablet 20 mg PO BID 5 Days Qty: 10 RF: 0 Discharge Orders: Discharge Order (Routine); Ordered 08/11/20 Ordered By: Julian Blount Admission Data Admit Date/Time: 08/10/20 13:20 Attending Provider: Julian Blount Admit Provider: Julian Blount Primary Care Provider: Rosita Diaz Other Providers: Julian Blount Other Interventions: Discharge Summary Assessment (RN) Last Done: 08/11/20 17:13
== END 2020-08-11 18:16 | disposition home or self-care (01) ==
LOC: 2S 08:30 → ED 08:30 → 2S 17:18